=== PATIENT | male | born 1950 | race African-American/Black ===

== ENCOUNTER → 2020-01-27 | Outpatient (CLI) | payer MEDICARE, OTHER ==
[2014-09-13 09:23] VITALS: BP 110/67
[~2020-01-27] MED LIST: ACYC400T PO; AMLO1TAB91 PO; ASPI81TA59 PO; DOXY20TA5 PO; FLUV40CA3 PO; GLUC100018 PO; INSU100C4 SQ; INSU100I11 SQ; INSU100I13 SQ; INSU100I17 SQ; INSU100V8 SQ; LEVO150T5 PO; METF500T16 PO; MULT-658 PO; OMEP20CA16 PO
== END | disposition home or self-care (01) ==
LOC: LAB 16:06
PROVIDERS: ATTEND Internal Medicine Gastroenterology
DX: Z01.818 Encounter for other preprocedural examination (principal); Z11.59 Encounter for screening for other viral diseases
CPT/HCPCS: C9803; U0003; 36415

== ENCOUNTER → 2020-02-01 | Day surgery (SDC) | payer MEDICARE, OTHER ==
[~2020-02-01] MED LIST changes: +IV RINGERS,LACTATED 1000ML 1,000 ML IV ONE; +IV RINGERS,LACTATED 1000ML 1,000 ML IV SCH; +PROPOFOL 10 MG/ML (20ML) VIAL. IV ONE
[2020-02-01 09:07] VITALS: BP 132/80
--- NOTE | 2020-02-01 10:18 | HP ---
ADMIT DATE: 02/01/2020 UPDATED HISTORY AND PHYSICAL REASON FOR CONSULTATION: History of colonic polyps. REFERRING PHYSICIAN: Ochoa Quiros MD HISTORY OF PRESENT ILLNESS: This is a 69-year-old -[place]ian male with past medical history significant for diabetes, history of colonic polyps, diverticulosis, hypothyroidism, hypertension, hyperlipidemia, is seen for interval colon exam. He has had polyps in the past. Bowel habits are regular without diarrhea or constipation. There has been no melena or hematochezia. Family history is unrevealing for colon cancer. He is otherwise without additional complaints. PAST MEDICAL HISTORY: Significant for hypertension, diabetes, hypothyroidism, gastroesophageal reflux disease. ALLERGIES: None. MEDICATIONS: Include acyclovir, amlodipine, aspirin, doxycycline, fluvastatin, glucosamine, insulin, levothyroxine, metformin, multivitamin, omeprazole. FAMILY HISTORY: Significant for gastric cancer with a sibling, colorectal cancer with mother, diabetes with an uncle, hypertension with both parents and pancreatic cancer in mother. PAST SURGICAL HISTORY: Status post eye surgery and vasectomy. REVIEW OF SYSTEMS: Per records. PHYSICAL EXAMINATION: GENERAL: Reveals a well-nourished, well-developed -[place]ian male who is alert, cooperative, in no acute distress. VITAL SIGNS: Temperature 97.5, pulse 81, respirations 20. LUNGS: Clear. CARDIOVASCULAR: Reveals an S1, S2 without S3, S4 or appreciable murmur. ABDOMEN: Reveals a soft abdomen, normal bowel sounds, without appreciable hepatosplenomegaly. EXTREMITIES: Reveals no cyanosis, clubbing or edema. IMPRESSION: History of colonic polyps. Surveillance exam is recommended at this time. Risks and benefits of procedure including risk of hemorrhage and perforation during the operation discussed. The patient is willing to proceed. CAROLINA MOELLER MD DR: MEME/haider JOB#: [id number] / [id number] ecc ____, ____
--- NOTE | 2020-02-02 17:07 | PATHOLOGY ---
[facility] Accession Number: [id number] . 01 Material submitted: . PART A: colon - TRANSVERSE POLYPECTOMY. Modifiers: transverse PART B: ileo-cecal valve - ILEOCECAL VALVE BIOPSY . 01 Clinical history: . Screening colon . 02 Diagnosis: A. Colonic mucosa, transverse colon polypectomy: - Tubular adenoma. . B. Colonic mucosa, ileocecal valve biopsies: - Tubulovillous adenoma, predominantly tubular. LBQ 02/02/2020 1309 Local . 02 Comment: There is no high grade dysplasia or evidence of malignancy. (JPM/db; 02/02/2020) . 02 Electronically signed: . Cm Powers MD, Pathologist NPI- [id number] . 01 Gross description: . A. The specimen is received in formalin, labeled "Lauri White, transverse polyp". Received is a segment of pale ball soft tissue measuring 0.3 cm in maximum dimensions. The specimen is submitted entirely in cassette A1. . B. The specimen is received in formalin, labeled "Lauri White, ileocecal bowel biopsy". Received are six segments of pale ball soft tissue ranging in size from 0.3 to 0.4 cm in maximum dimensions. The specimen is submitted entirely in cassette B1. (CAA; 02/01/2020) QA/QA 02/01/2020 1507 Local . 02 Pathologist provided ICD-10: D12.3, D12.0 . 02 CPT . 576318, 352932 Specimen Comment: A courtesy copy of this report has been sent to [phone], [phone] Specimen Comment: [id number] Specimen Comment: Report sent to / DR POOLE Performed at: [address] [place] [address] [address], [place], [place] [id number] MD Geraldo Monroe MD Phone: [phone] Performed at: [address] [id number] MD Cm Powers MD Phone: [phone]
== END | disposition home or self-care (01) ==
LOC: ENDOS 06:54
PROVIDERS: ATTEND Internal Medicine Gastroenterology
DX: Z12.11 Encounter for screening for malignant neoplasm of colon (principal); D12.3 Benign neoplasm of transverse colon; D12.0 Benign neoplasm of cecum; I10 Essential (primary) hypertension; E11.9 Type 2 diabetes mellitus without complications; E03.9 Hypothyroidism, unspecified; K21.9 Gastro-esophageal reflux disease without esophagitis; Z86.010 Personal history of colon polyps; Z79.899 Other long term (current) drug therapy; Z98.890 Other specified postprocedural states; Z79.4 Long term (current) use of insulin; Z79.82 Long term (current) use of aspirin; Z80.0 Family history of malignant neoplasm of digestive organs; Z83.3 Family history of diabetes mellitus; Z82.49 Family history of ischemic heart disease and other diseases of the circulatory system
CPT/HCPCS: 45380; 45385; 82962; 88305; J2704; 45384

== ENCOUNTER → 2020-04-05 | Outpatient (CLI) | payer MEDICARE ==
[2020-02-01 09:07] VITALS: BP 132/80
[~2020-04-05] MED LIST changes: -IV RINGERS,LACTATED 1000ML 1,000 ML IV ONE; -IV RINGERS,LACTATED 1000ML 1,000 ML IV SCH; -PROPOFOL 10 MG/ML (20ML) VIAL. IV ONE
[2020-04-05 15:11] LABS: HEMATOCRIT 43.1 % (39.0-53.0); HEMOGLOBIN 14.5 g/dL (13.0-17.5); WHITE BLOOD COUNT 5.1 x10^3/uL (4.0-11.0)
[2020-04-05 15:25] LABS: CREATININE 1.2 mg/dL (0.7-1.3); GFR 72.9; POTASSIUM 3.8 mmol/L (3.5-5.1)
== END | disposition home or self-care (01) ==
LOC: LAB 14:01
PROVIDERS: ATTEND Surgery
DX: Z01.818 Encounter for other preprocedural examination (principal); Z11.59 Encounter for screening for other viral diseases; K63.5 Polyp of colon
CPT/HCPCS: 80048; 85027; U0003

== ENCOUNTER 2020-04-10 11:14 | Inpatient (IN) | payer MEDICARE ==
[2020-04-10] VITALS (8 sets, daily range): BP systolic 115–140; BP diastolic 61–84
[~2020-04-10] VITALS: Ht 167.6 cm; Wt 90.7 kg
[~2020-04-10 11:14] MED LIST changes: +ACETAMINOPHEN 500 MG TABLET PO PRN; +DEXAMETHASONE SOD PHOS 20 MG/5 ML VIAL. ONE; +FAMOTIDINE 20 MG/2 ML VIAL ONE; +GLYCOPYRROLATE 1 MG/5 ML VIAL. ONE; +INDOCYANINE GREEN 25 MG VIAL. IVP ONE; +IV RINGERS,LACTATED 1000ML 1,000 ML IV SCH; +LIDOCAINE 2% PF 5 ML VIAL. ONE; +ONDANSETRON PF 4 MG/2 ML VIAL. IV PRN; +ONDANSETRON PF 4 MG/2 ML VIAL. ONE; +PROCHLORPERAZINE 10 MG/2 ML VIAL. IV PRN; +PROPOFOL 10 MG/ML (20ML) VIAL. IV ONE; +ROCURONIUM 50 MG/5 ML VIAL. ONE; +ePHEDrine PF IN SALINE 50 MG/10 ML SYRINGE. IV ONE; +fentaNYL PF VIAL 100 MCG/2 ML VIAL IV PRN; +fentaNYL PF VIAL 100 MCG/2 ML VIAL ONE
[2020-04-10] MEDS ORDERED: INSULIN LISPRO 100 UNIT/ML 3ML VIAL for OP,RR ONLY. SQ PRN (12:00)
[2020-04-10] MEDS ORDERED: BUPIVACAINE-EPI 0.25%-1:200000 MPF 30 ML VIAL. ONE (12:35)
[2020-04-10] MEDS ORDERED: MIDAZOLAM HCL/PF 2 MG/2 ML VIAL. ONE (12:37)
[2020-04-10] MEDS ORDERED: fentaNYL PF VIAL 100 MCG/2 ML VIAL ONE ×2 (13:21→16:28)
[2020-04-10] MEDS ORDERED: SEVOFLURANE > 120 MINUTES. IH ONE (13:42)
[2020-04-10] MEDS ORDERED: NEOSTIGMINE METHYLSULFATE 5 MG/5 ML SYRINGE. ONE (13:42)
[2020-04-10] MEDS: IV DEXTROSE 5%-LACT RINGERS 1,000 ML IV SCH (15:59)
--- NOTE | 2020-04-10 15:59 | PDOC4 ---
Operative Note Operative Note Date: 04/10/2020 at 1552 Preoperative diagnosis: Cecal polyp Postoperative diagnosis: Same Procedure: Robotic assisted laparoscopic right colon resection with primary anastomosis Surgeon: Salo Specimen: Terminal ileum and cecum Dictation: Patient is a 69-year-old gentleman who underwent colonoscopy was found to have a large polyp at the cecum was too big to be removed totally with the colonoscope. Biopsies were benign. Procedure of robotic assisted laparoscopic right colon resection was explained to the patient detail was benefits were also discussed including bleeding infection injury to intra- abdominal contents nonhealing of the anastomosis necessitating further or open operations alternatives to this procedure also discussed with the patient who seemed to understand and gave both verbal and written consent to have the procedure performed. Patient was taken to the operating room placed in the supine position general anesthesia was initiated once patient was sleeping in bed his abdomen was prepped and draped usual sterile fashion using ChloraPrep and area in the left upper quadrant was injected quarter percent Marcaine with epinephrine incision was made 11 blade scalpel and a 5 mm Visiport was placed under direct visualization in the abdomen and a pneumoperitoneum was created. 5 mm scope was placed within the abdomen and inspected. At this point a 8 mm da Duarte camera port was placed in the left midabdomen and 8 mm da Duarte port was placed in the left lower abdomen a 5 mm assist port was placed in the midline of the pelvis the 5 mm Visiport placed in left upper quadrant was changed out for a 12 mm ventral port. Surgeon went to the robotic console using a grasper and Endo Octavio scissors the terminal ileum was freed up from its lateral attachments with sharp dissection the white line of Toldt was taken down with sharp dissection. A window was propagated in the mesentery of the small bowel at the terminal ileum with Endo Octavio scissors and electrocautery and a ROSTIA stapler was used to staple and transect the terminal ileum. Using vessel sealer the mesentery was taken down along the terminal ileum and cecum to the midportion of the ascending colon and again a ROSITA stapler through the da Duarte port was used to staple and transect the colon 2 loads were used. The specimen was then placed in the right lower quadrant. The distal small bowel was brought up to the proximal colon a [id number] anastomosis was performed with a stapler and a isoperistaltic fashion. Using 3-0 Vicryl the proximal end of the colon was sewn to the proximal end of the small bowel a enterotomy was made in the small bowel as well as the colon and using the da Duarte stapler was brought in place through the enterotomies and a stapled anastomosis was performed. The enterotomy at the staple line was closed with a running 2 OV lock absorbable suture. Sutures removed from the abdomen the pneumoperitoneum was reduced the surgeon went back to the operative field and incision was made low in the midline incorporating the 5 mm port site the specimen was brought out through this incision. The peritoneum was closed with a running 2-0 Vicryl suture fascia was closed with a oh looped PDS. Skin was reapproximated all port sites for subcuticular Monocryl Mastisol Steri-Strips and island dressings were applied. Specimen was opened on the back table which did show a large polyp within the cecum this was sent for permanent pathology. Patient was awakened and extubated in the operating room taken to recovery in stable condition all sponge instrument needle counts listed as correct estimated blood loss 10 mL VIVIAN VAZQUEZ MD Apr 10, 2020 15:59
[2020-04-10] MEDS ORDERED: 0.9 % SODIUM CHLORIDE 10 ML DISP.SYRIN. IV PRN (16:00)
[2020-04-10] MEDS ORDERED: ONDANSETRON PF 4 MG/2 ML VIAL. IV PRN (16:00)
[2020-04-10] MEDS: fentaNYL PF VIAL 100 MCG/2 ML VIAL IV PRN ×2 (16:33→16:43)
[2020-04-10] MEDS ORDERED: KETOROLAC 30 MG/ML VIAL. ONE (16:57)
[2020-04-10] MEDS: MORPHINE SULFATE 2 MG/ML VIAL. IV PRN ×3 (17:00→21:40)
[2020-04-10] MEDS ORDERED: KETOROLAC 30 MG/ML VIAL. IVP ONE (17:00)
[2020-04-10] MEDS ORDERED: HYDROmorphone 2 MG/ML VIAL ONE (17:14)
[2020-04-10] MEDS: HYDROmorphone 2 MG/ML VIAL IV PRN ×4 (17:18→17:49)
[2020-04-10] MEDS ORDERED: PROCHLORPERAZINE 10 MG/2 ML VIAL. ONE (17:57)
[2020-04-10] MEDS: KETOROLAC 15 MG/ML VIAL. IV SCH ×2 (18:00→23:00)
--- NOTE | 2020-04-10 19:07 | NUR ---
RN received report from day shift RN. Patient is sleeping at this time. Bed in lowest position with call light in reach. Will continue to monitor.
[2020-04-10] MEDS: oxyCODONE/APAP 5/325 1 TAB TABLET PO PRN (19:40)
[2020-04-10] MEDS: cefOXitin SODIUM IV Push 1 GM VIAL. IVP SCH (21:41)
[2020-04-10] MEDS ORDERED: INSULIN LISPRO 300 UNITS/3 ML VIAL. SQ ONE (22:00)
[2020-04-10] MEDS ORDERED: DEXTROSE 50% 25 GM / 50ML DISP.SYRIN. IV PRN (22:00)
[2020-04-10] MEDS: INSULIN GLARGINE SYRINGE. SQ SCH (23:04)
[2020-04-11 03:00] VITALS: BP 114/58
[2020-04-11] MEDS: cefOXitin SODIUM IV Push 1 GM VIAL. IVP SCH ×2 (05:27→14:11)
[2020-04-11] MEDS: KETOROLAC 15 MG/ML VIAL. IV SCH ×4 (05:28→23:46)
[2020-04-11] MEDS: IV DEXTROSE 5%-LACT RINGERS 1,000 ML IV SCH ×2 (05:32→18:16)
[2020-04-11 05:51] LABS: BASO % 0 % (0-3); EOS % 0 % (0-3); HEMATOCRIT 44.4 % (39.0-53.0); HEMOGLOBIN 14.6 g/dL (13.0-17.5); LYMPH # 0.6 x10^3/uL (1.0-4.8); LYMPH % 7 % (24-48); MEAN CORPUSCULAR HEMOGLOBIN 29 pg (25-35); MEAN CORPUSCULAR HGB CONC 33 g/dL (31-37); MEAN CORPUSCULAR VOLUME 90 fL (79-100); MONO # 0.5 x10^3/uL (0.0-1.1); MONO % 5 % (0-9); NEUT # 7.6 x10^3/uL (1.8-7.7); NEUT % 88 % (31-73); PLATELET COUNT 217 x10^3/uL (140-400); RED BLOOD COUNT 4.96 x10^6/uL (4.30-5.70); RED CELL DISTRIBUTION WIDTH 15.8 % (11.5-14.5); WHITE BLOOD COUNT 8.7 x10^3/uL (4.0-11.0)
[2020-04-11 07:00] VITALS: BP 108/69
--- NOTE | 2020-04-11 07:52 | PDOC ---
SURGICAL PROGRESS NOTE DATE: 04/11/20 TIME: 07:50 Subjective Patient sitting up on the edge of the bed states he is feeling good other than being sore in the abdomen no nausea tolerating liquids Vital Signs Vital Signs Date Time Temp Pulse Resp B/P (MAP) Pulse Ox O2 Delivery O2 Flow Rate FiO2 04/11/20 03:00 99.3 121 18 114/58 (76) 91 Nasal Cannula 2.0 99.3 I&O Intake and Output 04/11/20 07:00 Intake Total 2450 ml Output Total 2010 ml Balance 440 ml Intake Oral 400 ml IV Total 2050 ml Output Urine Total 2000 ml Estimated Blood Loss 10 ml PATIENT HAS A JOSEPH: No General: Alert, Oriented X3, Cooperative, mild distress Abdomen: Normal bowel sounds, Soft, Other (Mild incisional tenderness wounds clean dry and intact) Labs Laboratory Tests Test 04/10/20 11:48 04/10/20 16:15 04/10/20 20:27 04/11/20 04:16 Glucose (Fingerstick) 153 mg/dL (70-99) 141 mg/dL (70-99) 255 mg/dL (70-99) White Blood Count 8.7 x10^3/uL (4.0-11.0) Red Blood Count 4.96 x10^6/uL (4.30-5.70) Hemoglobin 14.6 g/dL (13.0-17.5) Hematocrit 44.4 % (39.0-53.0) Mean Corpuscular Volume 90 fL (79-100) Mean Corpuscular Hemoglobin 29 pg (25-35) Mean Corpuscular Hemoglobin Concent 33 g/dL (31-37) Red Cell Distribution Width 15.8 % (11.5-14.5) Platelet Count 217 x10^3/uL (140-400) Neutrophils (%) (Auto) 88 % (31-73) Lymphocytes (%) (Auto) 7 % (24-48) Monocytes (%) (Auto) 5 % (0-9) Eosinophils (%) (Auto) 0 % (0-3) Basophils (%) (Auto) 0 % (0-3) Neutrophils # (Auto) 7.6 x10^3/uL (1.8-7.7) Lymphocytes # (Auto) 0.6 x10^3/uL (1.0-4.8) Monocytes # (Auto) 0.5 x10^3/uL (0.0-1.1) Eosinophils # (Auto) 0.0 x10^3/uL (0.0-0.7) Basophils # (Auto) 0.0 x10^3/uL (0.0-0.2) Laboratory Tests Test 04/10/20 11:48 04/10/20 16:15 04/10/20 20:27 04/11/20 04:16 Glucose (Fingerstick) 153 mg/dL (70-99) 141 mg/dL (70-99) 255 mg/dL (70-99) White Blood Count 8.7 x10^3/uL (4.0-11.0) Red Blood Count 4.96 x10^6/uL (4.30-5.70) Hemoglobin 14.6 g/dL (13.0-17.5) Hematocrit 44.4 % (39.0-53.0) Mean Corpuscular Volume 90 fL (79-100) Mean Corpuscular Hemoglobin 29 pg (25-35) Mean Corpuscular Hemoglobin Concent 33 g/dL (31-37) Red Cell Distribution Width 15.8 % (11.5-14.5) Platelet Count 217 x10^3/uL (140-400) Neutrophils (%) (Auto) 88 % (31-73) Lymphocytes (%) (Auto) 7 % (24-48) Monocytes (%) (Auto) 5 % (0-9) Eosinophils (%) (Auto) 0 % (0-3) Basophils (%) (Auto) 0 % (0-3) Neutrophils # (Auto) 7.6 x10^3/uL (1.8-7.7) Lymphocytes # (Auto) 0.6 x10^3/uL (1.0-4.8) Monocytes # (Auto) 0.5 x10^3/uL (0.0-1.1) Eosinophils # (Auto) 0.0 x10^3/uL (0.0-0.7) Basophils # (Auto) 0.0 x10^3/uL (0.0-0.2) Assessment/Plan Status post laparoscopic robotic assisted right colon resection Awaiting return of bowel function Justicifation of Admission Dx: Justifications for Admission: Justification of Admission Dx: Yes VIVIAN VAZQUEZ MD Apr 11, 2020 07:52
[2020-04-11] MEDS: INSULIN LISPRO 300 UNITS/3 ML VIAL. SQ SCH ×3 (08:00→17:27)
[2020-04-11 08:05] LABS: % BANDS 11 % (0-9); % LYMPHS 7 % (24-48); % MONOS 3 % (0-10); % SEGS 79 % (35-66); PLT ESTIMATE ADEQUATE (ADEQUATE)
[2020-04-11] MEDS: oxyCODONE/APAP 5/325 1 TAB TABLET PO PRN ×3 (08:35→19:24)
--- NOTE | 2020-04-11 09:31 | NUR ---
SW following. Discussed with RN, pt from home, clear liquid diet, surgery 04/10. Pt to work with therapy today. At times is needing O2 - RN attempting to wean. SW will continue to follow for any discharge planning needs.
--- NOTE | 2020-04-11 10:36 | HP ---
ADMIT DATE: 04/10/2020 CHIEF COMPLAINT: Postop day 1 cecal polyp resection and right colon resection with primary anastomosis. HISTORY OF PRESENT ILLNESS: The patient is a pleasant middle-aged male who underwent a right colon resection yesterday. He apparently has a cecal polyp. The patient is now postop day 1 and we have been requested to see the patient for medical evaluation and treatment of comorbidities. PAST MEDICAL HISTORY: The above-mentioned cecal polyp, hypertension, GERD, diabetes, hypothyroidism, viral syndrome and he is on acyclovir for that. ALLERGIES: None. FAMILY HISTORY: Diabetes. SOCIAL HISTORY: He does not drink, smoke or take drugs. MEDICATIONS: Reviewed, please refer to the MRAD. He is on acyclovir, fluvastatin, amlodipine, olmesartan, aspirin, omeprazole, metformin, insulin, vitamins and Synthroid. REVIEW OF SYSTEMS: GENERAL: No history of weight change, weakness or fevers. SKIN: No bruising, hair changes or rashes. EYES: No blurred, double or loss of vision. NOSE AND THROAT: No history of nosebleeds, hoarseness or sore throat. HEART: No history of palpitations, chest pain or shortness of breath on exertion. LUNGS: Denies cough, hemoptysis, wheezing or shortness of breath. GASTROINTESTINAL: Denies changes in appetite, nausea, vomiting, diarrhea or constipation. He complains of abdominal pain. GENITOURINARY: No history of frequency, urgency, hesitancy or nocturia. NEUROLOGIC: Denies history of numbness, tingling, tremor or weakness. PSYCHIATRIC: No history of panic, anxiety or depression. ENDOCRINE: No history of heat or cold intolerance, polyuria or polydipsia. EXTREMITIES: Denies muscle weakness, joint pain, pain on walking or stiffness. PHYSICAL EXAMINATION: VITALS: Within normal limits and are stable. GENERAL: No apparent distress. Alert and oriented. HEENT: Normal cephalic atraumatic, external auditory canals are patent. EYES: Extraocular muscles are intact, pupils are equally round and reactive to light and accommodation. MUSCULOSKELETAL: Well developed, well nourished, good range of motion ENDOCRINE: No thyromegaly was palpated. LYMPHATICS: No cervical chain or axillary nodes were noted. HEMATOPOIETIC: No bruising. NECK: Supple, no JVD, no thyromegaly was noted. LUNGS: Clear to auscultation in all lung villalba without rhonchi or wheezing. HEART: RRR, S1, S2 present. Peripheral pulses intact, no obvious murmurs were noted. ABDOMEN: Soft, nontender. No organomegaly. Normal bowel sounds. He has clean, dry and intact dressing in the mid lower quadrant. EXTREMITIES: Without any cyanosis, clubbing, or edema. Pedal pulses intact. Homans sign is negative. NEUROLOGIC: Normal speech, normal tone. A & O x3, moves all extremities, no obvious focal deficits. PSYCHIATRIC: Normal affect, normal mood. Stable. SKIN: No ulcerations or rashes, good skin turgor, no jaundice. VASCULAR: Good capillary refill, neurovascular bundle appears to be intact. ASSESSMENT AND PLAN: Postoperative day 1, right colon resection with a cecal polyp. For now, he is doing well clinically. We will hope to advance his diet once bowel function returns, IV fluids, p.r.n. pain meds, wound care, resume home meds. We are awaiting the pathology report. RAIMUNDO FOUNTAIN DO DR: GERMÁN/haider JOB#: [id number] / [id number]
[2020-04-11 11:00] VITALS: BP 125/83
[2020-04-11 15:00] VITALS: BP 123/75
[2020-04-11 19:00] VITALS: BP 135/79
[2020-04-11] MEDS ORDERED: NON FORMULARY ITEM (Insulin Glargine,Hum.rec.anlog (Lantus Solostar) 18 UNIT) SQ SCH (21:00)
[2020-04-11] MEDS: INSULIN GLARGINE SYRINGE. SQ SCH (21:42)
[2020-04-11 23:00] VITALS: BP 149/89
[2020-04-12 03:00] VITALS: BP 121/63
[2020-04-12] MEDS: KETOROLAC 15 MG/ML VIAL. IV SCH ×2 (06:00→12:13)
[2020-04-12 06:05] LABS: BASO % 0 % (0-3); EOS # 0.1 x10^3/uL (0.0-0.7); EOS % 1 % (0-3); HEMATOCRIT 44.8 % (39.0-53.0); HEMOGLOBIN 14.8 g/dL (13.0-17.5); LYMPH % 12 % (24-48); MEAN CORPUSCULAR HEMOGLOBIN 29 pg (25-35); MEAN CORPUSCULAR HGB CONC 33 g/dL (31-37); MEAN CORPUSCULAR VOLUME 88 fL (79-100); MONO # 0.5 x10^3/uL (0.0-1.1); MONO % 6 % (0-9); NEUT # 6.9 x10^3/uL (1.8-7.7); NEUT % 81 % (31-73); PLATELET COUNT 217 x10^3/uL (140-400); RED BLOOD COUNT 5.08 x10^6/uL (4.30-5.70); RED CELL DISTRIBUTION WIDTH 15.8 % (11.5-14.5); WHITE BLOOD COUNT 8.5 x10^3/uL (4.0-11.0)
[2020-04-12 06:58] LABS: ALBUMIN 2.8 g/dL (3.4-5.0); ALBUMIN/GLOBULIN RATIO 0.7 (1.0-1.7); CREATININE 1.4 mg/dL (0.7-1.3); POTASSIUM 3.7 mmol/L (3.5-5.1); TOTAL BILIRUBIN 1.3 mg/dL (0.2-1.0); TOTAL PROTEIN 6.8 g/dL (6.4-8.2)
[2020-04-12 07:00] VITALS: BP 161/78
[2020-04-12] MEDS: IV DEXTROSE 5%-LACT RINGERS 1,000 ML IV SCH (07:59)
--- NOTE | 2020-04-12 08:47 | PDOC ---
PROGRESS NOTES Date of Service: DATE: 04/12/20 TIME: 08:46 Chief Complaint Chief Complaint ASSESSMENT AND PLAN: Postoperative day 2, right colon resection with a cecal polyp. diabetes plan advance his diet once bowel function returns, IV fluids, p.r.n. pain meds, wound care, resume home meds. await pathology report. DPOA DISCUSSION AND REVIEW 10 MIN A1C Operative Note Date: 04/10/2020 at 1552 Preoperative diagnosis: Cecal polyp Postoperative diagnosis: Same Procedure: Robotic assisted laparoscopic right colon resection with primary anastomosis Surgeon: Salo Specimen: Terminal ileum and cecum Dictation: Patient is a 69-year-old gentleman who underwent colonoscopy was found to have a large polyp at the cecum was too big to be removed totally with the colonoscope. Biopsies were benign. History of Present Illness History of Present Illness CHIEF COMPLAINT: Postop day 2 cecal polyp resection and right colon resection with primary anastomosis. HISTORY OF PRESENT ILLNESS: pleasant middle-aged male who underwent a right colon resection 04/10 He apparently has a cecal polyp. The patient is now postop day 2 and we have been requested to see the patient for medical evaluation and treatment of comorbidities. PAST MEDICAL HISTORY: cecal polyp, hypertension, GERD, diabetes, hypothyroidism, viral syndrome and he is on acyclovir Vitals Vitals Vital Signs Date Time Temp Pulse Resp B/P (MAP) Pulse Ox O2 Delivery O2 Flow Rate FiO2 04/12/20 07:00 98.3 106 16 161/78 (105) 92 Room Air 98.3 04/12/20 03:00 2.0 Physical Exam General: Alert, Oriented X3, Cooperative, No acute distress Heart: Regular rate, Normal S1 Lungs: Clear Abdomen: Normal bowel sounds, Soft, Other (Mild incisional tenderness wounds clean dry and intact) Extremities: No cyanosis, No edema Skin: No rashes Labs LABS Laboratory Tests Test 04/11/20 11:47 04/11/20 16:49 04/11/20 20:55 04/12/20 04:24 Glucose (Fingerstick) 284 mg/dL (70-99) 250 mg/dL (70-99) 186 mg/dL (70-99) White Blood Count 8.5 x10^3/uL (4.0-11.0) Red Blood Count 5.08 x10^6/uL (4.30-5.70) Hemoglobin 14.8 g/dL (13.0-17.5) Hematocrit 44.8 % (39.0-53.0) Mean Corpuscular Volume 88 fL (79-100) Mean Corpuscular Hemoglobin 29 pg (25-35) Mean Corpuscular Hemoglobin Concent 33 g/dL (31-37) Red Cell Distribution Width 15.8 % (11.5-14.5) Platelet Count 217 x10^3/uL (140-400) Neutrophils (%) (Auto) 81 % (31-73) Lymphocytes (%) (Auto) 12 % (24-48) Monocytes (%) (Auto) 6 % (0-9) Eosinophils (%) (Auto) 1 % (0-3) Basophils (%) (Auto) 0 % (0-3) Neutrophils # (Auto) 6.9 x10^3/uL (1.8-7.7) Lymphocytes # (Auto) 1.0 x10^3/uL (1.0-4.8) Monocytes # (Auto) 0.5 x10^3/uL (0.0-1.1) Eosinophils # (Auto) 0.1 x10^3/uL (0.0-0.7) Basophils # (Auto) 0.0 x10^3/uL (0.0-0.2) Sodium Level 134 mmol/L (136-145) Potassium Level 3.7 mmol/L (3.5-5.1) Chloride Level 98 mmol/L (98-107) Carbon Dioxide Level 26 mmol/L (21-32) Anion Gap 10 (6-14) Blood Urea Nitrogen 12 mg/dL (8-26) Creatinine 1.4 mg/dL (0.7-1.3) Estimated GFR (Cockcroft-Gault) 61.0 BUN/Creatinine Ratio 9 (6-20) Glucose Level 181 mg/dL (70-99) Calcium Level 8.0 mg/dL (8.5-10.1) Total Bilirubin 1.3 mg/dL (0.2-1.0) Aspartate Amino Transf (AST/SGOT) 16 U/L (15-37) Alanine Aminotransferase (ALT/SGPT) 12 U/L (16-63) Alkaline Phosphatase 75 U/L (46-116) Total Protein 6.8 g/dL (6.4-8.2) Albumin 2.8 g/dL (3.4-5.0) Albumin/Globulin Ratio 0.7 (1.0-1.7) Test 04/12/20 07:38 Glucose (Fingerstick) 182 mg/dL (70-99) Comment Review of Relevant I have reviewed the following items irwin (where applicable) has been applied. Labs Laboratory Tests Test 04/10/20 11:48 04/10/20 16:15 04/10/20 20:27 04/11/20 04:16 Glucose (Fingerstick) 153 mg/dL (70-99) 141 mg/dL (70-99) 255 mg/dL (70-99) White Blood Count 8.7 x10^3/uL (4.0-11.0) Red Blood Count 4.96 x10^6/uL (4.30-5.70) Hemoglobin 14.6 g/dL (13.0-17.5) Hematocrit 44.4 % (39.0-53.0) Mean Corpuscular Volume 90 fL (79-100) Mean Corpuscular Hemoglobin 29 pg (25-35) Mean Corpuscular Hemoglobin Concent 33 g/dL (31-37) Red Cell Distribution Width 15.8 % (11.5-14.5) Platelet Count 217 x10^3/uL (140-400) Neutrophils (%) (Auto) 88 % (31-73) Lymphocytes (%) (Auto) 7 % (24-48) Monocytes (%) (Auto) 5 % (0-9) Eosinophils (%) (Auto) 0 % (0-3) Basophils (%) (Auto) 0 % (0-3) Neutrophils # (Auto) 7.6 x10^3/uL (1.8-7.7) Lymphocytes # (Auto) 0.6 x10^3/uL (1.0-4.8) Monocytes # (Auto) 0.5 x10^3/uL (0.0-1.1) Eosinophils # (Auto) 0.0 x10^3/uL (0.0-0.7) Basophils # (Auto) 0.0 x10^3/uL (0.0-0.2) Segmented Neutrophils % 79 % (35-66) Band Neutrophils % 11 % (0-9) Lymphocytes % 7 % (24-48) Monocytes % 3 % (0-10) Platelet Estimate Adequate (ADEQUATE) Test 04/11/20 08:35 04/11/20 11:47 04/11/20 16:49 04/11/20 20:55 Glucose (Fingerstick) 237 mg/dL (70-99) 284 mg/dL (70-99) 250 mg/dL (70-99) 186 mg/dL (70-99) Test 04/12/20 04:24 04/12/20 07:38 White Blood Count 8.5 x10^3/uL (4.0-11.0) Red Blood Count 5.08 x10^6/uL (4.30-5.70) Hemoglobin 14.8 g/dL (13.0-17.5) Hematocrit 44.8 % (39.0-53.0) Mean Corpuscular Volume 88 fL (79-100) Mean Corpuscular Hemoglobin 29 pg (25-35) Mean Corpuscular Hemoglobin Concent 33 g/dL (31-37) Red Cell Distribution Width 15.8 % (11.5-14.5) Platelet Count 217 x10^3/uL (140-400) Neutrophils (%) (Auto) 81 % (31-73) Lymphocytes (%) (Auto) 12 % (24-48) Monocytes (%) (Auto) 6 % (0-9) Eosinophils (%) (Auto) 1 % (0-3) Basophils (%) (Auto) 0 % (0-3) Neutrophils # (Auto) 6.9 x10^3/uL (1.8-7.7) Lymphocytes # (Auto) 1.0 x10^3/uL (1.0-4.8) Monocytes # (Auto) 0.5 x10^3/uL (0.0-1.1) Eosinophils # (Auto) 0.1 x10^3/uL (0.0-0.7) Basophils # (Auto) 0.0 x10^3/uL (0.0-0.2) Sodium Level 134 mmol/L (136-145) Potassium Level 3.7 mmol/L (3.5-5.1) Chloride Level 98 mmol/L (98-107) Carbon Dioxide Level 26 mmol/L (21-32) Anion Gap 10 (6-14) Blood Urea Nitrogen 12 mg/dL (8-26) Creatinine 1.4 mg/dL (0.7-1.3) Estimated GFR (Cockcroft-Gault) 61.0 BUN/Creatinine Ratio 9 (6-20) Glucose Level 181 mg/dL (70-99) Calcium Level 8.0 mg/dL (8.5-10.1) Total Bilirubin 1.3 mg/dL (0.2-1.0) Aspartate Amino Transf (AST/SGOT) 16 U/L (15-37) Alanine Aminotransferase (ALT/SGPT) 12 U/L (16-63) Alkaline Phosphatase 75 U/L (46-116) Total Protein 6.8 g/dL (6.4-8.2) Albumin 2.8 g/dL (3.4-5.0) Albumin/Globulin Ratio 0.7 (1.0-1.7) Glucose (Fingerstick) 182 mg/dL (70-99) Laboratory Tests Test 04/11/20 11:47 04/11/20 16:49 04/11/20 20:55 04/12/20 04:24 Glucose (Fingerstick) 284 mg/dL (70-99) 250 mg/dL (70-99) 186 mg/dL (70-99) White Blood Count 8.5 x10^3/uL (4.0-11.0) Red Blood Count 5.08 x10^6/uL (4.30-5.70) Hemoglobin 14.8 g/dL (13.0-17.5) Hematocrit 44.8 % (39.0-53.0) Mean Corpuscular Volume 88 fL (79-100) Mean Corpuscular Hemoglobin 29 pg (25-35) Mean Corpuscular Hemoglobin Concent 33 g/dL (31-37) Red Cell Distribution Width 15.8 % (11.5-14.5) Platelet Count 217 x10^3/uL (140-400) Neutrophils (%) (Auto) 81 % (31-73) Lymphocytes (%) (Auto) 12 % (24-48) Monocytes (%) (Auto) 6 % (0-9) Eosinophils (%) (Auto) 1 % (0-3) Basophils (%) (Auto) 0 % (0-3) Neutrophils # (Auto) 6.9 x10^3/uL (1.8-7.7) Lymphocytes # (Auto) 1.0 x10^3/uL (1.0-4.8) Monocytes # (Auto) 0.5 x10^3/uL (0.0-1.1) Eosinophils # (Auto) 0.1 x10^3/uL (0.0-0.7) Basophils # (Auto) 0.0 x10^3/uL (0.0-0.2) Sodium Level 134 mmol/L (136-145) Potassium Level 3.7 mmol/L (3.5-5.1) Chloride Level 98 mmol/L (98-107) Carbon Dioxide Level 26 mmol/L (21-32) Anion Gap 10 (6-14) Blood Urea Nitrogen 12 mg/dL (8-26) Creatinine 1.4 mg/dL (0.7-1.3) Estimated GFR (Cockcroft-Gault) 61.0 BUN/Creatinine Ratio 9 (6-20) Glucose Level 181 mg/dL (70-99) Calcium Level 8.0 mg/dL (8.5-10.1) Total Bilirubin 1.3 mg/dL (0.2-1.0) Aspartate Amino Transf (AST/SGOT) 16 U/L (15-37) Alanine Aminotransferase (ALT/SGPT) 12 U/L (16-63) Alkaline Phosphatase 75 U/L (46-116) Total Protein 6.8 g/dL (6.4-8.2) Albumin 2.8 g/dL (3.4-5.0) Albumin/Globulin Ratio 0.7 (1.0-1.7) Test 04/12/20 07:38 Glucose (Fingerstick) 182 mg/dL (70-99) Medications Current Medications Indocyanine Green (Ic Green) 7.5 mg ONCE ONCE IVP ; Start 04/10/20 at 06:00; Stop 04/10/20 at 06:01; Status DC Ondansetron HCl (Zofran) 4 mg PRN Q6HRS PRN IV NAUSEA/VOMITING; Start 04/10/20 at 07:00; Stop 04/11/20 at 06:59; Status DC Fentanyl Citrate (Fentanyl 2ml Vial) 25 mcg PRN Q5MIN PRN IV MILD PAIN 1-3; Start 04/10/20 at 07:00; Stop 04/11/20 at 06:59; Status DC Fentanyl Citrate (Fentanyl 2ml Vial) 50 mcg PRN Q5MIN PRN IV MODERATE TO SEVERE PAIN Last administered on 04/10/20at 16:43; Start 04/10/20 at 07:00; Stop 04/11/20 at 06:59; Status DC Morphine Sulfate (Morphine Sulfate) 1 mg PRN Q10MIN PRN IV SEVERE PAIN 7-10 Last administered on 04/10/20at 17:12; Start 04/10/20 at 07:00; Stop 04/11/20 at 06:59; Status DC Ringer's Solution 1,000 ml @ 30 mls/hr Q24H IV Last administered on 04/10/20at 11:54; Start 04/10/20 at 07:00; Stop 04/10/20 at 18:59; Status DC Hydromorphone HCl (Dilaudid) 0.5 mg PRN Q10MIN PRN IV SEV PAIN, Second choice Last administered on 04/10/20at 17:49; Start 04/10/20 at 07:00; Stop 04/11/20 at 06:59; Status DC Prochlorperazine Edisylate (Compazine) 5 mg PACU PRN PRN IV NAUSEA, MRX1 Last administered on 04/10/20at 17:58; Start 04/10/20 at 07:00; Stop 04/11/20 at 06:59; Status DC Acetaminophen (Tylenol) 1,000 mg OC PROC PRN PO PRE-OP Last administered on 04/10/20at 11:55; Start 04/10/20 at 06:00; Stop 04/10/20 at 18:00; Status DC Cefazolin Sodium/ Dextrose 50 ml @ 100 mls/hr 1X PREOP PRN IV PRIOR TO PROCEDURE Last administered on 04/10/20at 12:53; Start 04/10/20 at 06:00; Stop 04/10/20 at 18:00; Status DC Propofol (Diprivan) 200 mg STK-MED ONCE IV ; Start 04/10/20 at 10:58; Stop 04/10/20 at 10:58; Status DC Lidocaine HCl (Lidocaine Pf 2% Vial) 5 ml STK-MED ONCE .ROUTE ; Start 04/10/20 at 10:58; Stop 04/10/20 at 10:58; Status DC Dexamethasone Sodium Phosphate (Decadron) 20 mg STK-MED ONCE .ROUTE ; Start 04/10/20 at 10:58; Stop 04/10/20 at 10:59; Status DC Ondansetron HCl (Zofran) 4 mg STK-MED ONCE .ROUTE ; Start 04/10/20 at 10:58; Stop 04/10/20 at 10:59; Status DC Famotidine (Pepcid Vial) 20 mg STK-MED ONCE .ROUTE ; Start 04/10/20 at 10:58; Stop 04/10/20 at 10:59; Status DC Ephedrine Sulfate (ePHEDrine PF IN SALINE SYRINGE) 50 mg STK-MED ONCE IV ; Start 04/10/20 at 10:58; Stop 04/10/20 at 10:59; Status DC Glycopyrrolate (Robinul) 1 mg STK-MED ONCE .ROUTE ; Start 04/10/20 at 10:59; Stop 04/10/20 at 10:59; Status DC Rocuronium [place] (Zemuron) 50 mg STK-MED ONCE .ROUTE ; Start 04/10/20 at 10:59; Stop 04/10/20 at 10:59; Status DC Fentanyl Citrate (Fentanyl 2ml Vial) 100 mcg STK-MED ONCE .ROUTE ; Start 04/10/20 at 11:00; Stop 04/10/20 at 11:00; Status DC Insulin Human Lispro (HumaLOG VIAL for OP,RR ONLY) 0-10 units PRN Q1HR PRN SQ PER PROTOCOL Last administered on 04/10/20at 12:02; Start 04/10/20 at 12:00; Stop 04/10/20 at 21:53; Status DC Bupivacaine HCl/ Epinephrine Bitart (Sensorcaine-Epi 0.25%-1:020430 Mpf) 30 ml STK-MED ONCE .ROUTE Last administered on 04/10/20at 13:22; Start 04/10/20 at 12:35; Stop 04/10/20 at 12:35; Status DC Midazolam HCl (Versed) 2 mg STK-MED ONCE .ROUTE ; Start 04/10/20 at 12:37; Stop 04/10/20 at 12:37; Status DC Fentanyl Citrate (Fentanyl 2ml Vial) 100 mcg STK-MED ONCE .ROUTE ; Start 04/10/20 at 13:21; Stop 04/10/20 at 13:21; Status DC Sevoflurane (Ultane) 90 ml STK-MED ONCE IH ; Start 04/10/20 at 13:42; Stop 04/10/20 at 13:42; Status DC Neostigmine [place] (Neostigmine Methylsulfate) 5 mg STK-MED ONCE .ROUTE ; Start 04/10/20 at 13:42; Stop 04/10/20 at 13:42; Status DC Cefoxitin Sodium (Mefoxin) 1 gm Q8H IVP Last administered on 04/11/20at 14:11; Start 04/10/20 at 21:00; Stop 04/11/20 at 13:01; Status DC Sodium Chloride (Normal Saline Flush) 3 ml QSHIFT PRN IV AFTER MEDS AND BLOOD DRAWS; Start 04/10/20 at 16:00 Morphine Sulfate (Morphine Sulfate) 2 mg PRN Q3HRS PRN IV PAIN Last administered on 04/10/20at 21:40; Start 04/10/20 at 16:00 Oxycodone/ Acetaminophen (Percocet 5/325) 1 tab PRN Q4HRS PRN PO MILD PAIN, 1ST CHOICE Last administered on 04/10/20at 19:40; Start 04/10/20 at 16:00 Oxycodone/ Acetaminophen (Percocet 5/325) 2 tab PRN Q4HRS PRN PO MODERATE PAIN, SEVERE PAIN Last administered on 04/11/20at 19:24; Start 04/10/20 at 16:00 Ketorolac Tromethamine (Toradol 15mg Vial) 15 mg Q6HRS IV Last administered on 04/11/20at 23:46; Start 04/10/20 at 18:00; Stop 04/12/20 at 17:59 Ondansetron HCl (Zofran) 4 mg PRN Q6HRS PRN IV NAUSEA, 1ST CHOICE; Start 04/10/20 at 16:00 Dextrose/Lactated Ringer's 1,000 ml @ 75 mls/hr [id number] IV Last administered on 04/11/20at 05:32; Start 04/10/20 at 15:59 Fentanyl Citrate (Fentanyl 2ml Vial) 100 mcg STK-MED ONCE .ROUTE ; Start 04/10/20 at 16:28; Stop 04/10/20 at 16:28; Status DC Ketorolac Tromethamine (Toradol 30mg Vial) 30 mg STK-MED ONCE .ROUTE ; Start 04/10/20 at 16:57; Stop 04/10/20 at 16:57; Status DC Ketorolac Tromethamine (Toradol 30mg Vial) 30 mg 1X ONCE IVP Last administered on 04/10/20at 17:04; Start 04/10/20 at 17:00; Stop 04/10/20 at 17:15; Status DC Hydromorphone HCl (Dilaudid) 2 mg STK-MED ONCE .ROUTE ; Start 04/10/20 at 17:14; Stop 04/10/20 at 17:15; Status DC Prochlorperazine Edisylate (Compazine) 10 mg STK-MED ONCE .ROUTE ; Start 04/10/20 at 17:57; Stop 04/10/20 at 17:57; Status DC Insulin Human Lispro (HumaLOG) 0-7 UNITS TIDWMEALS SQ Last administered on 04/11/20at 17:27; Start 04/11/20 at 08:00 Dextrose (Dextrose 50%-Water Syringe) 12.5 gm PRN Q15MIN PRN IV SEE COMMENTS; Start 04/10/20 at 22:00 Non-Formulary Medication (Insulin Glargine,Hum.rec.anlog (Lantus Solostar)) 18 unit HS SQ ; Start 04/11/20 at 21:00; Status UNV Insulin Human Lispro (HumaLOG) 6 units 1X ONCE SQ Last administered on 04/10/20at 23:05; Start 04/10/20 at 22:00; Stop 04/10/20 at 22:01; Status DC Insulin Glargine (Lantus Syringe) 18 unit QHS SQ Last administered on 04/11/20at 21:42; Start 04/10/20 at 22:30 Tamsulosin HCl (Flomax) 0.4 mg DAILY PO ; Start 04/12/20 at 09:00 Active Scripts Active Reported Children's Aspirin (Aspirin) 81 Mg Tab.chew 1 Tab PO DAILY 30 Days Humalog (Insulin Lispro) 100 Unit/1 Ml Insuln.pen SQ 8UNITS AC TID Centrum Silver Tablet (Multivits-Min/Fa/Lycopene/Lut) 1 Each Tablet 1 Each PO DAILY Metformin Hcl 500 Mg Tablet 500 Mg PO BID Levothyroxine Sodium 150 Mcg Tablet 150 Mcg PO DAILY Gulshan 5-20 Mg Tablet (Amlodipine Bes/Olmesartan Med) 1 Each Tablet 1 Each PO DAILY Fluvastatin Sodium 40 Mg Capsule 40 Mg PO HS Acyclovir 400 Mg Tablet 400 Mg PO DAILY Omeprazole 20 Mg Capsule.dr 20 Mg PO DAILY Lantus Solostar (Insulin Glargine,Hum.rec.anlog) 100 Unit/1 Ml Insuln.pen 18 Unit SQ HS Vitals/I & O Vital Sign - Last 24 Hours 04/11/20 04/11/20 04/11/20 04/11/20 09:35 11:00 14:13 15:00 Temp 98.6 98.8 98.6 98.8 Pulse 100 97 Resp 20 18 B/P (MAP) 125/83 (97) 123/75 (91) Pulse Ox 92 92 O2 Delivery Room Air Room Air Room Air Room Air 04/11/20 04/11/20 04/11/20 04/11/20 15:13 19:00 19:24 20:00 Temp 97.9 97.9 Pulse 101 Resp 18 B/P (MAP) 135/79 (97) Pulse Ox 93 O2 Delivery Room Air Room Air Room Air Nasal Cannula O2 Flow Rate 2.0 04/11/20 04/11/20 04/12/20 04/12/20 20:24 23:00 03:00 07:00 Temp 99.4 99.5 98.3 99.4 99.5 98.3 Pulse 111 99 106 Resp 18 18 16 B/P (MAP) 149/89 (109) 121/63 (82) 161/78 (105) Pulse Ox 94 98 92 O2 Delivery Room Air Nasal Cannula Nasal Cannula Room Air O2 Flow Rate 2.0 2.0 Intake and Output 04/11/20 04/11/20 04/12/20 15:00 23:00 07:00 Intake Total 1280 ml Output Total 1500 ml Balance 1280 ml -1500 ml Justicifation of Admission Dx: Justifications for Admission: Justification of Admission Dx: Yes FULBRIGHT,VIVIAN W MD Apr 12, 2020 08:47
[2020-04-12] MEDS: TAMSULOSIN 0.4 MG CAP.ER.24H. PO SCH (09:20)
[2020-04-12] MEDS: INSULIN LISPRO 300 UNITS/3 ML VIAL. SQ SCH ×3 (09:26→17:15)
--- NOTE | 2020-04-12 09:50 | NUR ---
SW following. Discussed with RN, pt from home, room air, clear liquid diet. PT/OT recommending home. SW will continue to follow for any discharge planning needs.
[2020-04-12 11:00] VITALS: BP 152/79
--- NOTE | 2020-04-12 14:15 | NUR ---
PATIENTS' BLADDER SCANNED PER THIS MARKING MACHINE OPERATOR [id number] REVEALED, THIS MARKING MACHINE OPERATOR AND NURSE MATHEMATICAL TECHNICIAN ON THE UNIT ATTEMPTED TO STRAIGHT CATH THE PATIENT AND WAS UNSUCCESSFUL, DR. VAZQUEZ INFORMED AND INFORMED THIS MARKING MACHINE OPERATOR THAT HE WOULD HAVE A STAFF MEMBER FROM THE ED TO COME UP AND PLACE INDWELLING CATHETER.
[2020-04-12 15:00] VITALS: BP 150/83
--- NOTE | 2020-04-12 15:43 | PDOC ---
SURGICAL PROGRESS NOTE DATE: 04/12/20 TIME: 15:42 Subjective Patient unable to urinate denies any nausea vomiting not passing any flatus Vital Signs Vital Signs Date Time Temp Pulse Resp B/P (MAP) Pulse Ox O2 Delivery O2 Flow Rate FiO2 04/12/20 11:00 98.8 113 18 152/79 (103) 91 Room Air 98.8 04/12/20 03:00 2.0 I&O Intake and Output 04/12/20 07:00 Intake Total 1280 ml Output Total 1500 ml Balance -220 ml Intake Oral 1280 ml Output Urine Total 1500 ml PATIENT HAS A JOSEPH: Yes General: Alert, Oriented X3, Cooperative, mild distress Abdomen: Normal bowel sounds, Soft, Other (Mild incisional tenderness wounds clean dry and intact) Labs Laboratory Tests Test 04/10/20 16:15 04/10/20 20:27 04/11/20 04:16 04/11/20 08:35 Glucose (Fingerstick) 141 mg/dL (70-99) 255 mg/dL (70-99) 237 mg/dL (70-99) White Blood Count 8.7 x10^3/uL (4.0-11.0) Red Blood Count 4.96 x10^6/uL (4.30-5.70) Hemoglobin 14.6 g/dL (13.0-17.5) Hematocrit 44.4 % (39.0-53.0) Mean Corpuscular Volume 90 fL (79-100) Mean Corpuscular Hemoglobin 29 pg (25-35) Mean Corpuscular Hemoglobin Concent 33 g/dL (31-37) Red Cell Distribution Width 15.8 % (11.5-14.5) Platelet Count 217 x10^3/uL (140-400) Neutrophils (%) (Auto) 88 % (31-73) Lymphocytes (%) (Auto) 7 % (24-48) Monocytes (%) (Auto) 5 % (0-9) Eosinophils (%) (Auto) 0 % (0-3) Basophils (%) (Auto) 0 % (0-3) Neutrophils # (Auto) 7.6 x10^3/uL (1.8-7.7) Lymphocytes # (Auto) 0.6 x10^3/uL (1.0-4.8) Monocytes # (Auto) 0.5 x10^3/uL (0.0-1.1) Eosinophils # (Auto) 0.0 x10^3/uL (0.0-0.7) Basophils # (Auto) 0.0 x10^3/uL (0.0-0.2) Segmented Neutrophils % 79 % (35-66) Band Neutrophils % 11 % (0-9) Lymphocytes % 7 % (24-48) Monocytes % 3 % (0-10) Platelet Estimate Adequate (ADEQUATE) Test 04/11/20 11:47 04/11/20 16:49 04/11/20 20:55 04/12/20 04:24 Glucose (Fingerstick) 284 mg/dL (70-99) 250 mg/dL (70-99) 186 mg/dL (70-99) White Blood Count 8.5 x10^3/uL (4.0-11.0) Red Blood Count 5.08 x10^6/uL (4.30-5.70) Hemoglobin 14.8 g/dL (13.0-17.5) Hematocrit 44.8 % (39.0-53.0) Mean Corpuscular Volume 88 fL (79-100) Mean Corpuscular Hemoglobin 29 pg (25-35) Mean Corpuscular Hemoglobin Concent 33 g/dL (31-37) Red Cell Distribution Width 15.8 % (11.5-14.5) Platelet Count 217 x10^3/uL (140-400) Neutrophils (%) (Auto) 81 % (31-73) Lymphocytes (%) (Auto) 12 % (24-48) Monocytes (%) (Auto) 6 % (0-9) Eosinophils (%) (Auto) 1 % (0-3) Basophils (%) (Auto) 0 % (0-3) Neutrophils # (Auto) 6.9 x10^3/uL (1.8-7.7) Lymphocytes # (Auto) 1.0 x10^3/uL (1.0-4.8) Monocytes # (Auto) 0.5 x10^3/uL (0.0-1.1) Eosinophils # (Auto) 0.1 x10^3/uL (0.0-0.7) Basophils # (Auto) 0.0 x10^3/uL (0.0-0.2) Sodium Level 134 mmol/L (136-145) Potassium Level 3.7 mmol/L (3.5-5.1) Chloride Level 98 mmol/L (98-107) Carbon Dioxide Level 26 mmol/L (21-32) Anion Gap 10 (6-14) Blood Urea Nitrogen 12 mg/dL (8-26) Creatinine 1.4 mg/dL (0.7-1.3) Estimated GFR (Cockcroft-Gault) 61.0 BUN/Creatinine Ratio 9 (6-20) Glucose Level 181 mg/dL (70-99) Calcium Level 8.0 mg/dL (8.5-10.1) Total Bilirubin 1.3 mg/dL (0.2-1.0) Aspartate Amino Transf (AST/SGOT) 16 U/L (15-37) Alanine Aminotransferase (ALT/SGPT) 12 U/L (16-63) Alkaline Phosphatase 75 U/L (46-116) Total Protein 6.8 g/dL (6.4-8.2) Albumin 2.8 g/dL (3.4-5.0) Albumin/Globulin Ratio 0.7 (1.0-1.7) Test 04/12/20 07:38 04/12/20 10:55 Glucose (Fingerstick) 182 mg/dL (70-99) 238 mg/dL (70-99) Laboratory Tests Test 04/11/20 16:49 04/11/20 20:55 04/12/20 04:24 04/12/20 07:38 Glucose (Fingerstick) 250 mg/dL (70-99) 186 mg/dL (70-99) 182 mg/dL (70-99) White Blood Count 8.5 x10^3/uL (4.0-11.0) Red Blood Count 5.08 x10^6/uL (4.30-5.70) Hemoglobin 14.8 g/dL (13.0-17.5) Hematocrit 44.8 % (39.0-53.0) Mean Corpuscular Volume 88 fL (79-100) Mean Corpuscular Hemoglobin 29 pg (25-35) Mean Corpuscular Hemoglobin Concent 33 g/dL (31-37) Red Cell Distribution Width 15.8 % (11.5-14.5) Platelet Count 217 x10^3/uL (140-400) Neutrophils (%) (Auto) 81 % (31-73) Lymphocytes (%) (Auto) 12 % (24-48) Monocytes (%) (Auto) 6 % (0-9) Eosinophils (%) (Auto) 1 % (0-3) Basophils (%) (Auto) 0 % (0-3) Neutrophils # (Auto) 6.9 x10^3/uL (1.8-7.7) Lymphocytes # (Auto) 1.0 x10^3/uL (1.0-4.8) Monocytes # (Auto) 0.5 x10^3/uL (0.0-1.1) Eosinophils # (Auto) 0.1 x10^3/uL (0.0-0.7) Basophils # (Auto) 0.0 x10^3/uL (0.0-0.2) Sodium Level 134 mmol/L (136-145) Potassium Level 3.7 mmol/L (3.5-5.1) Chloride Level 98 mmol/L (98-107) Carbon Dioxide Level 26 mmol/L (21-32) Anion Gap 10 (6-14) Blood Urea Nitrogen 12 mg/dL (8-26) Creatinine 1.4 mg/dL (0.7-1.3) Estimated GFR (Cockcroft-Gault) 61.0 BUN/Creatinine Ratio 9 (6-20) Glucose Level 181 mg/dL (70-99) Calcium Level 8.0 mg/dL (8.5-10.1) Total Bilirubin 1.3 mg/dL (0.2-1.0) Aspartate Amino Transf (AST/SGOT) 16 U/L (15-37) Alanine Aminotransferase (ALT/SGPT) 12 U/L (16-63) Alkaline Phosphatase 75 U/L (46-116) Total Protein 6.8 g/dL (6.4-8.2) Albumin 2.8 g/dL (3.4-5.0) Albumin/Globulin Ratio 0.7 (1.0-1.7) Test 04/12/20 10:55 Glucose (Fingerstick) 238 mg/dL (70-99) Assessment/Plan Status post laparoscopic right colon resection. Patient was unable to urinate so Joseph catheter was placed he did have some difficulties with catheter placement during surgery probably has a component of prostate hypertrophy Continue supportive care awaiting return of bowel function Justicifation of Admission Dx: Justifications for Admission: Justification of Admission Dx: Yes VIVIAN VAZQUEZ MD Apr 12, 2020 15:43
[2020-04-12 19:00] VITALS: BP 128/75
[2020-04-12] MEDS: INSULIN GLARGINE SYRINGE. SQ SCH (21:00)
[2020-04-12 23:00] VITALS: BP 130/71
[2020-04-13] MEDS: oxyCODONE/APAP 5/325 1 TAB TABLET PO PRN ×3 (00:20→18:10)
[2020-04-13 02:08] LABS: HEMOGLOBIN A1C 6.9 % (4.8-5.6)
[2020-04-13 03:00] VITALS: BP 130/76
[2020-04-13 05:59] LABS: BASO % 0 % (0-3); EOS # 0.2 x10^3/uL (0.0-0.7); EOS % 3 % (0-3); HEMATOCRIT 39.1 % (39.0-53.0); HEMOGLOBIN 12.9 g/dL (13.0-17.5); LYMPH # 0.9 x10^3/uL (1.0-4.8); LYMPH % 12 % (24-48); MEAN CORPUSCULAR HEMOGLOBIN 29 pg (25-35); MEAN CORPUSCULAR HGB CONC 33 g/dL (31-37); MEAN CORPUSCULAR VOLUME 88 fL (79-100); MONO # 0.5 x10^3/uL (0.0-1.1); MONO % 6 % (0-9); NEUT # 5.7 x10^3/uL (1.8-7.7); NEUT % 78 % (31-73); PLATELET COUNT 193 x10^3/uL (140-400); RED BLOOD COUNT 4.43 x10^6/uL (4.30-5.70); RED CELL DISTRIBUTION WIDTH 15.7 % (11.5-14.5); WHITE BLOOD COUNT 7.3 x10^3/uL (4.0-11.0)
[2020-04-13 06:56] LABS: ALBUMIN 2.1 g/dL (3.4-5.0); ALBUMIN/GLOBULIN RATIO 0.6 (1.0-1.7); CREATININE 1.1 mg/dL (0.7-1.3); GFR 80.5; TOTAL BILIRUBIN 1.2 mg/dL (0.2-1.0); TOTAL PROTEIN 5.7 g/dL (6.4-8.2)
[2020-04-13 07:00] VITALS: BP 155/83
[2020-04-13 07:05] LABS: POTASSIUM 3.5 mmol/L (3.5-5.1)
[2020-04-13] MEDS: INSULIN LISPRO 300 UNITS/3 ML VIAL. SQ SCH ×3 (08:00→17:00)
[2020-04-13] MEDS: TAMSULOSIN 0.4 MG CAP.ER.24H. PO SCH (08:11)
--- NOTE | 2020-04-13 08:16 | PDOC ---
SURGICAL PROGRESS NOTE DATE: 04/13/20 TIME: 08:15 Subjective Patient doing well complains of some abdominal soreness still stating he has not passed any flatus or bowel movement denies any nausea does not feel bloated taking clear liquids Vital Signs Vital Signs Date Time Temp Pulse Resp B/P (MAP) Pulse Ox O2 Delivery O2 Flow Rate FiO2 04/13/20 08:12 95 Room Air 04/13/20 03:00 98.6 107 18 130/76 (94) 98.6 04/13/20 00:20 2.0 I&O Intake and Output 04/13/20 07:00 Intake Total 350 ml Output Total 1600 ml Balance -1250 ml Intake Oral 350 ml Output Urine Total 1600 ml # Voids 2 PATIENT HAS A JOSEPH: Yes General: Alert, Oriented X3, Cooperative, mild distress Abdomen: Normal bowel sounds, Soft, Other (Mild incisional tenderness wounds clean dry and intact) Labs Laboratory Tests Test 04/11/20 08:35 04/11/20 11:47 04/11/20 16:49 04/11/20 20:55 Glucose (Fingerstick) 237 mg/dL (70-99) 284 mg/dL (70-99) 250 mg/dL (70-99) 186 mg/dL (70-99) Test 04/12/20 04:24 04/12/20 07:38 04/12/20 10:55 04/12/20 16:53 White Blood Count 8.5 x10^3/uL (4.0-11.0) Red Blood Count 5.08 x10^6/uL (4.30-5.70) Hemoglobin 14.8 g/dL (13.0-17.5) Hematocrit 44.8 % (39.0-53.0) Mean Corpuscular Volume 88 fL (79-100) Mean Corpuscular Hemoglobin 29 pg (25-35) Mean Corpuscular Hemoglobin Concent 33 g/dL (31-37) Red Cell Distribution Width 15.8 % (11.5-14.5) Platelet Count 217 x10^3/uL (140-400) Neutrophils (%) (Auto) 81 % (31-73) Lymphocytes (%) (Auto) 12 % (24-48) Monocytes (%) (Auto) 6 % (0-9) Eosinophils (%) (Auto) 1 % (0-3) Basophils (%) (Auto) 0 % (0-3) Neutrophils # (Auto) 6.9 x10^3/uL (1.8-7.7) Lymphocytes # (Auto) 1.0 x10^3/uL (1.0-4.8) Monocytes # (Auto) 0.5 x10^3/uL (0.0-1.1) Eosinophils # (Auto) 0.1 x10^3/uL (0.0-0.7) Basophils # (Auto) 0.0 x10^3/uL (0.0-0.2) Sodium Level 134 mmol/L (136-145) Potassium Level 3.7 mmol/L (3.5-5.1) Chloride Level 98 mmol/L (98-107) Carbon Dioxide Level 26 mmol/L (21-32) Anion Gap 10 (6-14) Blood Urea Nitrogen 12 mg/dL (8-26) Creatinine 1.4 mg/dL (0.7-1.3) Estimated GFR (Cockcroft-Gault) 61.0 BUN/Creatinine Ratio 9 (6-20) Glucose Level 181 mg/dL (70-99) Hemoglobin A1c 6.9 % (4.8-5.6) Calcium Level 8.0 mg/dL (8.5-10.1) Total Bilirubin 1.3 mg/dL (0.2-1.0) Aspartate Amino Transf (AST/SGOT) 16 U/L (15-37) Alanine Aminotransferase (ALT/SGPT) 12 U/L (16-63) Alkaline Phosphatase 75 U/L (46-116) Total Protein 6.8 g/dL (6.4-8.2) Albumin 2.8 g/dL (3.4-5.0) Albumin/Globulin Ratio 0.7 (1.0-1.7) Glucose (Fingerstick) 182 mg/dL (70-99) 238 mg/dL (70-99) 169 mg/dL (70-99) Test 04/12/20 20:39 04/13/20 04:45 Glucose (Fingerstick) 156 mg/dL (70-99) White Blood Count 7.3 x10^3/uL (4.0-11.0) Red Blood Count 4.43 x10^6/uL (4.30-5.70) Hemoglobin 12.9 g/dL (13.0-17.5) Hematocrit 39.1 % (39.0-53.0) Mean Corpuscular Volume 88 fL (79-100) Mean Corpuscular Hemoglobin 29 pg (25-35) Mean Corpuscular Hemoglobin Concent 33 g/dL (31-37) Red Cell Distribution Width 15.7 % (11.5-14.5) Platelet Count 193 x10^3/uL (140-400) Neutrophils (%) (Auto) 78 % (31-73) Lymphocytes (%) (Auto) 12 % (24-48) Monocytes (%) (Auto) 6 % (0-9) Eosinophils (%) (Auto) 3 % (0-3) Basophils (%) (Auto) 0 % (0-3) Neutrophils # (Auto) 5.7 x10^3/uL (1.8-7.7) Lymphocytes # (Auto) 0.9 x10^3/uL (1.0-4.8) Monocytes # (Auto) 0.5 x10^3/uL (0.0-1.1) Eosinophils # (Auto) 0.2 x10^3/uL (0.0-0.7) Basophils # (Auto) 0.0 x10^3/uL (0.0-0.2) Sodium Level 136 mmol/L (136-145) Potassium Level 3.5 mmol/L (3.5-5.1) Chloride Level 102 mmol/L (98-107) Carbon Dioxide Level 25 mmol/L (21-32) Anion Gap 9 (6-14) Blood Urea Nitrogen 7 mg/dL (8-26) Creatinine 1.1 mg/dL (0.7-1.3) Estimated GFR (Cockcroft-Gault) 80.5 BUN/Creatinine Ratio 6 (6-20) Glucose Level 120 mg/dL (70-99) Calcium Level 8.0 mg/dL (8.5-10.1) Total Bilirubin 1.2 mg/dL (0.2-1.0) Aspartate Amino Transf (AST/SGOT) 12 U/L (15-37) Alanine Aminotransferase (ALT/SGPT) 13 U/L (16-63) Alkaline Phosphatase 61 U/L (46-116) Total Protein 5.7 g/dL (6.4-8.2) Albumin 2.1 g/dL (3.4-5.0) Albumin/Globulin Ratio 0.6 (1.0-1.7) Laboratory Tests Test 04/12/20 10:55 04/12/20 16:53 04/12/20 20:39 04/13/20 04:45 Glucose (Fingerstick) 238 mg/dL (70-99) 169 mg/dL (70-99) 156 mg/dL (70-99) White Blood Count 7.3 x10^3/uL (4.0-11.0) Red Blood Count 4.43 x10^6/uL (4.30-5.70) Hemoglobin 12.9 g/dL (13.0-17.5) Hematocrit 39.1 % (39.0-53.0) Mean Corpuscular Volume 88 fL (79-100) Mean Corpuscular Hemoglobin 29 pg (25-35) Mean Corpuscular Hemoglobin Concent 33 g/dL (31-37) Red Cell Distribution Width 15.7 % (11.5-14.5) Platelet Count 193 x10^3/uL (140-400) Neutrophils (%) (Auto) 78 % (31-73) Lymphocytes (%) (Auto) 12 % (24-48) Monocytes (%) (Auto) 6 % (0-9) Eosinophils (%) (Auto) 3 % (0-3) Basophils (%) (Auto) 0 % (0-3) Neutrophils # (Auto) 5.7 x10^3/uL (1.8-7.7) Lymphocytes # (Auto) 0.9 x10^3/uL (1.0-4.8) Monocytes # (Auto) 0.5 x10^3/uL (0.0-1.1) Eosinophils # (Auto) 0.2 x10^3/uL (0.0-0.7) Basophils # (Auto) 0.0 x10^3/uL (0.0-0.2) Sodium Level 136 mmol/L (136-145) Potassium Level 3.5 mmol/L (3.5-5.1) Chloride Level 102 mmol/L (98-107) Carbon Dioxide Level 25 mmol/L (21-32) Anion Gap 9 (6-14) Blood Urea Nitrogen 7 mg/dL (8-26) Creatinine 1.1 mg/dL (0.7-1.3) Estimated GFR (Cockcroft-Gault) 80.5 BUN/Creatinine Ratio 6 (6-20) Glucose Level 120 mg/dL (70-99) Calcium Level 8.0 mg/dL (8.5-10.1) Total Bilirubin 1.2 mg/dL (0.2-1.0) Aspartate Amino Transf (AST/SGOT) 12 U/L (15-37) Alanine Aminotransferase (ALT/SGPT) 13 U/L (16-63) Alkaline Phosphatase 61 U/L (46-116) Total Protein 5.7 g/dL (6.4-8.2) Albumin 2.1 g/dL (3.4-5.0) Albumin/Globulin Ratio 0.6 (1.0-1.7) Assessment/Plan Status post laparoscopic right colon resection awaiting return of bowel function Urinary retention likely related to BPH Joseph catheter in place Justicifation of Admission Dx: Justifications for Admission: Justification of Admission Dx: Yes VIVIAN VAZQUEZ MD Apr 13, 2020 08:16
--- NOTE | 2020-04-13 09:03 | PDOC ---
PROGRESS NOTES Date of Service: DATE: 04/13/20 TIME: 09:02 Chief Complaint Chief Complaint ASSESSMENT AND PLAN: Postoperative day 2, right colon resection with a cecal polyp. diabetes plan advance his diet once bowel function returns, IV fluids, p.r.n. pain meds, wound care, resume home meds. await pathology report. DPOA DISCUSSION AND REVIEW 12 MIN A1C d/w rn Operative Note Date: 04/10/2020 at 1552 Preoperative diagnosis: Cecal polyp Postoperative diagnosis: Same Procedure: Robotic assisted laparoscopic right colon resection with primary anastomosis Surgeon: Salo Specimen: Terminal ileum and cecum Dictation: Patient is a 69-year-old gentleman who underwent colonoscopy was found to have a large polyp at the cecum was too big to be removed totally with the colonoscope. Biopsies were benign. History of Present Illness History of Present Illness CHIEF COMPLAINT: Postop day 2 cecal polyp resection and right colon resection with primary anastomosis. HISTORY OF PRESENT ILLNESS: pleasant middle-aged male who underwent a right colon resection 04/10 He apparently has a cecal polyp. The patient is now postop day 2 and we have been requested to see the patient for medical evaluation and treatment of comorbidities. PAST MEDICAL HISTORY: cecal polyp, hypertension, GERD, diabetes, hypothyroidism, viral syndrome and he is on acyclovir Vitals Vitals Vital Signs Date Time Temp Pulse Resp B/P (MAP) Pulse Ox O2 Delivery O2 Flow Rate FiO2 04/13/20 08:12 95 Room Air 04/13/20 07:00 98.6 100 18 155/83 (107) 98.6 04/13/20 00:20 2.0 Physical Exam General: Alert, Oriented X3, Cooperative, mild distress Heart: Regular rate, Normal S1 Lungs: Clear Abdomen: Normal bowel sounds, Soft, Other (Mild incisional tenderness wounds clean dry and intact) Extremities: No clubbing, No cyanosis, No edema Skin: No rashes Labs LABS Laboratory Tests Test 04/12/20 10:55 04/12/20 16:53 04/12/20 20:39 04/13/20 04:45 Glucose (Fingerstick) 238 mg/dL (70-99) 169 mg/dL (70-99) 156 mg/dL (70-99) White Blood Count 7.3 x10^3/uL (4.0-11.0) Red Blood Count 4.43 x10^6/uL (4.30-5.70) Hemoglobin 12.9 g/dL (13.0-17.5) Hematocrit 39.1 % (39.0-53.0) Mean Corpuscular Volume 88 fL (79-100) Mean Corpuscular Hemoglobin 29 pg (25-35) Mean Corpuscular Hemoglobin Concent 33 g/dL (31-37) Red Cell Distribution Width 15.7 % (11.5-14.5) Platelet Count 193 x10^3/uL (140-400) Neutrophils (%) (Auto) 78 % (31-73) Lymphocytes (%) (Auto) 12 % (24-48) Monocytes (%) (Auto) 6 % (0-9) Eosinophils (%) (Auto) 3 % (0-3) Basophils (%) (Auto) 0 % (0-3) Neutrophils # (Auto) 5.7 x10^3/uL (1.8-7.7) Lymphocytes # (Auto) 0.9 x10^3/uL (1.0-4.8) Monocytes # (Auto) 0.5 x10^3/uL (0.0-1.1) Eosinophils # (Auto) 0.2 x10^3/uL (0.0-0.7) Basophils # (Auto) 0.0 x10^3/uL (0.0-0.2) Sodium Level 136 mmol/L (136-145) Potassium Level 3.5 mmol/L (3.5-5.1) Chloride Level 102 mmol/L (98-107) Carbon Dioxide Level 25 mmol/L (21-32) Anion Gap 9 (6-14) Blood Urea Nitrogen 7 mg/dL (8-26) Creatinine 1.1 mg/dL (0.7-1.3) Estimated GFR (Cockcroft-Gault) 80.5 BUN/Creatinine Ratio 6 (6-20) Glucose Level 120 mg/dL (70-99) Calcium Level 8.0 mg/dL (8.5-10.1) Total Bilirubin 1.2 mg/dL (0.2-1.0) Aspartate Amino Transf (AST/SGOT) 12 U/L (15-37) Alanine Aminotransferase (ALT/SGPT) 13 U/L (16-63) Alkaline Phosphatase 61 U/L (46-116) Total Protein 5.7 g/dL (6.4-8.2) Albumin 2.1 g/dL (3.4-5.0) Albumin/Globulin Ratio 0.6 (1.0-1.7) Review of Systems Review of Systems CPR (cardiopulmonary resuscitation) Ventilator use Artificial nutrition (tube feeding) and artificial hydration (IV, or intravenous, fluids) Comfort care What is CPR? Cardiopulmonary resuscitation might restore your heartbeat if your heart stops or is in a life-threatening abnormal rhythm. It involves repeatedly pushing on the chest with force, while putting air into the lungs. This force has to be quite strong, and sometimes ribs are broken or a lung collapses. Electric shocks, known as defibrillation, and medicines might also be used as part of the process. The heart of a young, otherwise healthy person might resume beating normally after CPR. Often, CPR does not succeed in older adults who have multiple chronic illnesses or who are already frail. Using a ventilator as emergency treatment. Ventilators are machines that help you breathe. A tube connected to the ventilator is put through the throat into the trachea (windpipe) so the machine can force air into the lungs. Putting the tube down the throat is called intubation. Because the tube is uncomfortable, medicines are often used to keep you sedated while on a ventilator. If you are expected to remain on a ventilator for a long time, a doctor may perform a tracheotomy or "trach" (rhymes with "make"). During this bedside surgery, the tube is inserted directly into the trachea through a hole in the neck. For long- term help with breathing, a trach is more comfortable, and sedation is not needed. People using such a breathing tube are not able to speak without special help because exhaled air does not go past their vocal cords. Using artificial nutrition and hydration near the end of life. If you are not able to eat, you may be fed through a feeding tube that is threaded through the nose down to your stomach. If tube feeding is still needed for an extended p eriod, a feeding tube may be surgically inserted directly into your stomach. Hand feeding (sometimes called assisted oral feeding) is an alternative to tube feeding. This approach may have fewer risks, especially for people with dementia. If you are not able to drink, you may be provided with IV fluids. These are delivered through a thin plastic tube inserted into a vein. Comment Review of Relevant I have reviewed the following items irwin (where applicable) has been applied. Labs Laboratory Tests Test 04/11/20 11:47 04/11/20 16:49 04/11/20 20:55 04/12/20 04:24 Glucose (Fingerstick) 284 mg/dL (70-99) 250 mg/dL (70-99) 186 mg/dL (70-99) White Blood Count 8.5 x10^3/uL (4.0-11.0) Red Blood Count 5.08 x10^6/uL (4.30-5.70) Hemoglobin 14.8 g/dL (13.0-17.5) Hematocrit 44.8 % (39.0-53.0) Mean Corpuscular Volume 88 fL (79-100) Mean Corpuscular Hemoglobin 29 pg (25-35) Mean Corpuscular Hemoglobin Concent 33 g/dL (31-37) Red Cell Distribution Width 15.8 % (11.5-14.5) Platelet Count 217 x10^3/uL (140-400) Neutrophils (%) (Auto) 81 % (31-73) Lymphocytes (%) (Auto) 12 % (24-48) Monocytes (%) (Auto) 6 % (0-9) Eosinophils (%) (Auto) 1 % (0-3) Basophils (%) (Auto) 0 % (0-3) Neutrophils # (Auto) 6.9 x10^3/uL (1.8-7.7) Lymphocytes # (Auto) 1.0 x10^3/uL (1.0-4.8) Monocytes # (Auto) 0.5 x10^3/uL (0.0-1.1) Eosinophils # (Auto) 0.1 x10^3/uL (0.0-0.7) Basophils # (Auto) 0.0 x10^3/uL (0.0-0.2) Sodium Level 134 mmol/L (136-145) Potassium Level 3.7 mmol/L (3.5-5.1) Chloride Level 98 mmol/L (98-107) Carbon Dioxide Level 26 mmol/L (21-32) Anion Gap 10 (6-14) Blood Urea Nitrogen 12 mg/dL (8-26) Creatinine 1.4 mg/dL (0.7-1.3) Estimated GFR (Cockcroft-Gault) 61.0 BUN/Creatinine Ratio 9 (6-20) Glucose Level 181 mg/dL (70-99) Hemoglobin A1c 6.9 % (4.8-5.6) Calcium Level 8.0 mg/dL (8.5-10.1) Total Bilirubin 1.3 mg/dL (0.2-1.0) Aspartate Amino Transf (AST/SGOT) 16 U/L (15-37) Alanine Aminotransferase (ALT/SGPT) 12 U/L (16-63) Alkaline Phosphatase 75 U/L (46-116) Total Protein 6.8 g/dL (6.4-8.2) Albumin 2.8 g/dL (3.4-5.0) Albumin/Globulin Ratio 0.7 (1.0-1.7) Test 04/12/20 07:38 04/12/20 10:55 04/12/20 16:53 04/12/20 20:39 Glucose (Fingerstick) 182 mg/dL (70-99) 238 mg/dL (70-99) 169 mg/dL (70-99) 156 mg/dL (70-99) Test 04/13/20 04:45 White Blood Count 7.3 x10^3/uL (4.0-11.0) Red Blood Count 4.43 x10^6/uL (4.30-5.70) Hemoglobin 12.9 g/dL (13.0-17.5) Hematocrit 39.1 % (39.0-53.0) Mean Corpuscular Volume 88 fL (79-100) Mean Corpuscular Hemoglobin 29 pg (25-35) Mean Corpuscular Hemoglobin Concent 33 g/dL (31-37) Red Cell Distribution Width 15.7 % (11.5-14.5) Platelet Count 193 x10^3/uL (140-400) Neutrophils (%) (Auto) 78 % (31-73) Lymphocytes (%) (Auto) 12 % (24-48) Monocytes (%) (Auto) 6 % (0-9) Eosinophils (%) (Auto) 3 % (0-3) Basophils (%) (Auto) 0 % (0-3) Neutrophils # (Auto) 5.7 x10^3/uL (1.8-7.7) Lymphocytes # (Auto) 0.9 x10^3/uL (1.0-4.8) Monocytes # (Auto) 0.5 x10^3/uL (0.0-1.1) Eosinophils # (Auto) 0.2 x10^3/uL (0.0-0.7) Basophils # (Auto) 0.0 x10^3/uL (0.0-0.2) Sodium Level 136 mmol/L (136-145) Potassium Level 3.5 mmol/L (3.5-5.1) Chloride Level 102 mmol/L (98-107) Carbon Dioxide Level 25 mmol/L (21-32) Anion Gap 9 (6-14) Blood Urea Nitrogen 7 mg/dL (8-26) Creatinine 1.1 mg/dL (0.7-1.3) Estimated GFR (Cockcroft-Gault) 80.5 BUN/Creatinine Ratio 6 (6-20) Glucose Level 120 mg/dL (70-99) Calcium Level 8.0 mg/dL (8.5-10.1) Total Bilirubin 1.2 mg/dL (0.2-1.0) Aspartate Amino Transf (AST/SGOT) 12 U/L (15-37) Alanine Aminotransferase (ALT/SGPT) 13 U/L (16-63) Alkaline Phosphatase 61 U/L (46-116) Total Protein 5.7 g/dL (6.4-8.2) Albumin 2.1 g/dL (3.4-5.0) Albumin/Globulin Ratio 0.6 (1.0-1.7) Laboratory Tests Test 04/12/20 10:55 04/12/20 16:53 04/12/20 20:39 04/13/20 04:45 Glucose (Fingerstick) 238 mg/dL (70-99) 169 mg/dL (70-99) 156 mg/dL (70-99) White Blood Count 7.3 x10^3/uL (4.0-11.0) Red Blood Count 4.43 x10^6/uL (4.30-5.70) Hemoglobin 12.9 g/dL (13.0-17.5) Hematocrit 39.1 % (39.0-53.0) Mean Corpuscular Volume 88 fL (79-100) Mean Corpuscular Hemoglobin 29 pg (25-35) Mean Corpuscular Hemoglobin Concent 33 g/dL (31-37) Red Cell Distribution Width 15.7 % (11.5-14.5) Platelet Count 193 x10^3/uL (140-400) Neutrophils (%) (Auto) 78 % (31-73) Lymphocytes (%) (Auto) 12 % (24-48) Monocytes (%) (Auto) 6 % (0-9) Eosinophils (%) (Auto) 3 % (0-3) Basophils (%) (Auto) 0 % (0-3) Neutrophils # (Auto) 5.7 x10^3/uL (1.8-7.7) Lymphocytes # (Auto) 0.9 x10^3/uL (1.0-4.8) Monocytes # (Auto) 0.5 x10^3/uL (0.0-1.1) Eosinophils # (Auto) 0.2 x10^3/uL (0.0-0.7) Basophils # (Auto) 0.0 x10^3/uL (0.0-0.2) Sodium Level 136 mmol/L (136-145) Potassium Level 3.5 mmol/L (3.5-5.1) Chloride Level 102 mmol/L (98-107) Carbon Dioxide Level 25 mmol/L (21-32) Anion Gap 9 (6-14) Blood Urea Nitrogen 7 mg/dL (8-26) Creatinine 1.1 mg/dL (0.7-1.3) Estimated GFR (Cockcroft-Gault) 80.5 BUN/Creatinine Ratio 6 (6-20) Glucose Level 120 mg/dL (70-99) Calcium Level 8.0 mg/dL (8.5-10.1) Total Bilirubin 1.2 mg/dL (0.2-1.0) Aspartate Amino Transf (AST/SGOT) 12 U/L (15-37) Alanine Aminotransferase (ALT/SGPT) 13 U/L (16-63) Alkaline Phosphatase 61 U/L (46-116) Total Protein 5.7 g/dL (6.4-8.2) Albumin 2.1 g/dL (3.4-5.0) Albumin/Globulin Ratio 0.6 (1.0-1.7) Medications Current Medications Indocyanine Green (Ic Green) 7.5 mg ONCE ONCE IVP ; Start 04/10/20 at 06:00; Stop 04/10/20 at 06:01; Status DC Ondansetron HCl (Zofran) 4 mg PRN Q6HRS PRN IV NAUSEA/VOMITING; Start 04/10/20 at 07:00; Stop 04/11/20 at 06:59; Status DC Fentanyl Citrate (Fentanyl 2ml Vial) 25 mcg PRN Q5MIN PRN IV MILD PAIN 1-3; Start 04/10/20 at 07:00; Stop 04/11/20 at 06:59; Status DC Fentanyl Citrate (Fentanyl 2ml Vial) 50 mcg PRN Q5MIN PRN IV MODERATE TO SEVERE PAIN Last administered on 04/10/20at 16:43; Start 04/10/20 at 07:00; Stop 04/11/20 at 06:59; Status DC Morphine Sulfate (Morphine Sulfate) 1 mg PRN Q10MIN PRN IV SEVERE PAIN 7-10 Last administered on 04/10/20at 17:12; Start 04/10/20 at 07:00; Stop 04/11/20 at 06:59; Status DC Ringer's Solution 1,000 ml @ 30 mls/hr Q24H IV Last administered on 04/10/20at 11:54; Start 04/10/20 at 07:00; Stop 04/10/20 at 18:59; Status DC Hydromorphone HCl (Dilaudid) 0.5 mg PRN Q10MIN PRN IV SEV PAIN, Second choice Last administered on 04/10/20at 17:49; Start 04/10/20 at 07:00; Stop 04/11/20 at 06:59; Status DC Prochlorperazine Edisylate (Compazine) 5 mg PACU PRN PRN IV NAUSEA, MRX1 Last administered on 04/10/20at 17:58; Start 04/10/20 at 07:00; Stop 04/11/20 at 06:59; Status DC Acetaminophen (Tylenol) 1,000 mg OC PROC PRN PO PRE-OP Last administered on 04/10/20at 11:55; Start 04/10/20 at 06:00; Stop 04/10/20 at 18:00; Status DC Cefazolin Sodium/ Dextrose 50 ml @ 100 mls/hr 1X PREOP PRN IV PRIOR TO PROCEDURE Last administered on 04/10/20at 12:53; Start 04/10/20 at 06:00; Stop 04/10/20 at 18:00; Status DC Propofol (Diprivan) 200 mg STK-MED ONCE IV ; Start 04/10/20 at 10:58; Stop 04/10/20 at 10:58; Status DC Lidocaine HCl (Lidocaine Pf 2% Vial) 5 ml STK-MED ONCE .ROUTE ; Start 04/10/20 at 10:58; Stop 04/10/20 at 10:58; Status DC Dexamethasone Sodium Phosphate (Decadron) 20 mg STK-MED ONCE .ROUTE ; Start 04/10/20 at 10:58; Stop 04/10/20 at 10:59; Status DC Ondansetron HCl (Zofran) 4 mg STK-MED ONCE .ROUTE ; Start 04/10/20 at 10:58; Stop 04/10/20 at 10:59; Status DC Famotidine (Pepcid Vial) 20 mg STK-MED ONCE .ROUTE ; Start 04/10/20 at 10:58; Stop 04/10/20 at 10:59; Status DC Ephedrine Sulfate (ePHEDrine PF IN SALINE SYRINGE) 50 mg STK-MED ONCE IV ; Start 04/10/20 at 10:58; Stop 04/10/20 at 10:59; Status DC Glycopyrrolate (Robinul) 1 mg STK-MED ONCE .ROUTE ; Start 04/10/20 at 10:59; Stop 04/10/20 at 10:59; Status DC Rocuronium [place] (Zemuron) 50 mg STK-MED ONCE .ROUTE ; Start 04/10/20 at 10:5 9; Stop 04/10/20 at 10:59; Status DC Fentanyl Citrate (Fentanyl 2ml Vial) 100 mcg STK-MED ONCE .ROUTE ; Start 04/10/20 at 11:00; Stop 04/10/20 at 11:00; Status DC Insulin Human Lispro (HumaLOG VIAL for OP,RR ONLY) 0-10 units PRN Q1HR PRN SQ PER PROTOCOL Last administered on 04/10/20at 12:02; Start 04/10/20 at 12:00; Stop 04/10/20 at 21:53; Status DC Bupivacaine HCl/ Epinephrine Bitart (Sensorcaine-Epi 0.25%-1:[id number] Mpf) 30 ml STK-MED ONCE .ROUTE Last administered on 04/10/20at 13:22; Start 04/10/20 at 1 2:35; Stop 04/10/20 at 12:35; Status DC Midazolam HCl (Versed) 2 mg STK-MED ONCE .ROUTE ; Start 04/10/20 at 12:37; Stop 04/10/20 at 12:37; Status DC Fentanyl Citrate (Fentanyl 2ml Vial) 100 mcg STK-MED ONCE .ROUTE ; Start 04/10/20 at 13:21; Stop 04/10/20 at 13:21; Status DC Sevoflurane (Ultane) 90 ml STK-MED ONCE IH ; Start 04/10/20 at 13:42; Stop 04/10/20 at 13:42; Status DC Neostigmine [place] (Neostigmine Methylsulfate) 5 mg STK-MED ONCE .ROUTE ; Start 04/10/20 at 13:42; Stop 04/10/20 at 13:42; Status DC Cefoxitin Sodium (Mefoxin) 1 gm Q8H IVP Last administered on 04/11/20at 14:11; Start 04/10/20 at 21:00; Stop 04/11/20 at 13:01; Status DC Sodium Chloride (Normal Saline Flush) 3 ml QSHIFT PRN IV AFTER MEDS AND BLOOD DRAWS; Start 04/10/20 at 16:00 Morphine Sulfate (Morphine Sulfate) 2 mg PRN Q3HRS PRN IV PAIN Last administered on 04/10/20at 21:40; Start 04/10/20 at 16:00 Oxycodone/ Acetaminophen (Percocet 5/325) 1 tab PRN Q4HRS PRN PO MILD PAIN, 1ST CHOICE Last administered on 04/10/20at 19:40; Start 04/10/20 at 16:00 Oxycodone/ Acetaminophen (Percocet 5/325) 2 tab PRN Q4HRS PRN PO MODERATE PAIN, SEVERE PAIN Last administered on 04/13/20at 08:12; Start 04/10/20 at 16:00 Ketorolac Tromethamine (Toradol 15mg Vial) 15 mg Q6HRS IV Last administered on 04/12/20at 12:13; Start 04/10/20 at 18:00; Stop 04/12/20 at 17:59; Status DC Ondansetron HCl (Zofran) 4 mg PRN Q6HRS PRN IV NAUSEA, 1ST CHOICE; Start 04/10/20 at 16:00 Dextrose/Lactated Ringer's 1,000 ml @ 75 mls/hr [id number] IV Last administered on 04/11/20at 05:32; Start 04/10/20 at 15:59 Fentanyl Citrate (Fentanyl 2ml Vial) 100 mcg STK-MED ONCE .ROUTE ; Start 04/10/20 at 16:28; Stop 04/10/20 at 16:28; Status DC Ketorolac Tromethamine (Toradol 30mg Vial) 30 mg STK-MED ONCE .ROUTE ; Start 04/10/20 at 16:57; Stop 04/10/20 at 16:57; Status DC Ketorolac Tromethamine (Toradol 30mg Vial) 30 mg 1X ONCE IVP Last administered on 04/10/20at 17:04; Start 04/10/20 at 17:00; Stop 04/10/20 at 17:15; Status DC Hydromorphone HCl (Dilaudid) 2 mg STK-MED ONCE .ROUTE ; Start 04/10/20 at 17:14; Stop 04/10/20 at 17:15; Status DC Prochlorperazine Edisylate (Compazine) 10 mg STK-MED ONCE .ROUTE ; Start 04/10/20 at 17:57; Stop 04/10/20 at 17:57; Status DC Insulin Human Lispro (HumaLOG) 0-7 UNITS TIDWMEALS SQ Last administered on 04/12/20at 17:15; Start 04/11/20 at 08:00 Dextrose (Dextrose 50%-Water Syringe) 12.5 gm PRN Q15MIN PRN IV SEE COMMENTS; Start 04/10/20 at 22:00 Non-Formulary Medication (Insulin Glargine,Hum.rec.anlog (Lantus Solostar)) 18 unit HS SQ ; Start 04/11/20 at 21:00; Status UNV Insulin Human Lispro (HumaLOG) 6 units 1X ONCE SQ Last administered on 04/10/20at 23:05; Start 04/10/20 at 22:00; Stop 04/10/20 at 22:01; Status DC Insulin Glargine (Lantus Syringe) 18 unit QHS SQ Last administered on 04/12/20at 21:00; Start 04/10/20 at 22:30 Tamsulosin HCl (Flomax) 0.4 mg DAILY PO Last administered on 04/13/20at 08:11; Start 04/12/20 at 09:00 Active Scripts Active Reported Children's Aspirin (Aspirin) 81 Mg Tab.chew 1 Tab PO DAILY 30 Days Humalog (Insulin Lispro) 100 Unit/1 Ml Insuln.pen SQ 8UNITS AC TID Centrum Silver Tablet (Multivits-Min/Fa/Lycopene/Lut) 1 Each Tablet 1 Each PO DAILY Metformin Hcl 500 Mg Tablet 500 Mg PO BID Levothyroxine Sodium 150 Mcg Tablet 150 Mcg PO DAILY Gulshan 5-20 Mg Tablet (Amlodipine Bes/Olmesartan Med) 1 Each Tablet 1 Each PO DAILY Fluvastatin Sodium 40 Mg Capsule 40 Mg PO HS Acyclovir 400 Mg Tablet 400 Mg PO DAILY Omeprazole 20 Mg Capsule.dr 20 Mg PO DAILY Lantus Solostar (Insulin Glargine,Hum.rec.anlog) 100 Unit/1 Ml Insuln.pen 18 Unit SQ HS Vitals/I & O Vital Sign - Last 24 Hours 04/12/20 04/12/20 04/12/20 04/12/20 11:00 15:00 19:00 20:00 Temp 98.8 97.8 99.3 98.8 97.8 99.3 Pulse 113 106 105 Resp 18 16 18 B/P (MAP) 152/79 (103) 150/83 (105) 128/75 (92) Pulse Ox 91 98 97 O2 Delivery Room Air Room Air Room Air Nasal Cannula O2 Flow Rate 2.0 04/12/20 04/13/20 04/13/20 04/13/20 23:00 00:20 03:00 07:00 Temp 99.6 98.6 98.6 99.6 98.6 98.6 Pulse 102 107 100 Resp 18 20 18 18 B/P (MAP) 130/71 (90) 130/76 (94) 155/83 (107) Pulse Ox 97 95 94 O2 Delivery Room Air Nasal Cannula Room Air Room Air O2 Flow Rate 2.0 04/13/20 08:12 Pulse Ox 95 O2 Delivery Room Air Intake and Output 04/12/20 04/12/20 04/13/20 15:00 23:00 07:00 Intake Total 350 ml Output Total 950 ml 650 ml Balance -950 ml -300 ml Justicifation of Admission Dx: Justifications for Admission: Justification of Admission Dx: Yes VIVIAN KHALIL MD Apr 13, 2020 09:03
--- NOTE | 2020-04-13 09:36 | NUR ---
[facility] following. Discussed with RN, pt from home, room air, clear liquid diet, PPN. Awaiting return of bowel function - pt passing gas. [facility] will continue to follow. Addendum: 04/13/20 at 0945 by ELIAN SCHNEIDER CORRECTION pt is NOT on PPN.
[2020-04-13 11:00] VITALS: BP 145/80
[2020-04-13 15:00] VITALS: BP 132/80
[2020-04-13] MEDS: MORPHINE SULFATE 2 MG/ML VIAL. IV PRN (18:56)
[2020-04-13 19:00] VITALS: BP 149/83
[2020-04-13] MEDS: INSULIN GLARGINE SYRINGE. SQ SCH (21:49)
[2020-04-13 23:00] VITALS: BP 147/74
[2020-04-13] MEDS: IV DEXTROSE 5%-LACT RINGERS 1,000 ML IV SCH (23:59)
[2020-04-14] MEDS: oxyCODONE/APAP 5/325 1 TAB TABLET PO PRN ×4 (02:55→22:52)
[2020-04-14 03:00] VITALS: BP 150/74
[2020-04-14 07:00] VITALS: BP 147/87
[2020-04-14] MEDS: INSULIN LISPRO 300 UNITS/3 ML VIAL. SQ SCH ×3 (08:00→17:32)
[2020-04-14 08:13] LABS: BASO # 0.1 x10^3/uL (0.0-0.2); BASO % 1 % (0-3); EOS # 0.4 x10^3/uL (0.0-0.7); EOS % 6 % (0-3); HEMATOCRIT 38.9 % (39.0-53.0); LYMPH # 0.9 x10^3/uL (1.0-4.8); LYMPH % 15 % (24-48); MEAN CORPUSCULAR HEMOGLOBIN 29 pg (25-35); MEAN CORPUSCULAR HGB CONC 33 g/dL (31-37); MEAN CORPUSCULAR VOLUME 88 fL (79-100); MONO # 0.6 x10^3/uL (0.0-1.1); MONO % 9 % (0-9); NEUT # 4.5 x10^3/uL (1.8-7.7); NEUT % 70 % (31-73); PLATELET COUNT 216 x10^3/uL (140-400); RED BLOOD COUNT 4.43 x10^6/uL (4.30-5.70); RED CELL DISTRIBUTION WIDTH 15.7 % (11.5-14.5); WHITE BLOOD COUNT 6.5 x10^3/uL (4.0-11.0)
[2020-04-14 08:39] LABS: ALBUMIN 2.1 g/dL (3.4-5.0); ALBUMIN/GLOBULIN RATIO 0.5 (1.0-1.7); CALCIUM 7.4 mg/dL (8.5-10.1); CREATININE 1.1 mg/dL (0.7-1.3); GFR 80.5; POTASSIUM 3.3 mmol/L (3.5-5.1); TOTAL BILIRUBIN 1.1 mg/dL (0.2-1.0); TOTAL PROTEIN 6.1 g/dL (6.4-8.2)
[2020-04-14] MEDS: TAMSULOSIN 0.4 MG CAP.ER.24H. PO SCH (08:45)
--- NOTE | 2020-04-14 10:19 | PDOC ---
PROGRESS NOTES Date of Service DATE: 04/14/20 TIME: 10:18 Subjective Subjective Feels well, walking in the hallway, no flatus or stool Objective Objective Vital Signs Date Time Temp Pulse Resp B/P (MAP) Pulse Ox O2 Delivery O2 Flow Rate FiO2 04/14/20 09:43 94 Room Air 04/14/20 07:00 98.5 107 19 147/87 (107) 98.5 04/13/20 00:20 2.0 Intake and Output 04/14/20 07:00 Intake Total 1680 ml Output Total 1450 ml Balance 230 ml Intake Oral 1680 ml Output Urine Total 1450 ml Physical Exam Abdomen: Soft Assessment Assessment S/P robotic R colectomy Plan Plan of Care Await return of bowel function Comment Review of Relevant I have reviewed the following items irwin (where applicable) has been applied. Labs Laboratory Tests Test 04/12/20 10:55 04/12/20 16:53 04/12/20 20:39 04/13/20 04:45 Glucose (Fingerstick) 238 mg/dL (70-99) 169 mg/dL (70-99) 156 mg/dL (70-99) White Blood Count 7.3 x10^3/uL (4.0-11.0) Red Blood Count 4.43 x10^6/uL (4.30-5.70) Hemoglobin 12.9 g/dL (13.0-17.5) Hematocrit 39.1 % (39.0-53.0) Mean Corpuscular Volume 88 fL (79-100) Mean Corpuscular Hemoglobin 29 pg (25-35) Mean Corpuscular Hemoglobin Concent 33 g/dL (31-37) Red Cell Distribution Width 15.7 % (11.5-14.5) Platelet Count 193 x10^3/uL (140-400) Neutrophils (%) (Auto) 78 % (31-73) Lymphocytes (%) (Auto) 12 % (24-48) Monocytes (%) (Auto) 6 % (0-9) Eosinophils (%) (Auto) 3 % (0-3) Basophils (%) (Auto) 0 % (0-3) Neutrophils # (Auto) 5.7 x10^3/uL (1.8-7.7) Lymphocytes # (Auto) 0.9 x10^3/uL (1.0-4.8) Monocytes # (Auto) 0.5 x10^3/uL (0.0-1.1) Eosinophils # (Auto) 0.2 x10^3/uL (0.0-0.7) Basophils # (Auto) 0.0 x10^3/uL (0.0-0.2) Sodium Level 136 mmol/L (136-145) Potassium Level 3.5 mmol/L (3.5-5.1) Chloride Level 102 mmol/L (98-107) Carbon Dioxide Level 25 mmol/L (21-32) Anion Gap 9 (6-14) Blood Urea Nitrogen 7 mg/dL (8-26) Creatinine 1.1 mg/dL (0.7-1.3) Estimated GFR (Cockcroft-Gault) 80.5 BUN/Creatinine Ratio 6 (6-20) Glucose Level 120 mg/dL (70-99) Calcium Level 8.0 mg/dL (8.5-10.1) Total Bilirubin 1.2 mg/dL (0.2-1.0) Aspartate Amino Transf (AST/SGOT) 12 U/L (15-37) Alanine Aminotransferase (ALT/SGPT) 13 U/L (16-63) Alkaline Phosphatase 61 U/L (46-116) Total Protein 5.7 g/dL (6.4-8.2) Albumin 2.1 g/dL (3.4-5.0) Albumin/Globulin Ratio 0.6 (1.0-1.7) Test 04/13/20 16:40 04/13/20 20:49 04/14/20 07:10 04/14/20 08:00 Glucose (Fingerstick) 190 mg/dL (70-99) 196 mg/dL (70-99) 170 mg/dL (70-99) White Blood Count 6.5 x10^3/uL (4.0-11.0) Red Blood Count 4.43 x10^6/uL (4.30-5.70) Hemoglobin 13.0 g/dL (13.0-17.5) Hematocrit 38.9 % (39.0-53.0) Mean Corpuscular Volume 88 fL (79-100) Mean Corpuscular Hemoglobin 29 pg (25-35) Mean Corpuscular Hemoglobin Concent 33 g/dL (31-37) Red Cell Distribution Width 15.7 % (11.5-14.5) Platelet Count 216 x10^3/uL (140-400) Neutrophils (%) (Auto) 70 % (31-73) Lymphocytes (%) (Auto) 15 % (24-48) Monocytes (%) (Auto) 9 % (0-9) Eosinophils (%) (Auto) 6 % (0-3) Basophils (%) (Auto) 1 % (0-3) Neutrophils # (Auto) 4.5 x10^3/uL (1.8-7.7) Lymphocytes # (Auto) 0.9 x10^3/uL (1.0-4.8) Monocytes # (Auto) 0.6 x10^3/uL (0.0-1.1) Eosinophils # (Auto) 0.4 x10^3/uL (0.0-0.7) Basophils # (Auto) 0.1 x10^3/uL (0.0-0.2) Sodium Level 135 mmol/L (136-145) Potassium Level 3.3 mmol/L (3.5-5.1) Chloride Level 100 mmol/L (98-107) Carbon Dioxide Level 26 mmol/L (21-32) Anion Gap 9 (6-14) Blood Urea Nitrogen 8 mg/dL (8-26) Creatinine 1.1 mg/dL (0.7-1.3) Estimated GFR (Cockcroft-Gault) 80.5 BUN/Creatinine Ratio 7 (6-20) Glucose Level 136 mg/dL (70-99) Calcium Level 7.4 mg/dL (8.5-10.1) Total Bilirubin 1.1 mg/dL (0.2-1.0) Aspartate Amino Transf (AST/SGOT) 14 U/L (15-37) Alanine Aminotransferase (ALT/SGPT) 9 U/L (16-63) Alkaline Phosphatase 57 U/L (46-116) Total Protein 6.1 g/dL (6.4-8.2) Albumin 2.1 g/dL (3.4-5.0) Albumin/Globulin Ratio 0.5 (1.0-1.7) Laboratory Tests Test 04/13/20 16:40 04/13/20 20:49 04/14/20 07:10 04/14/20 08:00 Glucose (Fingerstick) 190 mg/dL (70-99) 196 mg/dL (70-99) 170 mg/dL (70-99) White Blood Count 6.5 x10^3/uL (4.0-11.0) Red Blood Count 4.43 x10^6/uL (4.30-5.70) Hemoglobin 13.0 g/dL (13.0-17.5) Hematocrit 38.9 % (39.0-53.0) Mean Corpuscular Volume 88 fL (79-100) Mean Corpuscular Hemoglobin 29 pg (25-35) Mean Corpuscular Hemoglobin Concent 33 g/dL (31-37) Red Cell Distribution Width 15.7 % (11.5-14.5) Platelet Count 216 x10^3/uL (140-400) Neutrophils (%) (Auto) 70 % (31-73) Lymphocytes (%) (Auto) 15 % (24-48) Monocytes (%) (Auto) 9 % (0-9) Eosinophils (%) (Auto) 6 % (0-3) Basophils (%) (Auto) 1 % (0-3) Neutrophils # (Auto) 4.5 x10^3/uL (1.8-7.7) Lymphocytes # (Auto) 0.9 x10^3/uL (1.0-4.8) Monocytes # (Auto) 0.6 x10^3/uL (0.0-1.1) Eosinophils # (Auto) 0.4 x10^3/uL (0.0-0.7) Basophils # (Auto) 0.1 x10^3/uL (0.0-0.2) Sodium Level 135 mmol/L (136-145) Potassium Level 3.3 mmol/L (3.5-5.1) Chloride Level 100 mmol/L (98-107) Carbon Dioxide Level 26 mmol/L (21-32) Anion Gap 9 (6-14) Blood Urea Nitrogen 8 mg/dL (8-26) Creatinine 1.1 mg/dL (0.7-1.3) Estimated GFR (Cockcroft-Gault) 80.5 BUN/Creatinine Ratio 7 (6-20) Glucose Level 136 mg/dL (70-99) Calcium Level 7.4 mg/dL (8.5-10.1) Total Bilirubin 1.1 mg/dL (0.2-1.0) Aspartate Amino Transf (AST/SGOT) 14 U/L (15-37) Alanine Aminotransferase (ALT/SGPT) 9 U/L (16-63) Alkaline Phosphatase 57 U/L (46-116) Total Protein 6.1 g/dL (6.4-8.2) Albumin 2.1 g/dL (3.4-5.0) Albumin/Globulin Ratio 0.5 (1.0-1.7) Medications Current Medications Indocyanine Green (Ic Green) 7.5 mg ONCE ONCE IVP ; Start 04/10/20 at 06:00; Stop 04/10/20 at 06:01; Status DC Ondansetron HCl (Zofran) 4 mg PRN Q6HRS PRN IV NAUSEA/VOMITING; Start 04/10/20 at 07:00; Stop 04/11/20 at 06:59; Status DC Fentanyl Citrate (Fentanyl 2ml Vial) 25 mcg PRN Q5MIN PRN IV MILD PAIN 1-3; Start 04/10/20 at 07:00; Stop 04/11/20 at 06:59; Status DC Fentanyl Citrate (Fentanyl 2ml Vial) 50 mcg PRN Q5MIN PRN IV MODERATE TO SEVERE PAIN Last administered on 04/10/20at 16:43; Start 04/10/20 at 07:00; Stop 04/11/20 at 06:59; Status DC Morphine Sulfate (Morphine Sulfate) 1 mg PRN Q10MIN PRN IV SEVERE PAIN 7-10 Last administered on 04/10/20at 17:12; Start 04/10/20 at 07:00; Stop 04/11/20 at 06:59; Status DC Ringer's Solution 1,000 ml @ 30 mls/hr Q24H IV Last administered on 04/10/20at 11:54; Start 04/10/20 at 07:00; Stop 04/10/20 at 18:59; Status DC Hydromorphone HCl (Dilaudid) 0.5 mg PRN Q10MIN PRN IV SEV PAIN, Second choice Last administered on 04/10/20at 17:49; Start 04/10/20 at 07:00; Stop 04/11/20 at 06:59; Status DC Prochlorperazine Edisylate (Compazine) 5 mg PACU PRN PRN IV NAUSEA, MRX1 Last administered on 04/10/20at 17:58; Start 04/10/20 at 07:00; Stop 04/11/20 at 06:59; Status DC Acetaminophen (Tylenol) 1,000 mg OC PROC PRN PO PRE-OP Last administered on 04/10/20at 11:55; Start 04/10/20 at 06:00; Stop 04/10/20 at 18:00; Status DC Cefazolin Sodium/ Dextrose 50 ml @ 100 mls/hr 1X PREOP PRN IV PRIOR TO PROCEDURE Last administered on 04/10/20at 12:53; Start 04/10/20 at 06:00; Stop 04/10/20 at 18:00; Status DC Propofol (Diprivan) 200 mg STK-MED ONCE IV ; Start 04/10/20 at 10:58; Stop 04/10/20 at 10:58; Status DC Lidocaine HCl (Lidocaine Pf 2% Vial) 5 ml STK-MED ONCE .ROUTE ; Start 04/10/20 at 10:58; Stop 04/10/20 at 10:58; Status DC Dexamethasone Sodium Phosphate (Decadron) 20 mg STK-MED ONCE .ROUTE ; Start 04/10/20 at 10:58; Stop 04/10/20 at 10:59; Status DC Ondansetron HCl (Zofran) 4 mg STK-MED ONCE .ROUTE ; Start 04/10/20 at 10:58; Stop 04/10/20 at 10:59; Status DC Famotidine (Pepcid Vial) 20 mg STK-MED ONCE .ROUTE ; Start 04/10/20 at 10:58; Stop 04/10/20 at 10:59; Status DC Ephedrine Sulfate (ePHEDrine PF IN SALINE SYRINGE) 50 mg STK-MED ONCE IV ; Start 04/10/20 at 10:58; Stop 04/10/20 at 10:59; Status DC Glycopyrrolate (Robinul) 1 mg STK-MED ONCE .ROUTE ; Start 04/10/20 at 10:59; Stop 04/10/20 at 10:59; Status DC Rocuronium Kamrar (Zemuron) 50 mg STK-MED ONCE .ROUTE ; Start 04/10/20 at 10:59; Stop 04/10/20 at 10:59; Status DC Fentanyl Citrate (Fentanyl 2ml Vial) 100 mcg STK-MED ONCE .ROUTE ; Start 04/10/20 at 11:00; Stop 04/10/20 at 11:00; Status DC Insulin Human Lispro (HumaLOG VIAL for OP,RR ONLY) 0-10 units PRN Q1HR PRN SQ PER PROTOCOL Last administered on 04/10/20at 12:02; Start 04/10/20 at 12:00; Stop 04/10/20 at 21:53; Status DC Bupivacaine HCl/ Epinephrine Bitart (Sensorcaine-Epi 0.25%-1:955223 Mpf) 30 ml STK-MED ONCE .ROUTE Last administered on 04/10/20at 13:22; Start 04/10/20 at 12:35; Stop 04/10/20 at 12:35; Status DC Midazolam HCl (Versed) 2 mg STK-MED ONCE .ROUTE ; Start 04/10/20 at 12:37; Stop 04/10/20 at 12:37; Status DC Fentanyl Citrate (Fentanyl 2ml Vial) 100 mcg STK-MED ONCE .ROUTE ; Start 04/10/20 at 13:21; Stop 04/10/20 at 13:21; Status DC Sevoflurane (Ultane) 90 ml STK-MED ONCE IH ; Start 04/10/20 at 13:42; Stop 04/10/20 at 13:42; Status DC Neostigmine Kamrar (Neostigmine Methylsulfate) 5 mg STK-MED ONCE .ROUTE ; Sta rt 04/10/20 at 13:42; Stop 04/10/20 at 13:42; Status DC Cefoxitin Sodium (Mefoxin) 1 gm Q8H IVP Last administered on 04/11/20at 14:11; Start 04/10/20 at 21:00; Stop 04/11/20 at 13:01; Status DC Sodium Chloride (Normal Saline Flush) 3 ml QSHIFT PRN IV AFTER MEDS AND BLOOD DRAWS; Start 04/10/20 at 16:00 Morphine Sulfate (Morphine Sulfate) 2 mg PRN Q3HRS PRN IV PAIN Last administer ed on 04/13/20at 18:56; Start 04/10/20 at 16:00 Oxycodone/ Acetaminophen (Percocet 5/325) 1 tab PRN Q4HRS PRN PO MILD PAIN, 1ST CHOICE Last administered on 04/13/20at 18:10; Start 04/10/20 at 16:00 Oxycodone/ Acetaminophen (Percocet 5/325) 2 tab PRN Q4HRS PRN PO MODERATE PAIN, SEVERE PAIN Last administered on 04/14/20at 09:43; Start 04/10/20 at 16:00 Ketorolac Tromethamine (Toradol 15mg Vial) 15 mg Q6HRS IV Last administered on 04/12/20at 12:13; Start 04/10/20 at 18:00; Stop 04/12/20 at 17:59; Status DC Ondansetron HCl (Zofran) 4 mg PRN Q6HRS PRN IV NAUSEA, 1ST CHOICE; Start 04/10/20 at 16:00 Dextrose/Lactated Ringer's 1,000 ml @ 75 mls/hr [id number] IV Last administered on 04/11/20at 05:32; Start 04/10/20 at 15:59 Fentanyl Citrate (Fentanyl 2ml Vial) 100 mcg STK-MED ONCE .ROUTE ; Start 04/10/20 at 16:28; Stop 04/10/20 at 16:28; Status DC Ketorolac Tromethamine (Toradol 30mg Vial) 30 mg STK-MED ONCE .ROUTE ; Start 04/10/20 at 16:57; Stop 04/10/20 at 16:57; Status DC Ketorolac Tromethamine (Toradol 30mg Vial) 30 mg 1X ONCE IVP Last administered on 04/10/20at 17:04; Start 04/10/20 at 17:00; Stop 04/10/20 at 17:15; Status DC Hydromorphone HCl (Dilaudid) 2 mg STK-MED ONCE .ROUTE ; Start 04/10/20 at 17:14; Stop 04/10/20 at 17:15; Status DC Prochlorperazine Edisylate (Compazine) 10 mg STK-MED ONCE .ROUTE ; Start 04/10/20 at 17:57; Stop 04/10/20 at 17:57; Status DC Insulin Human Lispro (HumaLOG) 0-7 UNITS TIDWMEALS SQ Last administered on 04/12/20at 17:15; Start 04/11/20 at 08:00 Dextrose (Dextrose 50%-Water Syringe) 12.5 gm PRN Q15MIN PRN IV SEE COMMENTS; Start 04/10/20 at 22:00 Non-Formulary Medication (Insulin Glargine,Hum.rec.anlog (Lantus Solostar)) 18 unit HS SQ ; Start 04/11/20 at 21:00; Status UNV Insulin Human Lispro (HumaLOG) 6 units 1X ONCE SQ Last administered on 04/10/20at 23:05; Start 04/10/20 at 22:00; Stop 04/10/20 at 22:01; Status DC Insulin Glargine (Lantus Syringe) 18 unit QHS SQ Last administered on 04/13/20at 21:49; Start 04/10/20 at 22:30 Tamsulosin HCl (Flomax) 0.4 mg DAILY PO Last administered on 04/14/20at 08:45; Start 04/12/20 at 09:00 Active Scripts Active Reported Children's Aspirin (Aspirin) 81 Mg Tab.chew 1 Tab PO DAILY 30 Days Humalog (Insulin Lispro) 100 Unit/1 Ml Insuln.pen SQ 8UNITS AC TID Centrum Silver Tablet (Multivits-Min/Fa/Lycopene/Lut) 1 Each Tablet 1 Each PO DAILY Metformin Hcl 500 Mg Tablet 500 Mg PO BID Levothyroxine Sodium 150 Mcg Tablet 150 Mcg PO DAILY Gulshan 5-20 Mg Tablet (Amlodipine Bes/Olmesartan Med) 1 Each Tablet 1 Each PO DAILY Fluvastatin Sodium 40 Mg Capsule 40 Mg PO HS Acyclovir 400 Mg Tablet 400 Mg PO DAILY Omeprazole 20 Mg Capsule.dr 20 Mg PO DAILY Lantus Solostar (Insulin Glargine,Hum.rec.anlog) 100 Unit/1 Ml Insuln.pen 18 Unit SQ HS Vitals/I & O Vital Sign - Last 24 Hours 04/13/20 04/13/20 04/13/20 04/13/20 11:00 15:00 18:10 18:56 Temp 98.2 98.4 98.2 98.4 Pulse 112 98 Resp 18 18 B/P (MAP) 145/80 (101) 132/80 (97) Pulse Ox 93 94 94 94 O2 Delivery Room Air Room Air Room Air Room Air 04/13/20 04/13/20 04/13/20 04/13/20 19:00 19:10 19:26 20:30 Temp 99.1 99.1 Pulse 107 Resp 18 B/P (MAP) 149/83 (105) Pulse Ox 91 O2 Delivery Room Air Room Air Room Air Room Air 04/13/20 04/14/20 04/14/20 04/14/20 23:00 02:55 03:00 03:55 Temp 98.9 98.8 98.9 98.8 Pulse 90 98 Resp 18 18 18 B/P (MAP) 147/74 (98) 150/74 (99) Pulse Ox 93 93 91 O2 Delivery Room Air Room Air Room Air Room Air 04/14/20 04/14/20 07:00 09:43 Temp 98.5 98.5 Pulse 107 Resp 19 B/P (MAP) 147/87 (107) Pulse Ox 94 94 O2 Delivery Room Air Room Air Intake and Output 04/13/20 04/13/20 04/14/20 15:00 23:00 07:00 Intake Total 1200 ml 480 ml Output Total 800 ml 650 ml Balance 1200 ml -320 ml -650 ml Justifications for Admission Other Justification CAROLINA GILLILAND MD Apr 14, 2020 10:19
--- NOTE | 2020-04-14 10:45 | PDOC ---
PROGRESS NOTES Date of Service: DATE: 04/14/20 TIME: 10:45 Chief Complaint Chief Complaint ASSESSMENT AND PLAN: Postoperative day 3, right colon resection with a cecal polyp. diabetes POST OP ILEUS slow to resolve 04/14 plan advance his diet once bowel function returns, IV fluids, p.r.n. pain meds, wound care, resume home meds. await pathology report. DPOA DISCUSSION AND REVIEW 12 MIN A1C d/w rn Operative Note Date: 04/10/2020 at 1552 Preoperative diagnosis: Cecal polyp Postoperative diagnosis: Same Procedure: Robotic assisted laparoscopic right colon resection with primary anastomosis Surgeon: Salo Specimen: Terminal ileum and cecum Dictation: Patient is a 69-year-old gentleman who underwent colonoscopy was found to have a large polyp at the cecum was too big to be removed totally with the colonoscope. Biopsies were benign. History of Present Illness History of Present Illness CHIEF COMPLAINT: Postop day 3 cecal polyp resection and right colon resection with primary anastomosis. HISTORY OF PRESENT ILLNESS: pleasant middle-aged male who underwent a right colon resection 04/10 He apparently has a cecal polyp. The patient is now postop day 2 and we have been requested to see the patient for medical evaluation and treatment of comorbidities. PAST MEDICAL HISTORY: cecal polyp, hypertension, GERD, diabetes, hypothyroidism, viral syndrome and he is on acyclovir Vitals Vitals Vital Signs Date Time Temp Pulse Resp B/P (MAP) Pulse Ox O2 Delivery O2 Flow Rate FiO2 04/14/20 09:43 94 Room Air 04/14/20 07:00 98.5 107 19 147/87 (107) 98.5 Physical Exam General: Alert, Oriented X3, Cooperative, mild distress Heart: Regular rate, Normal S1 Lungs: Clear Abdomen: Soft Extremities: No clubbing, No cyanosis, No edema Skin: No rashes Labs LABS Laboratory Tests Test 04/13/20 16:40 04/13/20 20:49 04/14/20 07:10 04/14/20 08:00 Glucose (Fingerstick) 190 mg/dL (70-99) 196 mg/dL (70-99) 170 mg/dL (70-99) White Blood Count 6.5 x10^3/uL (4.0-11.0) Red Blood Count 4.43 x10^6/uL (4.30-5.70) Hemoglobin 13.0 g/dL (13.0-17.5) Hematocrit 38.9 % (39.0-53.0) Mean Corpuscular Volume 88 fL (79-100) Mean Corpuscular Hemoglobin 29 pg (25-35) Mean Corpuscular Hemoglobin Concent 33 g/dL (31-37) Red Cell Distribution Width 15.7 % (11.5-14.5) Platelet Count 216 x10^3/uL (140-400) Neutrophils (%) (Auto) 70 % (31-73) Lymphocytes (%) (Auto) 15 % (24-48) Monocytes (%) (Auto) 9 % (0-9) Eosinophils (%) (Auto) 6 % (0-3) Basophils (%) (Auto) 1 % (0-3) Neutrophils # (Auto) 4.5 x10^3/uL (1.8-7.7) Lymphocytes # (Auto) 0.9 x10^3/uL (1.0-4.8) Monocytes # (Auto) 0.6 x10^3/uL (0.0-1.1) Eosinophils # (Auto) 0.4 x10^3/uL (0.0-0.7) Basophils # (Auto) 0.1 x10^3/uL (0.0-0.2) Sodium Level 135 mmol/L (136-145) Potassium Level 3.3 mmol/L (3.5-5.1) Chloride Level 100 mmol/L (98-107) Carbon Dioxide Level 26 mmol/L (21-32) Anion Gap 9 (6-14) Blood Urea Nitrogen 8 mg/dL (8-26) Creatinine 1.1 mg/dL (0.7-1.3) Estimated GFR (Cockcroft-Gault) 80.5 BUN/Creatinine Ratio 7 (6-20) Glucose Level 136 mg/dL (70-99) Calcium Level 7.4 mg/dL (8.5-10.1) Total Bilirubin 1.1 mg/dL (0.2-1.0) Aspartate Amino Transf (AST/SGOT) 14 U/L (15-37) Alanine Aminotransferase (ALT/SGPT) 9 U/L (16-63) Alkaline Phosphatase 57 U/L (46-116) Total Protein 6.1 g/dL (6.4-8.2) Albumin 2.1 g/dL (3.4-5.0) Albumin/Globulin Ratio 0.5 (1.0-1.7) Comment Review of Relevant I have reviewed the following items irwin (where applicable) has been applied. Labs Laboratory Tests Test 04/12/20 10:55 04/12/20 16:53 04/12/20 20:39 04/13/20 04:45 Glucose (Fingerstick) 238 mg/dL (70-99) 169 mg/dL (70-99) 156 mg/dL (70-99) White Blood Count 7.3 x10^3/uL (4.0-11.0) Red Blood Count 4.43 x10^6/uL (4.30-5.70) Hemoglobin 12.9 g/dL (13.0-17.5) Hematocrit 39.1 % (39.0-53.0) Mean Corpuscular Volume 88 fL (79-100) Mean Corpuscular Hemoglobin 29 pg (25-35) Mean Corpuscular Hemoglobin Concent 33 g/dL (31-37) Red Cell Distribution Width 15.7 % (11.5-14.5) Platelet Count 193 x10^3/uL (140-400) Neutrophils (%) (Auto) 78 % (31-73) Lymphocytes (%) (Auto) 12 % (24-48) Monocytes (%) (Auto) 6 % (0-9) Eosinophils (%) (Auto) 3 % (0-3) Basophils (%) (Auto) 0 % (0-3) Neutrophils # (Auto) 5.7 x10^3/uL (1.8-7.7) Lymphocytes # (Auto) 0.9 x10^3/uL (1.0-4.8) Monocytes # (Auto) 0.5 x10^3/uL (0.0-1.1) Eosinophils # (Auto) 0.2 x10^3/uL (0.0-0.7) Basophils # (Auto) 0.0 x10^3/uL (0.0-0.2) Sodium Level 136 mmol/L (136-145) Potassium Level 3.5 mmol/L (3.5-5.1) Chloride Level 102 mmol/L (98-107) Carbon Dioxide Level 25 mmol/L (21-32) Anion Gap 9 (6-14) Blood Urea Nitrogen 7 mg/dL (8-26) Creatinine 1.1 mg/dL (0.7-1.3) Estimated GFR (Cockcroft-Gault) 80.5 BUN/Creatinine Ratio 6 (6-20) Glucose Level 120 mg/dL (70-99) Calcium Level 8.0 mg/dL (8.5-10.1) Total Bilirubin 1.2 mg/dL (0.2-1.0) Aspartate Amino Transf (AST/SGOT) 12 U/L (15-37) Alanine Aminotransferase (ALT/SGPT) 13 U/L (16-63) Alkaline Phosphatase 61 U/L (46-116) Total Protein 5.7 g/dL (6.4-8.2) Albumin 2.1 g/dL (3.4-5.0) Albumin/Globulin Ratio 0.6 (1.0-1.7) Test 04/13/20 16:40 04/13/20 20:49 04/14/20 07:10 04/14/20 08:00 Glucose (Fingerstick) 190 mg/dL (70-99) 196 mg/dL (70-99) 170 mg/dL (70-99) White Blood Count 6.5 x10^3/uL (4.0-11.0) Red Blood Count 4.43 x10^6/uL (4.30-5.70) Hemoglobin 13.0 g/dL (13.0-17.5) Hematocrit 38.9 % (39.0-53.0) Mean Corpuscular Volume 88 fL (79-100) Mean Corpuscular Hemoglobin 29 pg (25-35) Mean Corpuscular Hemoglobin Concent 33 g/dL (31-37) Red Cell Distribution Width 15.7 % (11.5-14.5) Platelet Count 216 x10^3/uL (140-400) Neutrophils (%) (Auto) 70 % (31-73) Lymphocytes (%) (Auto) 15 % (24-48) Monocytes (%) (Auto) 9 % (0-9) Eosinophils (%) (Auto) 6 % (0-3) Basophils (%) (Auto) 1 % (0-3) Neutrophils # (Auto) 4.5 x10^3/uL (1.8-7.7) Lymphocytes # (Auto) 0.9 x10^3/uL (1.0-4.8) Monocytes # (Auto) 0.6 x10^3/uL (0.0-1.1) Eosinophils # (Auto) 0.4 x10^3/uL (0.0-0.7) Basophils # (Auto) 0.1 x10^3/uL (0.0-0.2) Sodium Level 135 mmol/L (136-145) Potassium Level 3.3 mmol/L (3.5-5.1) Chloride Level 100 mmol/L (98-107) Carbon Dioxide Level 26 mmol/L (21-32) Anion Gap 9 (6-14) Blood Urea Nitrogen 8 mg/dL (8-26) Creatinine 1.1 mg/dL (0.7-1.3) Estimated GFR (Cockcroft-Gault) 80.5 BUN/Creatinine Ratio 7 (6-20) Glucose Level 136 mg/dL (70-99) Calcium Level 7.4 mg/dL (8.5-10.1) Total Bilirubin 1.1 mg/dL (0.2-1.0) Aspartate Amino Transf (AST/SGOT) 14 U/L (15-37) Alanine Aminotransferase (ALT/SGPT) 9 U/L (16-63) Alkaline Phosphatase 57 U/L (46-116) Total Protein 6.1 g/dL (6.4-8.2) Albumin 2.1 g/dL (3.4-5.0) Albumin/Globulin Ratio 0.5 (1.0-1.7) Laboratory Tests Test 04/13/20 16:40 04/13/20 20:49 04/14/20 07:10 04/14/20 08:00 Glucose (Fingerstick) 190 mg/dL (70-99) 196 mg/dL (70-99) 170 mg/dL (70-99) White Blood Count 6.5 x10^3/uL (4.0-11.0) Red Blood Count 4.43 x10^6/uL (4.30-5.70) Hemoglobin 13.0 g/dL (13.0-17.5) Hematocrit 38.9 % (39.0-53.0) Mean Corpuscular Volume 88 fL (79-100) Mean Corpuscular Hemoglobin 29 pg (25-35) Mean Corpuscular Hemoglobin Concent 33 g/dL (31-37) Red Cell Distribution Width 15.7 % (11.5-14.5) Platelet Count 216 x10^3/uL (140-400) Neutrophils (%) (Auto) 70 % (31-73) Lymphocytes (%) (Auto) 15 % (24-48) Monocytes (%) (Auto) 9 % (0-9) Eosinophils (%) (Auto) 6 % (0-3) Basophils (%) (Auto) 1 % (0-3) Neutrophils # (Auto) 4.5 x10^3/uL (1.8-7.7) Lymphocytes # (Auto) 0.9 x10^3/uL (1.0-4.8) Monocytes # (Auto) 0.6 x10^3/uL (0.0-1.1) Eosinophils # (Auto) 0.4 x10^3/uL (0.0-0.7) Basophils # (Auto) 0.1 x10^3/uL (0.0-0.2) Sodium Level 135 mmol/L (136-145) Potassium Level 3.3 mmol/L (3.5-5.1) Chloride Level 100 mmol/L (98-107) Carbon Dioxide Level 26 mmol/L (21-32) Anion Gap 9 (6-14) Blood Urea Nitrogen 8 mg/dL (8-26) Creatinine 1.1 mg/dL (0.7-1.3) Estimated GFR (Cockcroft-Gault) 80.5 BUN/Creatinine Ratio 7 (6-20) Glucose Level 136 mg/dL (70-99) Calcium Level 7.4 mg/dL (8.5-10.1) Total Bilirubin 1.1 mg/dL (0.2-1.0) Aspartate Amino Transf (AST/SGOT) 14 U/L (15-37) Alanine Aminotransferase (ALT/SGPT) 9 U/L (16-63) Alkaline Phosphatase 57 U/L (46-116) Total Protein 6.1 g/dL (6.4-8.2) Albumin 2.1 g/dL (3.4-5.0) Albumin/Globulin Ratio 0.5 (1.0-1.7) Medications Current Medications Indocyanine Green (Ic Green) 7.5 mg ONCE ONCE IVP ; Start 04/10/20 at 06:00; Stop 04/10/20 at 06:01; Status DC Ondansetron HCl (Zofran) 4 mg PRN Q6HRS PRN IV NAUSEA/VOMITING; Start 04/10/20 at 07:00; Stop 04/11/20 at 06:59; Status DC Fentanyl Citrate (Fentanyl 2ml Vial) 25 mcg PRN Q5MIN PRN IV MILD PAIN 1-3; Start 04/10/20 at 07:00; Stop 04/11/20 at 06:59; Status DC Fentanyl Citrate (Fentanyl 2ml Vial) 50 mcg PRN Q5MIN PRN IV MODERATE TO SEVERE PAIN Last administered on 04/10/20at 16:43; Start 04/10/20 at 07:00; Stop 04/11/20 at 06:59; Status DC Morphine Sulfate (Morphine Sulfate) 1 mg PRN Q10MIN PRN IV SEVERE PAIN 7-10 Last administered on 04/10/20at 17:12; Start 04/10/20 at 07:00; Stop 04/11/20 at 06:59; Status DC Ringer's Solution 1,000 ml @ 30 mls/hr Q24H IV Last administered on 04/10/20at 11:54; Start 04/10/20 at 07:00; Stop 04/10/20 at 18:59; Status DC Hydromorphone HCl (Dilaudid) 0.5 mg PRN Q10MIN PRN IV SEV PAIN, Second choice Last administered on 04/10/20at 17:49; Start 04/10/20 at 07:00; Stop 04/11/20 at 06:59; Status DC Prochlorperazine Edisylate (Compazine) 5 mg PACU PRN PRN IV NAUSEA, MRX1 Last administered on 04/10/20at 17:58; Start 04/10/20 at 07:00; Stop 04/11/20 at 06: 59; Status DC Acetaminophen (Tylenol) 1,000 mg OC PROC PRN PO PRE-OP Last administered on 04/10/20at 11:55; Start 04/10/20 at 06:00; Stop 04/10/20 at 18:00; Status DC Cefazolin Sodium/ Dextrose 50 ml @ 100 mls/hr 1X PREOP PRN IV PRIOR TO PROCEDURE Last administered on 04/10/20at 12:53; Start 04/10/20 at 06:00; Stop 04/10/20 at 18:00; Status DC Propofol (Diprivan) 200 mg STK-MED ONCE IV ; Start 04/10/20 at 10:58; Stop 04/10/20 at 10:58; Status DC Lidocaine HCl (Lidocaine Pf 2% Vial) 5 ml STK-MED ONCE .ROUTE ; Start 04/10/20 at 10:58; Stop 04/10/20 at 10:58; Status DC Dexamethasone Sodium Phosphate (Decadron) 20 mg STK-MED ONCE .ROUTE ; Start 04/10/20 at 10:58; Stop 04/10/20 at 10:59; Status DC Ondansetron HCl (Zofran) 4 mg STK-MED ONCE .ROUTE ; Start 04/10/20 at 10:58; Stop 04/10/20 at 10:59; Status DC Famotidine (Pepcid Vial) 20 mg STK-MED ONCE .ROUTE ; Start 04/10/20 at 10:58; Stop 04/10/20 at 10:59; Status DC Ephedrine Sulfate (ePHEDrine PF IN SALINE SYRINGE) 50 mg STK-MED ONCE IV ; Start 04/10/20 at 10:58; Stop 04/10/20 at 10:59; Status DC Glycopyrrolate (Robinul) 1 mg STK-MED ONCE .ROUTE ; Start 04/10/20 at 10:59; Stop 04/10/20 at 10:59; Status DC Rocuronium [place] (Zemuron) 50 mg STK-MED ONCE .ROUTE ; Start 04/10/20 at 10:59; Stop 04/10/20 at 10:59; Status DC Fentanyl Citrate (Fentanyl 2ml Vial) 100 mcg STK-MED ONCE .ROUTE ; Start 04/10/20 at 11:00; Stop 04/10/20 at 11:00; Status DC Insulin Human Lispro (HumaLOG VIAL for OP,RR ONLY) 0-10 units PRN Q1HR PRN SQ PER PROTOCOL Last administered on 04/10/20at 12:02; Start 04/10/20 at 12:00; Stop 04/10/20 at 21:53; Status DC Bupivacaine HCl/ Epinephrine Bitart (Sensorcaine-Epi 0.25%-1:[id number] Mpf) 30 ml STK-MED ONCE .ROUTE Last administered on 04/10/20at 13:22; Start 04/10/20 at 12:35; Stop 04/10/20 at 12:35; Status DC Midazolam HCl (Versed) 2 mg STK-MED ONCE .ROUTE ; Start 04/10/20 at 12:37; Stop 04/10/20 at 12:37; Status DC Fentanyl Citrate (Fentanyl 2ml Vial) 100 mcg STK-MED ONCE .ROUTE ; Start 04/10/20 at 13:21; Stop 04/10/20 at 13:21; Status DC Sevoflurane (Ultane) 90 ml STK-MED ONCE IH ; Start 04/10/20 at 13:42; Stop 04/10/20 at 13:42; Status DC Neostigmine [place] (Neostigmine Methylsulfate) 5 mg STK-MED ONCE .ROUTE ; Start 04/10/20 at 13:42; Stop 04/10/20 at 13:42; Status DC Cefoxitin Sodium (Mefoxin) 1 gm Q8H IVP Last administered on 04/11/20at 14:11; Start 04/10/20 at 21:00; Stop 04/11/20 at 13:01; Status DC Sodium Chloride (Normal Saline Flush) 3 ml QSHIFT PRN IV AFTER MEDS AND BLOOD DRAWS; Start 04/10/20 at 16:00 Morphine Sulfate (Morphine Sulfate) 2 mg PRN Q3HRS PRN IV PAIN Last administered on 04/13/20at 18:56; Start 04/10/20 at 16:00 Oxycodone/ Acetaminophen (Percocet 5/325) 1 tab PRN Q4HRS PRN PO MILD PAIN, 1ST CHOICE Last administered on 04/13/20at 18:10; Start 04/10/20 at 16:00 Oxycodone/ Acetaminophen (Percocet 5/325) 2 tab PRN Q4HRS PRN PO MODERATE PAIN, SEVERE PAIN Last administered on 04/14/20at 09:43; Start 04/10/20 at 16:00 Ketorolac Tromethamine (Toradol 15mg Vial) 15 mg Q6HRS IV Last administered on 04/12/20at 12:13; Start 04/10/20 at 18:00; Stop 04/12/20 at 17:59; Status DC Ondansetron HCl (Zofran) 4 mg PRN Q6HRS PRN IV NAUSEA, 1ST CHOICE; Start 04/10/20 at 16:00 Dextrose/Lactated Ringer's 1,000 ml @ 75 mls/hr [id number] IV Last administered on 04/11/20at 05:32; Start 04/10/20 at 15:59 Fentanyl Citrate (Fentanyl 2ml Vial) 100 mcg STK-MED ONCE .ROUTE ; Start 04/10/20 at 16:28; Stop 04/10/20 at 16:28; Status DC Ketorolac Tromethamine (Toradol 30mg Vial) 30 mg STK-MED ONCE .ROUTE ; Start 04/10/20 at 16:57; Stop 04/10/20 at 16:57; Status DC Ketorolac Tromethamine (Toradol 30mg Vial) 30 mg 1X ONCE IVP Last administered on 04/10/20at 17:04; Start 04/10/20 at 17:00; Stop 04/10/20 at 17:15; Status DC Hydromorphone HCl (Dilaudid) 2 mg STK-MED ONCE .ROUTE ; Start 04/10/20 at 17:14; Stop 04/10/20 at 17:15; Status DC Prochlorperazine Edisylate (Compazine) 10 mg STK-MED ONCE .ROUTE ; Start 04/10/20 at 17:57; Stop 04/10/20 at 17:57; Status DC Insulin Human Lispro (HumaLOG) 0-7 UNITS TIDWMEALS SQ Last administered on 04/12/20at 17:15; Start 04/11/20 at 08:00 Dextrose (Dextrose 50%-Water Syringe) 12.5 gm PRN Q15MIN PRN IV SEE COMMENTS; Start 04/10/20 at 22:00 Non-Formulary Medication (Insulin Glargine,Hum.rec.anlog (Lantus Solostar)) 18 unit HS SQ ; Start 04/11/20 at 21:00; Status UNV Insulin Human Lispro (HumaLOG) 6 units 1X ONCE SQ Last administered on 04/10/20at 23:05; Start 04/10/20 at 22:00; Stop 04/10/20 at 22:01; Status DC Insulin Glargine (Lantus Syringe) 18 unit QHS SQ Last administered on 04/13/20at 21:49; Start 04/10/20 at 22:30 Tamsulosin HCl (Flomax) 0.4 mg DAILY PO Last administered on 04/14/20at 08:45; Start 04/12/20 at 09:00 Active Scripts Active Reported Children's Aspirin (Aspirin) 81 Mg Tab.chew 1 Tab PO DAILY 30 Days Humalog (Insulin Lispro) 100 Unit/1 Ml Insuln.pen SQ 8UNITS AC TID Centrum Silver Tablet (Multivits-Min/Fa/Lycopene/Lut) 1 Each Tablet 1 Each PO DAILY Metformin Hcl 500 Mg Tablet 500 Mg PO BID Levothyroxine Sodium 150 Mcg Tablet 150 Mcg PO DAILY Gulshan 5-20 Mg Tablet (Amlodipine Bes/Olmesartan Med) 1 Each Tablet 1 Each PO DAILY Fluvastatin Sodium 40 Mg Capsule 40 Mg PO HS Acyclovir 400 Mg Tablet 400 Mg PO DAILY Omeprazole 20 Mg Capsule.dr 20 Mg PO DAILY Lantus Solostar (Insulin Glargine,Hum.rec.anlog) 100 Unit/1 Ml Insuln.pen 18 Unit SQ HS Vitals/I & O Vital Sign - Last 24 Hours 04/13/20 04/13/20 04/13/20 04/13/20 11:00 15:00 18:10 18:56 Temp 98.2 98.4 98.2 98.4 Pulse 112 98 Resp 18 18 B/P (MAP) 145/80 (101) 132/80 (97) Pulse Ox 93 94 94 94 O2 Delivery Room Air Room Air Room Air Room Air 04/13/20 04/13/20 04/13/20 04/13/20 19:00 19:10 19:26 20:30 Temp 99.1 99.1 Pulse 107 Resp 18 B/P (MAP) 149/83 (105) Pulse Ox 91 O2 Delivery Room Air Room Air Room Air Room Air 04/13/20 04/14/20 04/14/20 04/14/20 23:00 02:55 03:00 03:55 Temp 98.9 98.8 98.9 98.8 Pulse 90 98 Resp 18 18 18 B/P (MAP) 147/74 (98) 150/74 (99) Pulse Ox 93 93 91 O2 Delivery Room Air Room Air Room Air Room Air 04/14/20 04/14/20 07:00 09:43 Temp 98.5 98.5 Pulse 107 Resp 19 B/P (MAP) 147/87 (107) Pulse Ox 94 94 O2 Delivery Room Air Room Air Intake and Output 04/13/20 04/13/20 04/14/20 15:00 23:00 07:00 Intake Total 1200 ml 480 ml Output Total 800 ml 650 ml Balance 1200 ml -320 ml -650 ml Justicifation of Admission Dx: Justifications for Admission: Justification of Admission Dx: Yes VIVIAN KHALIL MD Apr 14, 2020 10:45
[2020-04-14 11:00] VITALS: BP 153/82
[2020-04-14] MEDS: IV DEXTROSE 5%-LACT RINGERS 1,000 ML IV SCH (13:19)
[2020-04-14 15:00] VITALS: BP 149/83
[2020-04-14 19:00] VITALS: BP 148/75
[2020-04-14] MEDS: POTASSIUM CHLORIDE 10MEQ 100 ML IV SCH ×3 (20:00→23:00)
[2020-04-14] MEDS: INSULIN GLARGINE SYRINGE. SQ SCH (22:58)
[2020-04-14 23:00] VITALS: BP 159/72
[2020-04-15] MEDS: MORPHINE SULFATE 2 MG/ML VIAL. IV PRN (00:31)
[2020-04-15] MEDS ORDERED: POTASSIUM CHLORIDE 10 MEQ TABLET.ER. PO ONE (01:00)
[2020-04-15] MEDS: IV DEXTROSE 5%-LACT RINGERS 1,000 ML IV SCH ×2 (02:39→15:59)
[2020-04-15 03:00] VITALS: BP 152/89
[2020-04-15] MEDS: oxyCODONE/APAP 5/325 1 TAB TABLET PO PRN (06:11)
[2020-04-15 07:00] VITALS: BP 152/81
[2020-04-15 07:48] LABS: BASO % 1 % (0-3); EOS # 0.3 x10^3/uL (0.0-0.7); EOS % 6 % (0-3); HEMATOCRIT 39.1 % (39.0-53.0); LYMPH # 0.8 x10^3/uL (1.0-4.8); LYMPH % 15 % (24-48); MEAN CORPUSCULAR HEMOGLOBIN 29 pg (25-35); MEAN CORPUSCULAR HGB CONC 33 g/dL (31-37); MEAN CORPUSCULAR VOLUME 87 fL (79-100); MONO # 0.6 x10^3/uL (0.0-1.1); MONO % 12 % (0-9); NEUT # 3.5 x10^3/uL (1.8-7.7); NEUT % 66 % (31-73); PLATELET COUNT 227 x10^3/uL (140-400); RED CELL DISTRIBUTION WIDTH 15.4 % (11.5-14.5); WHITE BLOOD COUNT 5.3 x10^3/uL (4.0-11.0)
[2020-04-15] MEDS: INSULIN LISPRO 300 UNITS/3 ML VIAL. SQ SCH ×3 (08:00→17:24)
[2020-04-15 08:29] LABS: ALBUMIN 2.1 g/dL (3.4-5.0); ALBUMIN/GLOBULIN RATIO 0.5 (1.0-1.7); CALCIUM 7.6 mg/dL (8.5-10.1); GFR 89.9; POTASSIUM 3.4 mmol/L (3.5-5.1); TOTAL BILIRUBIN 0.8 mg/dL (0.2-1.0)
[2020-04-15] MEDS: TAMSULOSIN 0.4 MG CAP.ER.24H. PO SCH (08:39)
[2020-04-15 11:00] VITALS: BP 157/80
--- NOTE | 2020-04-15 11:42 | PDOC ---
PROGRESS NOTES Date of Service: DATE: 04/15/20 TIME: 11:42 Chief Complaint Chief Complaint ASSESSMENT AND PLAN: Postoperative day 4, right colon resection with a cecal polyp. diabetes POST OP ILEUS slow to resolve 04/15 plan advance his diet once bowel function returns, IV fluids, p.r.n. pain meds, wound care, resume home meds. await pathology report. DPOA DISCUSSION AND REVIEW 12 MIN A1C d/w rn Operative Note Date: 04/10/2020 at 1552 Preoperative diagnosis: Cecal polyp Postoperative diagnosis: Same Procedure: Robotic assisted laparoscopic right colon resection with primary anastomosis Surgeon: Salo Specimen: Terminal ileum and cecum Dictation: Patient is a 69-year-old gentleman who underwent colonoscopy was found to have a large polyp at the cecum was too big to be removed totally with the colonoscope. Biopsies were benign. History of Present Illness History of Present Illness CHIEF COMPLAINT: Postop day 3 cecal polyp resection and right colon resection with primary anastomosis. HISTORY OF PRESENT ILLNESS: pleasant middle-aged male who underwent a right colon resection 04/10 He apparently has a cecal polyp. The patient is now postop day 2 and we have been requested to see the patient for medical evaluation and treatment of comorbidities. PAST MEDICAL HISTORY: cecal polyp, hypertension, GERD, diabetes, hypothyroidism, viral syndrome and he is on acyclovir Vitals Vitals Vital Signs Date Time Temp Pulse Resp B/P (MAP) Pulse Ox O2 Delivery O2 Flow Rate FiO2 04/15/20 08:00 Nasal Cannula 2.0 04/15/20 07:00 98.5 91 18 152/81 (104) 95 98.5 Physical Exam General: Alert, Oriented X3, Cooperative, No acute distress Heart: Regular rate, Normal S1 Lungs: Clear Abdomen: Soft, No tenderness Extremities: No clubbing, No cyanosis, No edema Skin: No rashes Labs LABS Laboratory Tests Test 04/14/20 16:54 04/14/20 20:36 04/15/20 06:00 04/15/20 06:50 Glucose (Fingerstick) 224 mg/dL (70-99) 174 mg/dL (70-99) Sodium Level 135 mmol/L (136-145) Potassium Level 3.4 mmol/L (3.5-5.1) Chloride Level 100 mmol/L (98-107) Carbon Dioxide Level 27 mmol/L (21-32) Anion Gap 8 (6-14) Blood Urea Nitrogen 6 mg/dL (8-26) Creatinine 1.0 mg/dL (0.7-1.3) Estimated GFR (Cockcroft-Gault) 89.9 BUN/Creatinine Ratio 6 (6-20) Glucose Level 101 mg/dL (70-99) Calcium Level 7.6 mg/dL (8.5-10.1) Total Bilirubin 0.8 mg/dL (0.2-1.0) Aspartate Amino Transf (AST/SGOT) 16 U/L (15-37) Alanine Aminotransferase (ALT/SGPT) 12 U/L (16-63) Alkaline Phosphatase 51 U/L (46-116) Total Protein 6.0 g/dL (6.4-8.2) Albumin 2.1 g/dL (3.4-5.0) Albumin/Globulin Ratio 0.5 (1.0-1.7) White Blood Count 5.3 x10^3/uL (4.0-11.0) Red Blood Count 4.50 x10^6/uL (4.30-5.70) Hemoglobin 13.0 g/dL (13.0-17.5) Hematocrit 39.1 % (39.0-53.0) Mean Corpuscular Volume 87 fL (79-100) Mean Corpuscular Hemoglobin 29 pg (25-35) Mean Corpuscular Hemoglobin Concent 33 g/dL (31-37) Red Cell Distribution Width 15.4 % (11.5-14.5) Platelet Count 227 x10^3/uL (140-400) Neutrophils (%) (Auto) 66 % (31-73) Lymphocytes (%) (Auto) 15 % (24-48) Monocytes (%) (Auto) 12 % (0-9) Eosinophils (%) (Auto) 6 % (0-3) Basophils (%) (Auto) 1 % (0-3) Neutrophils # (Auto) 3.5 x10^3/uL (1.8-7.7) Lymphocytes # (Auto) 0.8 x10^3/uL (1.0-4.8) Monocytes # (Auto) 0.6 x10^3/uL (0.0-1.1) Eosinophils # (Auto) 0.3 x10^3/uL (0.0-0.7) Basophils # (Auto) 0.0 x10^3/uL (0.0-0.2) Test 04/15/20 07:03 04/15/20 11:38 Glucose (Fingerstick) 125 mg/dL (70-99) 181 mg/dL (70-99) Comment Review of Relevant I have reviewed the following items irwin (where applicable) has been applied. Labs Laboratory Tests Test 04/13/20 16:40 04/13/20 20:49 04/14/20 07:10 04/14/20 08:00 Glucose (Fingerstick) 190 mg/dL (70-99) 196 mg/dL (70-99) 170 mg/dL (70-99) White Blood Count 6.5 x10^3/uL (4.0-11.0) Red Blood Count 4.43 x10^6/uL (4.30-5.70) Hemoglobin 13.0 g/dL (13.0-17.5) Hematocrit 38.9 % (39.0-53.0) Mean Corpuscular Volume 88 fL (79-100) Mean Corpuscular Hemoglobin 29 pg (25-35) Mean Corpuscular Hemoglobin Concent 33 g/dL (31-37) Red Cell Distribution Width 15.7 % (11.5-14.5) Platelet Count 216 x10^3/uL (140-400) Neutrophils (%) (Auto) 70 % (31-73) Lymphocytes (%) (Auto) 15 % (24-48) Monocytes (%) (Auto) 9 % (0-9) Eosinophils (%) (Auto) 6 % (0-3) Basophils (%) (Auto) 1 % (0-3) Neutrophils # (Auto) 4.5 x10^3/uL (1.8-7.7) Lymphocytes # (Auto) 0.9 x10^3/uL (1.0-4.8) Monocytes # (Auto) 0.6 x10^3/uL (0.0-1.1) Eosinophils # (Auto) 0.4 x10^3/uL (0.0-0.7) Basophils # (Auto) 0.1 x10^3/uL (0.0-0.2) Sodium Level 135 mmol/L (136-145) Potassium Level 3.3 mmol/L (3.5-5.1) Chloride Level 100 mmol/L (98-107) Carbon Dioxide Level 26 mmol/L (21-32) Anion Gap 9 (6-14) Blood Urea Nitrogen 8 mg/dL (8-26) Creatinine 1.1 mg/dL (0.7-1.3) Estimated GFR (Cockcroft-Gault) 80.5 BUN/Creatinine Ratio 7 (6-20) Glucose Level 136 mg/dL (70-99) Calcium Level 7.4 mg/dL (8.5-10.1) Total Bilirubin 1.1 mg/dL (0.2-1.0) Aspartate Amino Transf (AST/SGOT) 14 U/L (15-37) Alanine Aminotransferase (ALT/SGPT) 9 U/L (16-63) Alkaline Phosphatase 57 U/L (46-116) Total Protein 6.1 g/dL (6.4-8.2) Albumin 2.1 g/dL (3.4-5.0) Albumin/Globulin Ratio 0.5 (1.0-1.7) Test 04/14/20 11:40 04/14/20 16:54 04/14/20 20:36 04/15/20 06:00 Glucose (Fingerstick) 202 mg/dL (70-99) 224 mg/dL (70-99) 174 mg/dL (70-99) Sodium Level 135 mmol/L (136-145) Potassium Level 3.4 mmol/L (3.5-5.1) Chloride Level 100 mmol/L (98-107) Carbon Dioxide Level 27 mmol/L (21-32) Anion Gap 8 (6-14) Blood Urea Nitrogen 6 mg/dL (8-26) Creatinine 1.0 mg/dL (0.7-1.3) Estimated GFR (Cockcroft-Gault) 89.9 BUN/Creatinine Ratio 6 (6-20) Glucose Level 101 mg/dL (70-99) Calcium Level 7.6 mg/dL (8.5-10.1) Total Bilirubin 0.8 mg/dL (0.2-1.0) Aspartate Amino Transf (AST/SGOT) 16 U/L (15-37) Alanine Aminotransferase (ALT/SGPT) 12 U/L (16-63) Alkaline Phosphatase 51 U/L (46-116) Total Protein 6.0 g/dL (6.4-8.2) Albumin 2.1 g/dL (3.4-5.0) Albumin/Globulin Ratio 0.5 (1.0-1.7) Test 04/15/20 06:50 04/15/20 07:03 04/15/20 11:38 White Blood Count 5.3 x10^3/uL (4.0-11.0) Red Blood Count 4.50 x10^6/uL (4.30-5.70) Hemoglobin 13.0 g/dL (13.0-17.5) Hematocrit 39.1 % (39.0-53.0) Mean Corpuscular Volume 87 fL (79-100) Mean Corpuscular Hemoglobin 29 pg (25-35) Mean Corpuscular Hemoglobin Concent 33 g/dL (31-37) Red Cell Distribution Width 15.4 % (11.5-14.5) Platelet Count 227 x10^3/uL (140-400) Neutrophils (%) (Auto) 66 % (31-73) Lymphocytes (%) (Auto) 15 % (24-48) Monocytes (%) (Auto) 12 % (0-9) Eosinophils (%) (Auto) 6 % (0-3) Basophils (%) (Auto) 1 % (0-3) Neutrophils # (Auto) 3.5 x10^3/uL (1.8-7.7) Lymphocytes # (Auto) 0.8 x10^3/uL (1.0-4.8) Monocytes # (Auto) 0.6 x10^3/uL (0.0-1.1) Eosinophils # (Auto) 0.3 x10^3/uL (0.0-0.7) Basophils # (Auto) 0.0 x10^3/uL (0.0-0.2) Glucose (Fingerstick) 125 mg/dL (70-99) 181 mg/dL (70-99) Laboratory Tests Test 04/14/20 16:54 04/14/20 20:36 04/15/20 06:00 04/15/20 06:50 Glucose (Fingerstick) 224 mg/dL (70-99) 174 mg/dL (70-99) Sodium Level 135 mmol/L (136-145) Potassium Level 3.4 mmol/L (3.5-5.1) Chloride Level 100 mmol/L (98-107) Carbon Dioxide Level 27 mmol/L (21-32) Anion Gap 8 (6-14) Blood Urea Nitrogen 6 mg/dL (8-26) Creatinine 1.0 mg/dL (0.7-1.3) Estimated GFR (Cockcroft-Gault) 89.9 BUN/Creatinine Ratio 6 (6-20) Glucose Level 101 mg/dL (70-99) Calcium Level 7.6 mg/dL (8.5-10.1) Total Bilirubin 0.8 mg/dL (0.2-1.0) Aspartate Amino Transf (AST/SGOT) 16 U/L (15-37) Alanine Aminotransferase (ALT/SGPT) 12 U/L (16-63) Alkaline Phosphatase 51 U/L (46-116) Total Protein 6.0 g/dL (6.4-8.2) Albumin 2.1 g/dL (3.4-5.0) Albumin/Globulin Ratio 0.5 (1.0-1.7) White Blood Count 5.3 x10^3/uL (4.0-11.0) Red Blood Count 4.50 x10^6/uL (4.30-5.70) Hemoglobin 13.0 g/dL (13.0-17.5) Hematocrit 39.1 % (39.0-53.0) Mean Corpuscular Volume 87 fL (79-100) Mean Corpuscular Hemoglobin 29 pg (25-35) Mean Corpuscular Hemoglobin Concent 33 g/dL (31-37) Red Cell Distribution Width 15.4 % (11.5-14.5) Platelet Count 227 x10^3/uL (140-400) Neutrophils (%) (Auto) 66 % (31-73) Lymphocytes (%) (Auto) 15 % (24-48) Monocytes (%) (Auto) 12 % (0-9) Eosinophils (%) (Auto) 6 % (0-3) Basophils (%) (Auto) 1 % (0-3) Neutrophils # (Auto) 3.5 x10^3/uL (1.8-7.7) Lymphocytes # (Auto) 0.8 x10^3/uL (1.0-4.8) Monocytes # (Auto) 0.6 x10^3/uL (0.0-1.1) Eosinophils # (Auto) 0.3 x10^3/uL (0.0-0.7) Basophils # (Auto) 0.0 x10^3/uL (0.0-0.2) Test 04/15/20 07:03 04/15/20 11:38 Glucose (Fingerstick) 125 mg/dL (70-99) 181 mg/dL (70-99) Medications Current Medications Indocyanine Green (Ic Green) 7.5 mg ONCE ONCE IVP ; Start 04/10/20 at 06:00; Stop 04/10/20 at 06:01; Status DC Ondansetron HCl (Zofran) 4 mg PRN Q6HRS PRN IV NAUSEA/VOMITING; Start 04/10/20 at 07:00; Stop 04/11/20 at 06:59; Status DC Fentanyl Citrate (Fentanyl 2ml Vial) 25 mcg PRN Q5MIN PRN IV MILD PAIN 1-3; Start 04/10/20 at 07:00; Stop 04/11/20 at 06:59; Status DC Fentanyl Citrate (Fentanyl 2ml Vial) 50 mcg PRN Q5MIN PRN IV MODERATE TO SEVERE PAIN Last administered on 04/10/20at 16:43; Start 04/10/20 at 07:00; Stop 04/11/20 at 06:59; Status DC Morphine Sulfate (Morphine Sulfate) 1 mg PRN Q10MIN PRN IV SEVERE PAIN 7-10 Last administered on 04/10/20at 17:12; Start 04/10/20 at 07:00; Stop 04/11/20 at 06:59; Status DC Ringer's Solution 1,000 ml @ 30 mls/hr Q24H IV Last administered on 04/10/20at 11:54; Start 04/10/20 at 07:00; Stop 04/10/20 at 18:59; Status DC Hydromorphone HCl (Dilaudid) 0.5 mg PRN Q10MIN PRN IV SEV PAIN, Second choice Last administered on 04/10/20at 17:49; Start 04/10/20 at 07:00; Stop 04/11/20 at 06:59; Status DC Prochlorperazine Edisylate (Compazine) 5 mg PACU PRN PRN IV NAUSEA, MRX1 Last administered on 04/10/20at 17:58; Start 04/10/20 at 07:00; Stop 04/11/20 at 06:59; Status DC Acetaminophen (Tylenol) 1,000 mg OC PROC PRN PO PRE-OP Last administered on 04/10/20at 11:55; Start 04/10/20 at 06:00; Stop 04/10/20 at 18:00; Status DC Cefazolin Sodium/ Dextrose 50 ml @ 100 mls/hr 1X PREOP PRN IV PRIOR TO PROCEDURE Last administered on 04/10/20at 12:53; Start 04/10/20 at 06:00; Stop 04/10/20 at 18:00; Status DC Propofol (Diprivan) 200 mg STK-MED ONCE IV ; Start 04/10/20 at 10:58; Stop 04/10/20 at 10:58; Status DC Lidocaine HCl (Lidocaine Pf 2% Vial) 5 ml STK-MED ONCE .ROUTE ; Start 04/10/20 at 10:58; Stop 04/10/20 at 10:58; Status DC Dexamethasone Sodium Phosphate (Decadron) 20 mg STK-MED ONCE .ROUTE ; Start 04/10/20 at 10:58; Stop 04/10/20 at 10:59; Status DC Ondansetron HCl (Zofran) 4 mg STK-MED ONCE .ROUTE ; Start 04/10/20 at 10:58; Stop 04/10/20 at 10:59; Status DC Famotidine (Pepcid Vial) 20 mg STK-MED ONCE .ROUTE ; Start 04/10/20 at 10:58; Stop 04/10/20 at 10:59; Status DC Ephedrine Sulfate (ePHEDrine PF IN SALINE SYRINGE) 50 mg STK-MED ONCE IV ; Start 04/10/20 at 10:58; Stop 04/10/20 at 10:59; Status DC Glycopyrrolate (Robinul) 1 mg STK-MED ONCE .ROUTE ; Start 04/10/20 at 10:59; Stop 04/10/20 at 10:59; Status DC Rocuronium Albers (Zemuron) 50 mg STK-MED ONCE .ROUTE ; Start 04/10/20 at 10:59; Stop 04/10/20 at 10:59; Status DC Fentanyl Citrate (Fentanyl 2ml Vial) 100 mcg STK-MED ONCE .ROUTE ; Start 04/10/20 at 11:00; Stop 04/10/20 at 11:00; Status DC Insulin Human Lispro (HumaLOG VIAL for OP,RR ONLY) 0-10 units PRN Q1HR PRN SQ PER PROTOCOL Last administered on 04/10/20at 12:02; Start 04/10/20 at 12:00; Stop 04/10/20 at 21:53; Status DC Bupivacaine HCl/ Epinephrine Bitart (Sensorcaine-Epi 0.25%-1:[id number] Mpf) 30 ml STK-MED ONCE .ROUTE Last administered on 04/10/20at 13:22; Start 04/10/20 at 12:35; Stop 04/10/20 at 12:35; Status DC Midazolam HCl (Versed) 2 mg STK-MED ONCE .ROUTE ; Start 04/10/20 at 12:37; Stop 04/10/20 at 12:37; Status DC Fentanyl Citrate (Fentanyl 2ml Vial) 100 mcg STK-MED ONCE .ROUTE ; Start 04/10/20 at 13:21; Stop 04/10/20 at 13:21; Status DC Sevoflurane (Ultane) 90 ml STK-MED ONCE IH ; Start 04/10/20 at 13:42; Stop 04/10/20 at 13:42; Status DC Neostigmine Albers (Neostigmine Methylsulfate) 5 mg STK-MED ONCE .ROUTE ; St art 04/10/20 at 13:42; Stop 04/10/20 at 13:42; Status DC Cefoxitin Sodium (Mefoxin) 1 gm Q8H IVP Last administered on 04/11/20at 14:11; Start 04/10/20 at 21:00; Stop 04/11/20 at 13:01; Status DC Sodium Chloride (Normal Saline Flush) 3 ml QSHIFT PRN IV AFTER MEDS AND BLOOD DRAWS; Start 04/10/20 at 16:00 Morphine Sulfate (Morphine Sulfate) 2 mg PRN Q3HRS PRN IV PAIN Last administe red on 04/15/20at 00:31; Start 04/10/20 at 16:00 Oxycodone/ Acetaminophen (Percocet 5/325) 1 tab PRN Q4HRS PRN PO MILD PAIN, 1ST CHOICE Last administered on 04/15/20at 06:11; Start 04/10/20 at 16:00 Oxycodone/ Acetaminophen (Percocet 5/325) 2 tab PRN Q4HRS PRN PO MODERATE PAIN, SEVERE PAIN Last administered on 04/14/20at 09:43; Start 04/10/20 at 16:00 Ketorolac Tromethamine (Toradol 15mg Vial) 15 mg Q6HRS IV Last administered on 04/12/20at 12:13; Start 04/10/20 at 18:00; Stop 04/12/20 at 17:59; Status DC Ondansetron HCl (Zofran) 4 mg PRN Q6HRS PRN IV NAUSEA, 1ST CHOICE; Start 04/10/20 at 16:00 Dextrose/Lactated Ringer's 1,000 ml @ 75 mls/hr [id number] IV Last administered on 04/11/20at 05:32; Start 04/10/20 at 15:59 Fentanyl Citrate (Fentanyl 2ml Vial) 100 mcg STK-MED ONCE .ROUTE ; Start 04/10/20 at 16:28; Stop 04/10/20 at 16:28; Status DC Ketorolac Tromethamine (Toradol 30mg Vial) 30 mg STK-MED ONCE .ROUTE ; Start 04/10/20 at 16:57; Stop 04/10/20 at 16:57; Status DC Ketorolac Tromethamine (Toradol 30mg Vial) 30 mg 1X ONCE IVP Last administered on 04/10/20at 17:04; Start 04/10/20 at 17:00; Stop 04/10/20 at 17:15; Status DC Hydromorphone HCl (Dilaudid) 2 mg STK-MED ONCE .ROUTE ; Start 04/10/20 at 17:14; Stop 04/10/20 at 17:15; Status DC Prochlorperazine Edisylate (Compazine) 10 mg STK-MED ONCE .ROUTE ; Start 04/10/20 at 17:57; Stop 04/10/20 at 17:57; Status DC Insulin Human Lispro (HumaLOG) 0-7 UNITS TIDWMEALS SQ Last administered on 04/14/20at 17:32; Start 04/11/20 at 08:00 Dextrose (Dextrose 50%-Water Syringe) 12.5 gm PRN Q15MIN PRN IV SEE COMMENTS; Start 04/10/20 at 22:00 Non-Formulary Medication (Insulin Glargine,Hum.rec.anlog (Lantus Solostar)) 18 unit HS SQ ; Start 04/11/20 at 21:00; Status UNV Insulin Human Lispro (HumaLOG) 6 units 1X ONCE SQ Last administered on 04/10/20at 23:05; Start 04/10/20 at 22:00; Stop 04/10/20 at 22:01; Status DC Insulin Glargine (Lantus Syringe) 18 unit QHS SQ Last administered on 04/14/20at 22:58; Start 04/10/20 at 22:30 Tamsulosin HCl (Flomax) 0.4 mg DAILY PO Last administered on 04/15/20at 08:39; Start 04/12/20 at 09:00 Potassium Chloride/Water 100 ml @ 100 mls/hr Q1H IV Last administered on 04/14/20at 20:39; Start 04/14/20 at 19:00; Stop 04/14/20 at 20:59; Status DC Potassium Chloride (Klor-Con) 30 meq 1X ONCE PO Last administered on 04/15/20at 00:29; Start 04/15/20 at 01:00; Stop 04/15/20 at 01:01; Status DC Active Scripts Active Reported Children's Aspirin (Aspirin) 81 Mg Tab.chew 1 Tab PO DAILY 30 Days Humalog (Insulin Lispro) 100 Unit/1 Ml Insuln.pen SQ 8UNITS AC TID Centrum Silver Tablet (Multivits-Min/Fa/Lycopene/Lut) 1 Each Tablet 1 Each PO DAILY Metformin Hcl 500 Mg Tablet 500 Mg PO BID Levothyroxine Sodium 150 Mcg Tablet 150 Mcg PO DAILY Gulshan 5-20 Mg Tablet (Amlodipine Bes/Olmesartan Med) 1 Each Tablet 1 Each PO DAILY Fluvastatin Sodium 40 Mg Capsule 40 Mg PO HS Acyclovir 400 Mg Tablet 400 Mg PO DAILY Omeprazole 20 Mg Capsule.dr 20 Mg PO DAILY Lantus Solostar (Insulin Glargine,Hum.rec.anlog) 100 Unit/1 Ml Insuln.pen 18 Unit SQ HS Vitals/I & O Vital Sign - Last 24 Hours 04/14/20 04/14/20 04/14/20 04/14/20 12:01 15:00 17:17 19:00 Temp 97.7 97.7 Pulse 99 Resp 19 B/P (MAP) 149/83 (105) Pulse Ox 93 93 O2 Delivery Room Air Room Air Room Air Room Air O2 Flow Rate 2.0 04/14/20 04/14/20 04/14/20 04/14/20 19:00 19:35 22:52 23:00 Temp 98.7 98.4 98.7 98.4 Pulse 99 90 Resp 19 17 B/P (MAP) 148/75 (99) 159/72 (101) Pulse Ox 92 92 O2 Delivery Room Air Nasal Cannula Room Air Nasal Cannula O2 Flow Rate 2.0 2.0 04/14/20 04/15/20 04/15/20 04/15/20 23:52 00:31 02:17 03:00 Temp 98.6 98.6 Pulse 94 Resp 18 B/P (MAP) 152/89 (110) Pulse Ox 95 O2 Delivery Nasal Cannula Room Air Nasal Cannula Nasal Cannula O2 Flow Rate 2.0 2.0 2.0 04/15/20 04/15/20 04/15/20 04/15/20 06:11 07:00 07:11 08:00 Temp 98.5 98.5 Pulse 91 Resp 18 B/P (MAP) 152/81 (104) Pulse Ox 95 O2 Delivery Nasal Cannula Room Air Room Air Nasal Cannula O2 Flow Rate 2.0 2.0 Intake and Output 04/14/20 04/14/20 04/15/20 15:00 23:00 07:00 Intake Total 0 ml 300 ml Output Total 500 ml 1025 ml Balance -500 ml 0 ml -725 ml Justicifation of Admission Dx: Justifications for Admission: Justification of Admission Dx: Yes VIVIAN KHALIL MD Apr 15, 2020 11:42
--- NOTE | 2020-04-15 13:33 | PDOC ---
PROGRESS NOTES Date of Service DATE: 04/15/20 TIME: 13:32 Subjective Subjective doing ok, some frustration with lack of bowel function; no flatus or stool Objective Objective Vital Signs Date Time Temp Pulse Resp B/P (MAP) Pulse Ox O2 Delivery O2 Flow Rate FiO2 04/15/20 11:00 98.4 92 18 157/80 (105) 95 Room Air 98.4 04/15/20 08:00 2.0 Intake and Output 04/15/20 07:00 Intake Total 300 ml Output Total 1525 ml Balance -1225 ml Intake Oral 300 ml Output Urine Total 1525 ml Physical Exam Abdomen: Soft Assessment Assessment S/P Robotic R colectomy Plan Plan of Care Await return of bowel function Comment Review of Relevant I have reviewed the following items irwin (where applicable) has been applied. Labs Laboratory Tests Test 04/13/20 16:40 04/13/20 20:49 04/14/20 07:10 04/14/20 08:00 Glucose (Fingerstick) 190 mg/dL (70-99) 196 mg/dL (70-99) 170 mg/dL (70-99) White Blood Count 6.5 x10^3/uL (4.0-11.0) Red Blood Count 4.43 x10^6/uL (4.30-5.70) Hemoglobin 13.0 g/dL (13.0-17.5) Hematocrit 38.9 % (39.0-53.0) Mean Corpuscular Volume 88 fL (79-100) Mean Corpuscular Hemoglobin 29 pg (25-35) Mean Corpuscular Hemoglobin Concent 33 g/dL (31-37) Red Cell Distribution Width 15.7 % (11.5-14.5) Platelet Count 216 x10^3/uL (140-400) Neutrophils (%) (Auto) 70 % (31-73) Lymphocytes (%) (Auto) 15 % (24-48) Monocytes (%) (Auto) 9 % (0-9) Eosinophils (%) (Auto) 6 % (0-3) Basophils (%) (Auto) 1 % (0-3) Neutrophils # (Auto) 4.5 x10^3/uL (1.8-7.7) Lymphocytes # (Auto) 0.9 x10^3/uL (1.0-4.8) Monocytes # (Auto) 0.6 x10^3/uL (0.0-1.1) Eosinophils # (Auto) 0.4 x10^3/uL (0.0-0.7) Basophils # (Auto) 0.1 x10^3/uL (0.0-0.2) Sodium Level 135 mmol/L (136-145) Potassium Level 3.3 mmol/L (3.5-5.1) Chloride Level 100 mmol/L (98-107) Carbon Dioxide Level 26 mmol/L (21-32) Anion Gap 9 (6-14) Blood Urea Nitrogen 8 mg/dL (8-26) Creatinine 1.1 mg/dL (0.7-1.3) Estimated GFR (Cockcroft-Gault) 80.5 BUN/Creatinine Ratio 7 (6-20) Glucose Level 136 mg/dL (70-99) Calcium Level 7.4 mg/dL (8.5-10.1) Total Bilirubin 1.1 mg/dL (0.2-1.0) Aspartate Amino Transf (AST/SGOT) 14 U/L (15-37) Alanine Aminotransferase (ALT/SGPT) 9 U/L (16-63) Alkaline Phosphatase 57 U/L (46-116) Total Protein 6.1 g/dL (6.4-8.2) Albumin 2.1 g/dL (3.4-5.0) Albumin/Globulin Ratio 0.5 (1.0-1.7) Test 04/14/20 11:40 04/14/20 16:54 04/14/20 20:36 04/15/20 06:00 Glucose (Fingerstick) 202 mg/dL (70-99) 224 mg/dL (70-99) 174 mg/dL (70-99) Sodium Level 135 mmol/L (136-145) Potassium Level 3.4 mmol/L (3.5-5.1) Chloride Level 100 mmol/L (98-107) Carbon Dioxide Level 27 mmol/L (21-32) Anion Gap 8 (6-14) Blood Urea Nitrogen 6 mg/dL (8-26) Creatinine 1.0 mg/dL (0.7-1.3) Estimated GFR (Cockcroft-Gault) 89.9 BUN/Creatinine Ratio 6 (6-20) Glucose Level 101 mg/dL (70-99) Calcium Level 7.6 mg/dL (8.5-10.1) Total Bilirubin 0.8 mg/dL (0.2-1.0) Aspartate Amino Transf (AST/SGOT) 16 U/L (15-37) Alanine Aminotransferase (ALT/SGPT) 12 U/L (16-63) Alkaline Phosphatase 51 U/L (46-116) Total Protein 6.0 g/dL (6.4-8.2) Albumin 2.1 g/dL (3.4-5.0) Albumin/Globulin Ratio 0.5 (1.0-1.7) Test 04/15/20 06:50 04/15/20 07:03 04/15/20 11:38 White Blood Count 5.3 x10^3/uL (4.0-11.0) Red Blood Count 4.50 x10^6/uL (4.30-5.70) Hemoglobin 13.0 g/dL (13.0-17.5) Hematocrit 39.1 % (39.0-53.0) Mean Corpuscular Volume 87 fL (79-100) Mean Corpuscular Hemoglobin 29 pg (25-35) Mean Corpuscular Hemoglobin Concent 33 g/dL (31-37) Red Cell Distribution Width 15.4 % (11.5-14.5) Platelet Count 227 x10^3/uL (140-400) Neutrophils (%) (Auto) 66 % (31-73) Lymphocytes (%) (Auto) 15 % (24-48) Monocytes (%) (Auto) 12 % (0-9) Eosinophils (%) (Auto) 6 % (0-3) Basophils (%) (Auto) 1 % (0-3) Neutrophils # (Auto) 3.5 x10^3/uL (1.8-7.7) Lymphocytes # (Auto) 0.8 x10^3/uL (1.0-4.8) Monocytes # (Auto) 0.6 x10^3/uL (0.0-1.1) Eosinophils # (Auto) 0.3 x10^3/uL (0.0-0.7) Basophils # (Auto) 0.0 x10^3/uL (0.0-0.2) Glucose (Fingerstick) 125 mg/dL (70-99) 181 mg/dL (70-99) Laboratory Tests Test 04/14/20 16:54 04/14/20 20:36 04/15/20 06:00 04/15/20 06:50 Glucose (Fingerstick) 224 mg/dL (70-99) 174 mg/dL (70-99) Sodium Level 135 mmol/L (136-145) Potassium Level 3.4 mmol/L (3.5-5.1) Chloride Level 100 mmol/L (98-107) Carbon Dioxide Level 27 mmol/L (21-32) Anion Gap 8 (6-14) Blood Urea Nitrogen 6 mg/dL (8-26) Creatinine 1.0 mg/dL (0.7-1.3) Estimated GFR (Cockcroft-Gault) 89.9 BUN/Creatinine Ratio 6 (6-20) Glucose Level 101 mg/dL (70-99) Calcium Level 7.6 mg/dL (8.5-10.1) Total Bilirubin 0.8 mg/dL (0.2-1.0) Aspartate Amino Transf (AST/SGOT) 16 U/L (15-37) Alanine Aminotransferase (ALT/SGPT) 12 U/L (16-63) Alkaline Phosphatase 51 U/L (46-116) Total Protein 6.0 g/dL (6.4-8.2) Albumin 2.1 g/dL (3.4-5.0) Albumin/Globulin Ratio 0.5 (1.0-1.7) White Blood Count 5.3 x10^3/uL (4.0-11.0) Red Blood Count 4.50 x10^6/uL (4.30-5.70) Hemoglobin 13.0 g/dL (13.0-17.5) Hematocrit 39.1 % (39.0-53.0) Mean Corpuscular Volume 87 fL (79-100) Mean Corpuscular Hemoglobin 29 pg (25-35) Mean Corpuscular Hemoglobin Concent 33 g/dL (31-37) Red Cell Distribution Width 15.4 % (11.5-14.5) Platelet Count 227 x10^3/uL (140-400) Neutrophils (%) (Auto) 66 % (31-73) Lymphocytes (%) (Auto) 15 % (24-48) Monocytes (%) (Auto) 12 % (0-9) Eosinophils (%) (Auto) 6 % (0-3) Basophils (%) (Auto) 1 % (0-3) Neutrophils # (Auto) 3.5 x10^3/uL (1.8-7.7) Lymphocytes # (Auto) 0.8 x10^3/uL (1.0-4.8) Monocytes # (Auto) 0.6 x10^3/uL (0.0-1.1) Eosinophils # (Auto) 0.3 x10^3/uL (0.0-0.7) Basophils # (Auto) 0.0 x10^3/uL (0.0-0.2) Test 04/15/20 07:03 04/15/20 11:38 Glucose (Fingerstick) 125 mg/dL (70-99) 181 mg/dL (70-99) Medications Current Medications Indocyanine Green (Ic Green) 7.5 mg ONCE ONCE IVP ; Start 04/10/20 at 06:00; Stop 04/10/20 at 06:01; Status DC Ondansetron HCl (Zofran) 4 mg PRN Q6HRS PRN IV NAUSEA/VOMITING; Start 04/10/20 at 07:00; Stop 04/11/20 at 06:59; Status DC Fentanyl Citrate (Fentanyl 2ml Vial) 25 mcg PRN Q5MIN PRN IV MILD PAIN 1-3; Start 04/10/20 at 07:00; Stop 04/11/20 at 06:59; Status DC Fentanyl Citrate (Fentanyl 2ml Vial) 50 mcg PRN Q5MIN PRN IV MODERATE TO SEVERE PAIN Last administered on 04/10/20at 16:43; Start 04/10/20 at 07:00; Stop 04/11/20 at 06:59; Status DC Morphine Sulfate (Morphine Sulfate) 1 mg PRN Q10MIN PRN IV SEVERE PAIN 7-10 Last administered on 04/10/20at 17:12; Start 04/10/20 at 07:00; Stop 04/11/20 at 06:59; Status DC Ringer's Solution 1,000 ml @ 30 mls/hr Q24H IV Last administered on 04/10/20at 11:54; Start 04/10/20 at 07:00; Stop 04/10/20 at 18:59; Status DC Hydromorphone HCl (Dilaudid) 0.5 mg PRN Q10MIN PRN IV SEV PAIN, Second choice Last administered on 04/10/20at 17:49; Start 04/10/20 at 07:00; Stop 04/11/20 at 06:59; Status DC Prochlorperazine Edisylate (Compazine) 5 mg PACU PRN PRN IV NAUSEA, MRX1 Last administered on 04/10/20at 17:58; Start 04/10/20 at 07:00; Stop 04/11/20 at 06:59; Status DC Acetaminophen (Tylenol) 1,000 mg OC PROC PRN PO PRE-OP Last administered on 04/10/20at 11:55; Start 04/10/20 at 06:00; Stop 04/10/20 at 18:00; Status DC Cefazolin Sodium/ Dextrose 50 ml @ 100 mls/hr 1X PREOP PRN IV PRIOR TO PROCEDURE Last administered on 04/10/20at 12:53; Start 04/10/20 at 06:00; Stop 04/10/20 at 18:00; Status DC Propofol (Diprivan) 200 mg STK-MED ONCE IV ; Start 04/10/20 at 10:58; Stop 04/10/20 at 10:58; Status DC Lidocaine HCl (Lidocaine Pf 2% Vial) 5 ml STK-MED ONCE .ROUTE ; Start 04/10/20 at 10:58; Stop 04/10/20 at 10:58; Status DC Dexamethasone Sodium Phosphate (Decadron) 20 mg STK-MED ONCE .ROUTE ; Start 04/10/20 at 10:58; Stop 04/10/20 at 10:59; Status DC Ondansetron HCl (Zofran) 4 mg STK-MED ONCE .ROUTE ; Start 04/10/20 at 10:58; Stop 04/10/20 at 10:59; Status DC Famotidine (Pepcid Vial) 20 mg STK-MED ONCE .ROUTE ; Start 04/10/20 at 10:58; Stop 04/10/20 at 10:59; Status DC Ephedrine Sulfate (ePHEDrine PF IN SALINE SYRINGE) 50 mg STK-MED ONCE IV ; Start 04/10/20 at 10:58; Stop 04/10/20 at 10:59; Status DC Glycopyrrolate (Robinul) 1 mg STK-MED ONCE .ROUTE ; Start 04/10/20 at 10:59; Stop 04/10/20 at 10:59; Status DC Rocuronium [place] (Zemuron) 50 mg STK-MED ONCE .ROUTE ; Start 04/10/20 at 10:5 9; Stop 04/10/20 at 10:59; Status DC Fentanyl Citrate (Fentanyl 2ml Vial) 100 mcg STK-MED ONCE .ROUTE ; Start 04/10/20 at 11:00; Stop 04/10/20 at 11:00; Status DC Insulin Human Lispro (HumaLOG VIAL for OP,RR ONLY) 0-10 units PRN Q1HR PRN SQ PER PROTOCOL Last administered on 04/10/20at 12:02; Start 04/10/20 at 12:00; Stop 04/10/20 at 21:53; Status DC Bupivacaine HCl/ Epinephrine Bitart (Sensorcaine-Epi 0.25%-1:716387 Mpf) 30 ml STK-MED ONCE .ROUTE Last administered on 04/10/20at 13:22; Start 04/10/20 at 1 2:35; Stop 04/10/20 at 12:35; Status DC Midazolam HCl (Versed) 2 mg STK-MED ONCE .ROUTE ; Start 04/10/20 at 12:37; Stop 04/10/20 at 12:37; Status DC Fentanyl Citrate (Fentanyl 2ml Vial) 100 mcg STK-MED ONCE .ROUTE ; Start 04/10/20 at 13:21; Stop 04/10/20 at 13:21; Status DC Sevoflurane (Ultane) 90 ml STK-MED ONCE IH ; Start 04/10/20 at 13:42; Stop 04/10/20 at 13:42; Status DC Neostigmine [place] (Neostigmine Methylsulfate) 5 mg STK-MED ONCE .ROUTE ; Start 04/10/20 at 13:42; Stop 04/10/20 at 13:42; Status DC Cefoxitin Sodium (Mefoxin) 1 gm Q8H IVP Last administered on 04/11/20at 14:11; Start 04/10/20 at 21:00; Stop 04/11/20 at 13:01; Status DC Sodium Chloride (Normal Saline Flush) 3 ml QSHIFT PRN IV AFTER MEDS AND BLOOD DRAWS; Start 04/10/20 at 16:00 Morphine Sulfate (Morphine Sulfate) 2 mg PRN Q3HRS PRN IV PAIN Last administered on 04/15/20at 00:31; Start 04/10/20 at 16:00 Oxycodone/ Acetaminophen (Percocet 5/325) 1 tab PRN Q4HRS PRN PO MILD PAIN, 1ST CHOICE Last administered on 04/15/20at 06:11; Start 04/10/20 at 16:00 Oxycodone/ Acetaminophen (Percocet 5/325) 2 tab PRN Q4HRS PRN PO MODERATE PAIN, SEVERE PAIN Last administered on 04/14/20at 09:43; Start 04/10/20 at 16:00 Ketorolac Tromethamine (Toradol 15mg Vial) 15 mg Q6HRS IV Last administered on 04/12/20at 12:13; Start 04/10/20 at 18:00; Stop 04/12/20 at 17:59; Status DC Ondansetron HCl (Zofran) 4 mg PRN Q6HRS PRN IV NAUSEA, 1ST CHOICE; Start 04/10/20 at 16:00 Dextrose/Lactated Ringer's 1,000 ml @ 75 mls/hr [id number] IV Last administered on 04/11/20at 05:32; Start 04/10/20 at 15:59 Fentanyl Citrate (Fentanyl 2ml Vial) 100 mcg STK-MED ONCE .ROUTE ; Start 04/10/20 at 16:28; Stop 04/10/20 at 16:28; Status DC Ketorolac Tromethamine (Toradol 30mg Vial) 30 mg STK-MED ONCE .ROUTE ; Start 04/10/20 at 16:57; Stop 04/10/20 at 16:57; Status DC Ketorolac Tromethamine (Toradol 30mg Vial) 30 mg 1X ONCE IVP Last administered on 04/10/20at 17:04; Start 04/10/20 at 17:00; Stop 04/10/20 at 17:15; Status DC Hydromorphone HCl (Dilaudid) 2 mg STK-MED ONCE .ROUTE ; Start 04/10/20 at 17:14; Stop 04/10/20 at 17:15; Status DC Prochlorperazine Edisylate (Compazine) 10 mg STK-MED ONCE .ROUTE ; Start 04/10/20 at 17:57; Stop 04/10/20 at 17:57; Status DC Insulin Human Lispro (HumaLOG) 0-7 UNITS TIDWMEALS SQ Last administered on 04/15/20at 12:27; Start 04/11/20 at 08:00 Dextrose (Dextrose 50%-Water Syringe) 12.5 gm PRN Q15MIN PRN IV SEE COMMENTS; Start 04/10/20 at 22:00 Non-Formulary Medication (Insulin Glargine,Hum.rec.anlog (Lantus Solostar)) 18 unit HS SQ ; Start 04/11/20 at 21:00; Status UNV Insulin Human Lispro (HumaLOG) 6 units 1X ONCE SQ Last administered on 04/10/20at 23:05; Start 04/10/20 at 22:00; Stop 04/10/20 at 22:01; Status DC Insulin Glargine (Lantus Syringe) 18 unit QHS SQ Last administered on 04/14/20at 22:58; Start 04/10/20 at 22:30 Tamsulosin HCl (Flomax) 0.4 mg DAILY PO Last administered on 04/15/20at 08:39; Start 04/12/20 at 09:00 Potassium Chloride/Water 100 ml @ 100 mls/hr Q1H IV Last administered on 04/14/20at 20:39; Start 04/14/20 at 19:00; Stop 04/14/20 at 20:59; Status DC Potassium Chloride (Klor-Con) 30 meq 1X ONCE PO Last administered on 04/15/20at 00:29; Start 04/15/20 at 01:00; Stop 04/15/20 at 01:01; Status DC Active Scripts Active Reported Children's Aspirin (Aspirin) 81 Mg Tab.chew 1 Tab PO DAILY 30 Days Humalog (Insulin Lispro) 100 Unit/1 Ml Insuln.pen SQ 8UNITS AC TID Centrum Silver Tablet (Multivits-Min/Fa/Lycopene/Lut) 1 Each Tablet 1 Each PO DAILY Metformin Hcl 500 Mg Tablet 500 Mg PO BID Levothyroxine Sodium 150 Mcg Tablet 150 Mcg PO DAILY Gulshan 5-20 Mg Tablet (Amlodipine Bes/Olmesartan Med) 1 Each Tablet 1 Each PO DAILY Fluvastatin Sodium 40 Mg Capsule 40 Mg PO HS Acyclovir 400 Mg Tablet 400 Mg PO DAILY Omeprazole 20 Mg Capsule.dr 20 Mg PO DAILY Lantus Solostar (Insulin Glargine,Hum.rec.anlog) 100 Unit/1 Ml Insuln.pen 18 Unit SQ HS Vitals/I & O Vital Sign - Last 24 Hours 04/14/20 04/14/20 04/14/20 04/14/20 15:00 17:17 19:00 19:00 Temp 97.7 98.7 97.7 98.7 Pulse 99 99 Resp 19 19 B/P (MAP) 149/83 (105) 148/75 (99) Pulse Ox 93 93 92 O2 Delivery Room Air Room Air Room Air Room Air O2 Flow Rate 2.0 04/14/20 04/14/20 04/14/20 04/14/20 19:35 22:52 23:00 23:52 Temp 98.4 98.4 Pulse 90 Resp 17 B/P (MAP) 159/72 (101) Pulse Ox 92 O2 Delivery Nasal Cannula Room Air Nasal Cannula Nasal Cannula O2 Flow Rate 2.0 2.0 2.0 04/15/20 04/15/20 04/15/20 04/15/20 00:31 02:17 03:00 06:11 Temp 98.6 98.6 Pulse 94 Resp 18 B/P (MAP) 152/89 (110) Pulse Ox 95 O2 Delivery Room Air Nasal Cannula Nasal Cannula Nasal Cannula O2 Flow Rate 2.0 2.0 2.0 04/15/20 04/15/20 04/15/20 04/15/20 07:00 07:11 08:00 11:00 Temp 98.5 98.4 98.5 98.4 Pulse 91 92 Resp 18 18 B/P (MAP) 152/81 (104) 157/80 (105) Pulse Ox 95 95 O2 Delivery Room Air Room Air Nasal Cannula Room Air O2 Flow Rate 2.0 Intake and Output 04/14/20 04/14/20 04/15/20 15:00 23:00 07:00 Intake Total 0 ml 300 ml Output Total 500 ml 1025 ml Balance -500 ml 0 ml -725 ml Justifications for Admission Other Justification CAROLINA GILLILAND MD Apr 15, 2020 13:33
[2020-04-15 15:00] VITALS: BP 149/79
[2020-04-15 19:00] VITALS: BP 161/84
[2020-04-15] MEDS: INSULIN GLARGINE SYRINGE. SQ SCH (21:08)
[2020-04-15 23:00] VITALS: BP 128/77
[2020-04-16 03:00] VITALS: BP 167/87
[2020-04-16] MEDS: IV DEXTROSE 5%-LACT RINGERS 1,000 ML IV SCH ×2 (05:19→18:39)
[2020-04-16 07:00] VITALS: BP 153/74
--- NOTE | 2020-04-16 07:54 | PDOC ---
SURGICAL PROGRESS NOTE DATE: 04/16/20 TIME: 07:53 Subjective Patient feeling better this morning has passing flatus and had a bowel movement overnight. He is asking about having his urinary catheter removed has been on Flomax for the last several days Vital Signs Vital Signs Date Time Temp Pulse Resp B/P (MAP) Pulse Ox O2 Delivery O2 Flow Rate FiO2 04/16/20 03:00 98.8 93 19 167/87 (113) 93 Room Air 98.8 04/15/20 08:00 2.0 I&O Intake and Output 04/16/20 07:00 Intake Total 1500 ml Output Total 2250 ml Balance -750 ml Intake Oral 1500 ml Output Urine Total 2250 ml PATIENT HAS A JOSEPH: Yes General: Alert, Oriented X3, Cooperative, mild distress Abdomen: Normal bowel sounds, Soft, Other (Mild incisional tenderness wounds clean dry and intact) Labs Laboratory Tests Test 04/14/20 08:00 04/14/20 11:40 04/14/20 16:54 04/14/20 20:36 Glucose (Fingerstick) 170 mg/dL (70-99) 202 mg/dL (70-99) 224 mg/dL (70-99) 174 mg/dL (70-99) Test 04/15/20 06:00 04/15/20 06:50 04/15/20 07:03 04/15/20 11:38 Sodium Level 135 mmol/L (136-145) Potassium Level 3.4 mmol/L (3.5-5.1) Chloride Level 100 mmol/L (98-107) Carbon Dioxide Level 27 mmol/L (21-32) Anion Gap 8 (6-14) Blood Urea Nitrogen 6 mg/dL (8-26) Creatinine 1.0 mg/dL (0.7-1.3) Estimated GFR (Cockcroft-Gault) 89.9 BUN/Creatinine Ratio 6 (6-20) Glucose Level 101 mg/dL (70-99) Calcium Level 7.6 mg/dL (8.5-10.1) Total Bilirubin 0.8 mg/dL (0.2-1.0) Aspartate Amino Transf (AST/SGOT) 16 U/L (15-37) Alanine Aminotransferase (ALT/SGPT) 12 U/L (16-63) Alkaline Phosphatase 51 U/L (46-116) Total Protein 6.0 g/dL (6.4-8.2) Albumin 2.1 g/dL (3.4-5.0) Albumin/Globulin Ratio 0.5 (1.0-1.7) White Blood Count 5.3 x10^3/uL (4.0-11.0) Red Blood Count 4.50 x10^6/uL (4.30-5.70) Hemoglobin 13.0 g/dL (13.0-17.5) Hematocrit 39.1 % (39.0-53.0) Mean Corpuscular Volume 87 fL (79-100) Mean Corpuscular Hemoglobin 29 pg (25-35) Mean Corpuscular Hemoglobin Concent 33 g/dL (31-37) Red Cell Distribution Width 15.4 % (11.5-14.5) Platelet Count 227 x10^3/uL (140-400) Neutrophils (%) (Auto) 66 % (31-73) Lymphocytes (%) (Auto) 15 % (24-48) Monocytes (%) (Auto) 12 % (0-9) Eosinophils (%) (Auto) 6 % (0-3) Basophils (%) (Auto) 1 % (0-3) Neutrophils # (Auto) 3.5 x10^3/uL (1.8-7.7) Lymphocytes # (Auto) 0.8 x10^3/uL (1.0-4.8) Monocytes # (Auto) 0.6 x10^3/uL (0.0-1.1) Eosinophils # (Auto) 0.3 x10^3/uL (0.0-0.7) Basophils # (Auto) 0.0 x10^3/uL (0.0-0.2) Glucose (Fingerstick) 125 mg/dL (70-99) 181 mg/dL (70-99) Test 04/15/20 16:13 04/15/20 21:07 04/16/20 07:07 Glucose (Fingerstick) 160 mg/dL (70-99) 196 mg/dL (70-99) 138 mg/dL (70-99) Laboratory Tests Test 04/15/20 11:38 04/15/20 16:13 04/15/20 21:07 04/16/20 07:07 Glucose (Fingerstick) 181 mg/dL (70-99) 160 mg/dL (70-99) 196 mg/dL (70-99) 138 mg/dL (70-99) Assessment/Plan Status post right colon resection laparoscopically having bowel movements will advance diet to regular We will remove Joseph catheter which was in place for urinary retention patient has been on Flomax did discuss that if he unable to void he will have to have the Joseph catheter replaced and go home with that to follow-up with urology Justicifation of Admission Dx: Justifications for Admission: Justification of Admission Dx: Yes VIVIAN VAZQUEZ MD Apr 16, 2020 07:54
[2020-04-16] MEDS: INSULIN LISPRO 300 UNITS/3 ML VIAL. SQ SCH ×3 (08:00→17:26)
[2020-04-16] MEDS: TAMSULOSIN 0.4 MG CAP.ER.24H. PO SCH (08:03)
[2020-04-16 08:09] LABS: BASO % 1 % (0-3); EOS # 0.2 x10^3/uL (0.0-0.7); EOS % 3 % (0-3); HEMATOCRIT 39.2 % (39.0-53.0); HEMOGLOBIN 13.3 g/dL (13.0-17.5); LYMPH # 0.7 x10^3/uL (1.0-4.8); LYMPH % 10 % (24-48); MEAN CORPUSCULAR HEMOGLOBIN 29 pg (25-35); MEAN CORPUSCULAR HGB CONC 34 g/dL (31-37); MEAN CORPUSCULAR VOLUME 86 fL (79-100); MONO # 0.8 x10^3/uL (0.0-1.1); MONO % 11 % (0-9); NEUT # 5.2 x10^3/uL (1.8-7.7); NEUT % 75 % (31-73); PLATELET COUNT 267 x10^3/uL (140-400); RED BLOOD COUNT 4.56 x10^6/uL (4.30-5.70); RED CELL DISTRIBUTION WIDTH 15.5 % (11.5-14.5); WHITE BLOOD COUNT 6.9 x10^3/uL (4.0-11.0)
[2020-04-16 08:36] LABS: ALBUMIN 2.2 g/dL (3.4-5.0); ALBUMIN/GLOBULIN RATIO 0.6 (1.0-1.7); CALCIUM 7.8 mg/dL (8.5-10.1); CREATININE 1.1 mg/dL (0.7-1.3); GFR 80.5; POTASSIUM 3.4 mmol/L (3.5-5.1); TOTAL BILIRUBIN 0.8 mg/dL (0.2-1.0); TOTAL PROTEIN 5.7 g/dL (6.4-8.2)
--- NOTE | 2020-04-16 09:22 | NUR ---
SW following. Discussed with RN, pt from home, room air, GI soft diet. Pt had a BM. RN advised no SW needs, anticipate discharge in the next day or two. SW will continue to follow.
[2020-04-16 11:18] VITALS: BP 142/73
[2020-04-16 14:50] VITALS: BP 144/80
--- NOTE | 2020-04-16 15:30 | NUR ---
Joe removed @ 0830. Pt unable to void. Bladder scanned and noted 450mL of urine. Paged Dr. Leong and received orders to replace the joe.
--- NOTE | 2020-04-16 16:37 | PDOC ---
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 He is having bowel movements, however he states he is having difficulty urinating. He feels the pressure of urine but states it is having a hard time passing it. Discussed the fact that we do not have an on- call urologist, and he would likely need to discharge tomorrow with a leg bag with urology follow-up. Vitals Vitals Vital Signs Date Time Temp Pulse Resp B/P (MAP) Pulse Ox O2 Delivery O2 Flow Rate FiO2 04/16/20 14:50 98.2 86 18 144/80 (101) 93 Room Air 98.2 04/15/20 08:00 2.0 Physical Exam General: Alert, Oriented X3, Cooperative, mild distress Heart: Regular rate, Normal S1 Lungs: Clear Abdomen: Normal bowel sounds, Soft, Other (Mild incisional tenderness wounds clean dry and intact) Extremities: No clubbing, No cyanosis, No edema Skin: No rashes Labs LABS Laboratory Tests Test 04/15/20 21:07 04/16/20 07:07 04/16/20 07:25 04/16/20 11:08 Glucose (Fingerstick) 196 mg/dL (70-99) 138 mg/dL (70-99) 225 mg/dL (70-99) White Blood Count 6.9 x10^3/uL (4.0-11.0) Red Blood Count 4.56 x10^6/uL (4.30-5.70) Hemoglobin 13.3 g/dL (13.0-17.5) Hematocrit 39.2 % (39.0-53.0) Mean Corpuscular Volume 86 fL (79-100) Mean Corpuscular Hemoglobin 29 pg (25-35) Mean Corpuscular Hemoglobin Concent 34 g/dL (31-37) Red Cell Distribution Width 15.5 % (11.5-14.5) Platelet Count 267 x10^3/uL (140-400) Neutrophils (%) (Auto) 75 % (31-73) Lymphocytes (%) (Auto) 10 % (24-48) Monocytes (%) (Auto) 11 % (0-9) Eosinophils (%) (Auto) 3 % (0-3) Basophils (%) (Auto) 1 % (0-3) Neutrophils # (Auto) 5.2 x10^3/uL (1.8-7.7) Lymphocytes # (Auto) 0.7 x10^3/uL (1.0-4.8) Monocytes # (Auto) 0.8 x10^3/uL (0.0-1.1) Eosinophils # (Auto) 0.2 x10^3/uL (0.0-0.7) Basophils # (Auto) 0.0 x10^3/uL (0.0-0.2) Sodium Level 137 mmol/L (136-145) Potassium Level 3.4 mmol/L (3.5-5.1) Chloride Level 101 mmol/L (98-107) Carbon Dioxide Level 28 mmol/L (21-32) Anion Gap 8 (6-14) Blood Urea Nitrogen 5 mg/dL (8-26) Creatinine 1.1 mg/dL (0.7-1.3) Estimated GFR (Cockcroft-Gault) 80.5 BUN/Creatinine Ratio 5 (6-20) Glucose Level 123 mg/dL (70-99) Calcium Level 7.8 mg/dL (8.5-10.1) Total Bilirubin 0.8 mg/dL (0.2-1.0) Aspartate Amino Transf (AST/SGOT) 30 U/L (15-37) Alanine Aminotransferase (ALT/SGPT) 23 U/L (16-63) Alkaline Phosphatase 55 U/L (46-116) Total Protein 5.7 g/dL (6.4-8.2) Albumin 2.2 g/dL (3.4-5.0) Albumin/Globulin Ratio 0.6 (1.0-1.7) Test 04/16/20 15:58 Glucose (Fingerstick) 274 mg/dL (70-99) Review of Systems Review of Systems Urinary retention. Denies nausea, denies vomiting, denies abdominal pain. Comment Review of Relevant I have reviewed the following items irwin (where applicable) has been applied. Labs Laboratory Tests Test 04/14/20 16:54 04/14/20 20:36 04/15/20 06:00 04/15/20 06:50 Glucose (Fingerstick) 224 mg/dL (70-99) 174 mg/dL (70-99) Sodium Level 135 mmol/L (136-145) Potassium Level 3.4 mmol/L (3.5-5.1) Chloride Level 100 mmol/L (98-107) Carbon Dioxide Level 27 mmol/L (21-32) Anion Gap 8 (6-14) Blood Urea Nitrogen 6 mg/dL (8-26) Creatinine 1.0 mg/dL (0.7-1.3) Estimated GFR (Cockcroft-Gault) 89.9 BUN/Creatinine Ratio 6 (6-20) Glucose Level 101 mg/dL (70-99) Calcium Level 7.6 mg/dL (8.5-10.1) Total Bilirubin 0.8 mg/dL (0.2-1.0) Aspartate Amino Transf (AST/SGOT) 16 U/L (15-37) Alanine Aminotransferase (ALT/SGPT) 12 U/L (16-63) Alkaline Phosphatase 51 U/L (46-116) Total Protein 6.0 g/dL (6.4-8.2) Albumin 2.1 g/dL (3.4-5.0) Albumin/Globulin Ratio 0.5 (1.0-1.7) White Blood Count 5.3 x10^3/uL (4.0-11.0) Red Blood Count 4.50 x10^6/uL (4.30-5.70) Hemoglobin 13.0 g/dL (13.0-17.5) Hematocrit 39.1 % (39.0-53.0) Mean Corpuscular Volume 87 fL (79-100) Mean Corpuscular Hemoglobin 29 pg (25-35) Mean Corpuscular Hemoglobin Concent 33 g/dL (31-37) Red Cell Distribution Width 15.4 % (11.5-14.5) Platelet Count 227 x10^3/uL (140-400) Neutrophils (%) (Auto) 66 % (31-73) Lymphocytes (%) (Auto) 15 % (24-48) Monocytes (%) (Auto) 12 % (0-9) Eosinophils (%) (Auto) 6 % (0-3) Basophils (%) (Auto) 1 % (0-3) Neutrophils # (Auto) 3.5 x10^3/uL (1.8-7.7) Lymphocytes # (Auto) 0.8 x10^3/uL (1.0-4.8) Monocytes # (Auto) 0.6 x10^3/uL (0.0-1.1) Eosinophils # (Auto) 0.3 x10^3/uL (0.0-0.7) Basophils # (Auto) 0.0 x10^3/uL (0.0-0.2) Test 04/15/20 07:03 04/15/20 11:38 04/15/20 16:13 04/15/20 21:07 Glucose (Fingerstick) 125 mg/dL (70-99) 181 mg/dL (70-99) 160 mg/dL (70-99) 196 mg/dL (70-99) Test 04/16/20 07:07 04/16/20 07:25 04/16/20 11:08 04/16/20 15:58 Glucose (Fingerstick) 138 mg/dL (70-99) 225 mg/dL (70-99) 274 mg/dL (70-99) White Blood Count 6.9 x10^3/uL (4.0-11.0) Red Blood Count 4.56 x10^6/uL (4.30-5.70) Hemoglobin 13.3 g/dL (13.0-17.5) Hematocrit 39.2 % (39.0-53.0) Mean Corpuscular Volume 86 fL (79-100) Mean Corpuscular Hemoglobin 29 pg (25-35) Mean Corpuscular Hemoglobin Concent 34 g/dL (31-37) Red Cell Distribution Width 15.5 % (11.5-14.5) Platelet Count 267 x10^3/uL (140-400) Neutrophils (%) (Auto) 75 % (31-73) Lymphocytes (%) (Auto) 10 % (24-48) Monocytes (%) (Auto) 11 % (0-9) Eosinophils (%) (Auto) 3 % (0-3) Basophils (%) (Auto) 1 % (0-3) Neutrophils # (Auto) 5.2 x10^3/uL (1.8-7.7) Lymphocytes # (Auto) 0.7 x10^3/uL (1.0-4.8) Monocytes # (Auto) 0.8 x10^3/uL (0.0-1.1) Eosinophils # (Auto) 0.2 x10^3/uL (0.0-0.7) Basophils # (Auto) 0.0 x10^3/uL (0.0-0.2) Sodium Level 137 mmol/L (136-145) Potassium Level 3.4 mmol/L (3.5-5.1) Chloride Level 101 mmol/L (98-107) Carbon Dioxide Level 28 mmol/L (21-32) Anion Gap 8 (6-14) Blood Urea Nitrogen 5 mg/dL (8-26) Creatinine 1.1 mg/dL (0.7-1.3) Estimated GFR (Cockcroft-Gault) 80.5 BUN/Creatinine Ratio 5 (6-20) Glucose Level 123 mg/dL (70-99) Calcium Level 7.8 mg/dL (8.5-10.1) Total Bilirubin 0.8 mg/dL (0.2-1.0) Aspartate Amino Transf (AST/SGOT) 30 U/L (15-37) Alanine Aminotransferase (ALT/SGPT) 23 U/L (16-63) Alkaline Phosphatase 55 U/L (46-116) Total Protein 5.7 g/dL (6.4-8.2) Albumin 2.2 g/dL (3.4-5.0) Albumin/Globulin Ratio 0.6 (1.0-1.7) Laboratory Tests Test 04/15/20 21:07 04/16/20 07:07 04/16/20 07:25 04/16/20 11:08 Glucose (Fingerstick) 196 mg/dL (70-99) 138 mg/dL (70-99) 225 mg/dL (70-99) White Blood Count 6.9 x10^3/uL (4.0-11.0) Red Blood Count 4.56 x10^6/uL (4.30-5.70) Hemoglobin 13.3 g/dL (13.0-17.5) Hematocrit 39.2 % (39.0-53.0) Mean Corpuscular Volume 86 fL (79-100) Mean Corpuscular Hemoglobin 29 pg (25-35) Mean Corpuscular Hemoglobin Concent 34 g/dL (31-37) Red Cell Distribution Width 15.5 % (11.5-14.5) Platelet Count 267 x10^3/uL (140-400) Neutrophils (%) (Auto) 75 % (31-73) Lymphocytes (%) (Auto) 10 % (24-48) Monocytes (%) (Auto) 11 % (0-9) Eosinophils (%) (Auto) 3 % (0-3) Basophils (%) (Auto) 1 % (0-3) Neutrophils # (Auto) 5.2 x10^3/uL (1.8-7.7) Lymphocytes # (Auto) 0.7 x10^3/uL (1.0-4.8) Monocytes # (Auto) 0.8 x10^3/uL (0.0-1.1) Eosinophils # (Auto) 0.2 x10^3/uL (0.0-0.7) Basophils # (Auto) 0.0 x10^3/uL (0.0-0.2) Sodium Level 137 mmol/L (136-145) Potassium Level 3.4 mmol/L (3.5-5.1) Chloride Level 101 mmol/L (98-107) Carbon Dioxide Level 28 mmol/L (21-32) Anion Gap 8 (6-14) Blood Urea Nitrogen 5 mg/dL (8-26) Creatinine 1.1 mg/dL (0.7-1.3) Estimated GFR (Cockcroft-Gault) 80.5 BUN/Creatinine Ratio 5 (6-20) Glucose Level 123 mg/dL (70-99) Calcium Level 7.8 mg/dL (8.5-10.1) Total Bilirubin 0.8 mg/dL (0.2-1.0) Aspartate Amino Transf (AST/SGOT) 30 U/L (15-37) Alanine Aminotransferase (ALT/SGPT) 23 U/L (16-63) Alkaline Phosphatase 55 U/L (46-116) Total Protein 5.7 g/dL (6.4-8.2) Albumin 2.2 g/dL (3.4-5.0) Albumin/Globulin Ratio 0.6 (1.0-1.7) Test 04/16/20 15:58 Glucose (Fingerstick) 274 mg/dL (70-99) Medications Current Medications Indocyanine Green (Ic Green) 7.5 mg ONCE ONCE IVP ; Start 04/10/20 at 06:00; Stop 04/10/20 at 06:01; Status DC Ondansetron HCl (Zofran) 4 mg PRN Q6HRS PRN IV NAUSEA/VOMITING; Start 04/10/20 at 07:00; Stop 04/11/20 at 06:59; Status DC Fentanyl Citrate (Fentanyl 2ml Vial) 25 mcg PRN Q5MIN PRN IV MILD PAIN 1-3; Start 04/10/20 at 07:00; Stop 04/11/20 at 06:59; Status DC Fentanyl Citrate (Fentanyl 2ml Vial) 50 mcg PRN Q5MIN PRN IV MODERATE TO SEVERE PAIN Last administered on 04/10/20at 16:43; Start 04/10/20 at 07:00; Stop at 06:59; Status DC Morphine Sulfate (Morphine Sulfate) 1 mg PRN Q10MIN PRN IV SEVERE PAIN 7-10 Last administered on 04/10/20at 17:12; Start 04/10/20 at 07:00; Stop 04/11/20 at 06:59; Status DC Ringer's Solution 1,000 ml @ 30 mls/hr Q24H IV Last administered on 04/10/20at 11:54; Start 04/10/20 at 07:00; Stop 04/10/20 at 18:59; Status DC Hydromorphone HCl (Dilaudid) 0.5 mg PRN Q10MIN PRN IV SEV PAIN, Second choice Last administered on 04/10/20at 17:49; Start 04/10/20 at 07:00; Stop 04/11/20 at 06:59; Status DC Prochlorperazine Edisylate (Compazine) 5 mg PACU PRN PRN IV NAUSEA, MRX1 Last administered on 04/10/20at 17:58; Start 04/10/20 at 07:00; Stop 04/11/20 at 06:59; Status DC Acetaminophen (Tylenol) 1,000 mg OC PROC PRN PO PRE-OP Last administered on 04/10/20at 11:55; Start 04/10/20 at 06:00; Stop 04/10/20 at 18:00; Status DC Cefazolin Sodium/ Dextrose 50 ml @ 100 mls/hr 1X PREOP PRN IV PRIOR TO PROCEDURE Last administered on 04/10/20at 12:53; Start 04/10/20 at 06:00; Stop 04/10/20 at 18:00; Status DC Propofol (Diprivan) 200 mg STK-MED ONCE IV ; Start 04/10/20 at 10:58; Stop 04/10/20 at 10:58; Status DC Lidocaine HCl (Lidocaine Pf 2% Vial) 5 ml STK-MED ONCE .ROUTE ; Start 04/10/20 at 10:58; Stop 04/10/20 at 10:58; Status DC Dexamethasone Sodium Phosphate (Decadron) 20 mg STK-MED ONCE .ROUTE ; Start 04/10/20 at 10:58; Stop 04/10/20 at 10:59; Status DC Ondansetron HCl (Zofran) 4 mg STK-MED ONCE .ROUTE ; Start 04/10/20 at 10:58; Stop 04/10/20 at 10:59; Status DC Famotidine (Pepcid Vial) 20 mg STK-MED ONCE .ROUTE ; Start 04/10/20 at 10:58; Stop 04/10/20 at 10:59; Status DC Ephedrine Sulfate (ePHEDrine PF IN SALINE SYRINGE) 50 mg STK-MED ONCE IV ; Start 04/10/20 at 10:58; Stop 04/10/20 at 10:59; Status DC Glycopyrrolate (Robinul) 1 mg STK-MED ONCE .ROUTE ; Start 04/10/20 at 10:59; Stop 04/10/20 at 10:59; Status DC Rocuronium [place] (Zemuron) 50 mg STK-MED ONCE .ROUTE ; Start 04/10/20 at 10:59; Stop 04/10/20 at 10:59; Status DC Fentanyl Citrate (Fentanyl 2ml Vial) 100 mcg STK-MED ONCE .ROUTE ; Start 04/10/20 at 11:00; Stop 04/10/20 at 11:00; Status DC Insulin Human Lispro (HumaLOG VIAL for OP,RR ONLY) 0-10 units PRN Q1HR PRN SQ PER PROTOCOL Last administered on 04/10/20at 12:02; Start 04/10/20 at 12:00; Stop 04/10/20 at 21:53; Status DC Bupivacaine HCl/ Epinephrine Bitart (Sensorcaine-Epi 0.25%-1:[id number] Mpf) 30 ml STK-MED ONCE .ROUTE Last administered on 04/10/20at 13:22; Start 04/10/20 at 12:35; Stop 04/10/20 at 12:35; Status DC Midazolam HCl (Versed) 2 mg STK-MED ONCE .ROUTE ; Start 04/10/20 at 12:37; Stop 04/10/20 at 12:37; Status DC Fentanyl Citrate (Fentanyl 2ml Vial) 100 mcg STK-MED ONCE .ROUTE ; Start 04/10/20 at 13:21; Stop 04/10/20 at 13:21; Status DC Sevoflurane (Ultane) 90 ml STK-MED ONCE IH ; Start 04/10/20 at 13:42; Stop 04/10/20 at 13:42; Status DC Neostigmine [place] (Neostigmine Methylsulfate) 5 mg STK-MED ONCE .ROUTE ; Start 04/10/20 at 13:42; Stop 04/10/20 at 13:42; Status DC Cefoxitin Sodium (Mefoxin) 1 gm Q8H IVP Last administered on 04/11/20at 14:11; Start 04/10/20 at 21:00; Stop 04/11/20 at 13:01; Status DC Sodium Chloride (Normal Saline Flush) 3 ml QSHIFT PRN IV AFTER MEDS AND BLOOD DRAWS; Start 04/10/20 at 16:00 Morphine Sulfate (Morphine Sulfate) 2 mg PRN Q3HRS PRN IV PAIN Last administered on 04/15/20at 00:31; Start 04/10/20 at 16:00 Oxycodone/ Acetaminophen (Percocet 5/325) 1 tab PRN Q4HRS PRN PO MILD PAIN, 1ST CHOICE Last administered on 04/15/20at 06:11; Start 04/10/20 at 16:00 Oxycodone/ Acetaminophen (Percocet 5/325) 2 tab PRN Q4HRS PRN PO MODERATE PAIN, SEVERE PAIN Last administered on 04/14/20at 09:43; Start 04/10/20 at 16:00 Ketorolac Tromethamine (Toradol 15mg Vial) 15 mg Q6HRS IV Last administered on 04/12/20at 12:13; Start 04/10/20 at 18:00; Stop 04/12/20 at 17:59; Status DC Ondansetron HCl (Zofran) 4 mg PRN Q6HRS PRN IV NAUSEA, 1ST CHOICE; Start 04/10/20 at 16:00 Dextrose/Lactated Ringer's 1,000 ml @ 75 mls/hr [id number] IV Last administered on 04/11/20at 05:32; Start 04/10/20 at 15:59 Fentanyl Citrate (Fentanyl 2ml Vial) 100 mcg STK-MED ONCE .ROUTE ; Start 04/10/20 at 16:28; Stop 04/10/20 at 16:28; Status DC Ketorolac Tromethamine (Toradol 30mg Vial) 30 mg STK-MED ONCE .ROUTE ; Start 04/10/20 at 16:57; Stop 04/10/20 at 16:57; Status DC Ketorolac Tromethamine (Toradol 30mg Vial) 30 mg 1X ONCE IVP Last administered on 04/10/20at 17:04; Start 04/10/20 at 17:00; Stop 04/10/20 at 17:15; Status DC Hydromorphone HCl (Dilaudid) 2 mg STK-MED ONCE .ROUTE ; Start 04/10/20 at 17:14; Stop 04/10/20 at 17:15; Status DC Prochlorperazine Edisylate (Compazine) 10 mg STK-MED ONCE .ROUTE ; Start 04/10/20 at 17:57; Stop 04/10/20 at 17:57; Status DC Insulin Human Lispro (HumaLOG) 0-7 UNITS TIDWMEALS SQ Last administered on 04/16/20at 12:18; Start 04/11/20 at 08:00 Dextrose (Dextrose 50%-Water Syringe) 12.5 gm PRN Q15MIN PRN IV SEE COMMENTS; Start 04/10/20 at 22:00 Non-Formulary Medication (Insulin Glargine,Hum.rec.anlog (Lantus Solostar)) 18 unit HS SQ ; Start 04/11/20 at 21:00; Status UNV Insulin Human Lispro (HumaLOG) 6 units 1X ONCE SQ Last administered on 04/10/20at 23:05; Start 8/25/20 at 22:00; Stop 04/10/20 at 22:01; Status DC Insulin Glargine (Lantus Syringe) 18 unit QHS SQ Last administered on 04/15/20at 21:08; Start 04/10/20 at 22:30 Tamsulosin HCl (Flomax) 0.4 mg DAILY PO Last administered on 04/16/20at 08:03; Start 04/12/20 at 09:00 Potassium Chloride/Water 100 ml @ 100 mls/hr Q1H IV Last administered on 04/14/20at 20:39; Start 04/14/20 at 19:00; Stop 04/14/20 at 20:59; Status DC Potassium Chloride (Klor-Con) 30 meq 1X ONCE PO Last administered on 04/15/20at 00:29; Start 04/15/20 at 01:00; Stop 04/15/20 at 01:01; Status DC Active Scripts Active Reported Children's Aspirin (Aspirin) 81 Mg Tab.chew 1 Tab PO DAILY 30 Days Humalog (Insulin Lispro) 100 Unit/1 Ml Insuln.pen SQ 8UNITS AC TID Centrum Silver Tablet (Multivits-Min/Fa/Lycopene/Lut) 1 Each Tablet 1 Each PO DAILY Metformin Hcl 500 Mg Tablet 500 Mg PO BID Levothyroxine Sodium 150 Mcg Tablet 150 Mcg PO DAILY Gulshan 5-20 Mg Tablet (Amlodipine Bes/Olmesartan Med) 1 Each Tablet 1 Each PO DAILY Fluvastatin Sodium 40 Mg Capsule 40 Mg PO HS Acyclovir 400 Mg Tablet 400 Mg PO DAILY Omeprazole 20 Mg Capsule.dr 20 Mg PO DAILY Lantus Solostar (Insulin Glargine,Hum.rec.anlog) 100 Unit/1 Ml Insuln.pen 18 Unit SQ HS Vitals/I & O Vital Sign - Last 24 Hours 04/15/20 04/15/20 04/15/20 04/16/20 19:00 20:05 23:00 03:00 Temp 98.1 98.9 98.8 98.1 98.9 98.8 Pulse 95 87 93 Resp 19 19 19 B/P (MAP) 161/84 (109) 128/77 (94) 167/87 (113) Pulse Ox 94 94 93 O2 Delivery Room Air Room Air Room Air Room Air 04/16/20 04/16/20 04/16/20 04/16/20 07:00 08:00 11:18 14:50 Temp 97.8 97.5 98.2 97.8 97.5 98.2 Pulse 82 89 86 Resp 18 18 18 B/P (MAP) 153/74 (100) 142/73 (96) 144/80 (101) Pulse Ox 93 93 93 O2 Delivery Room Air Room Air Room Air Room Air Intake and Output 04/15/20 04/15/20 04/16/20 15:00 23:00 07:00 Intake Total 350 ml 1150 ml 0 ml Output Total 1100 ml 1150 ml Balance 350 ml 50 ml -1150 ml Justicifation of Admission Dx: Justifications for Admission: Justification of Admission Dx: Yes LIVIA GONG MD Apr 16, 2020 16:36
[2020-04-16 19:00] VITALS: BP 137/74
[2020-04-16] MEDS: INSULIN GLARGINE SYRINGE. SQ SCH (21:42)
[2020-04-16 23:00] VITALS: BP 154/78
[2020-04-17 03:00] VITALS: BP 143/86
[2020-04-17] MEDS: oxyCODONE/APAP 5/325 1 TAB TABLET PO PRN (03:27)
[2020-04-17 06:33] LABS: BASO # 0.1 x10^3/uL (0.0-0.2); BASO % 1 % (0-3); EOS # 0.3 x10^3/uL (0.0-0.7); EOS % 5 % (0-3); HEMATOCRIT 37.5 % (39.0-53.0); HEMOGLOBIN 12.7 g/dL (13.0-17.5); LYMPH # 1.2 x10^3/uL (1.0-4.8); LYMPH % 17 % (24-48); MEAN CORPUSCULAR HEMOGLOBIN 29 pg (25-35); MEAN CORPUSCULAR HGB CONC 34 g/dL (31-37); MEAN CORPUSCULAR VOLUME 86 fL (79-100); MONO # 0.8 x10^3/uL (0.0-1.1); MONO % 12 % (0-9); NEUT # 4.5 x10^3/uL (1.8-7.7); NEUT % 66 % (31-73); PLATELET COUNT 286 x10^3/uL (140-400); RED BLOOD COUNT 4.35 x10^6/uL (4.30-5.70); RED CELL DISTRIBUTION WIDTH 15.7 % (11.5-14.5); WHITE BLOOD COUNT 6.9 x10^3/uL (4.0-11.0)
[2020-04-17 07:00] VITALS: BP 145/72
[2020-04-17 07:04] LABS: ALBUMIN 2.1 g/dL (3.4-5.0); ALBUMIN/GLOBULIN RATIO 0.6 (1.0-1.7); CALCIUM 7.9 mg/dL (8.5-10.1); CREATININE 0.9 mg/dL (0.7-1.3); GFR 101.5; POTASSIUM 3.5 mmol/L (3.5-5.1); TOTAL BILIRUBIN 0.6 mg/dL (0.2-1.0); TOTAL PROTEIN 5.5 g/dL (6.4-8.2)
[2020-04-17] MEDS: TAMSULOSIN 0.4 MG CAP.ER.24H. PO SCH (09:17)
--- NOTE | 2020-04-17 09:18 | NUR ---
SW following. Discussed with RN, pt had to have joe put back in. Plan is for pt to discharge home with joe, and follow up with outpatient urology. SW will continue to follow, should any discharge needs arise.
[2020-04-17] MEDS: INSULIN LISPRO 300 UNITS/3 ML VIAL. SQ SCH ×2 (09:22→12:20)
[2020-04-17 11:00] VITALS: BP 125/73
--- NOTE | 2020-04-17 12:16 | PDOC ---
FABI BECKMAN [employer] 04/17/20 1216: SURGICAL PROGRESS NOTE DATE: 04/17/20 TIME: 12:13 Subjective tolerating diet having stools pain manage required joe Vital Signs Vital Signs Date Time Temp Pulse Resp B/P (MAP) Pulse Ox O2 Delivery O2 Flow Rate FiO2 04/17/20 11:00 98.4 86 18 125/73 (90) 96 Room Air 98.4 I&O Intake and Output 04/17/20 07:00 Intake Total 440 ml Output Total 2000 ml Balance -1560 ml Intake Oral 440 ml Output Urine Total 2000 ml # Voids 1 General: Alert, Oriented X3, Cooperative Abdomen: Soft, Other (ND, dressing dry) Labs Laboratory Tests Test 04/15/20 16:13 04/15/20 21:07 04/16/20 07:07 04/16/20 07:25 Glucose (Fingerstick) 160 mg/dL (70-99) 196 mg/dL (70-99) 138 mg/dL (70-99) White Blood Count 6.9 x10^3/uL (4.0-11.0) Red Blood Count 4.56 x10^6/uL (4.30-5.70) Hemoglobin 13.3 g/dL (13.0-17.5) Hematocrit 39.2 % (39.0-53.0) Mean Corpuscular Volume 86 fL (79-100) Mean Corpuscular Hemoglobin 29 pg (25-35) Mean Corpuscular Hemoglobin Concent 34 g/dL (31-37) Red Cell Distribution Width 15.5 % (11.5-14.5) Platelet Count 267 x10^3/uL (140-400) Neutrophils (%) (Auto) 75 % (31-73) Lymphocytes (%) (Auto) 10 % (24-48) Monocytes (%) (Auto) 11 % (0-9) Eosinophils (%) (Auto) 3 % (0-3) Basophils (%) (Auto) 1 % (0-3) Neutrophils # (Auto) 5.2 x10^3/uL (1.8-7.7) Lymphocytes # (Auto) 0.7 x10^3/uL (1.0-4.8) Monocytes # (Auto) 0.8 x10^3/uL (0.0-1.1) Eosinophils # (Auto) 0.2 x10^3/uL (0.0-0.7) Basophils # (Auto) 0.0 x10^3/uL (0.0-0.2) Sodium Level 137 mmol/L (136-145) Potassium Level 3.4 mmol/L (3.5-5.1) Chloride Level 101 mmol/L (98-107) Carbon Dioxide Level 28 mmol/L (21-32) Anion Gap 8 (6-14) Blood Urea Nitrogen 5 mg/dL (8-26) Creatinine 1.1 mg/dL (0.7-1.3) Estimated GFR (Cockcroft-Gault) 80.5 BUN/Creatinine Ratio 5 (6-20) Glucose Level 123 mg/dL (70-99) Calcium Level 7.8 mg/dL (8.5-10.1) Total Bilirubin 0.8 mg/dL (0.2-1.0) Aspartate Amino Transf (AST/SGOT) 30 U/L (15-37) Alanine Aminotransferase (ALT/SGPT) 23 U/L (16-63) Alkaline Phosphatase 55 U/L (46-116) Total Protein 5.7 g/dL (6.4-8.2) Albumin 2.2 g/dL (3.4-5.0) Albumin/Globulin Ratio 0.6 (1.0-1.7) Test 04/16/20 11:08 04/16/20 15:58 04/16/20 21:15 04/17/20 04:55 Glucose (Fingerstick) 225 mg/dL (70-99) 274 mg/dL (70-99) 215 mg/dL (70-99) White Blood Count 6.9 x10^3/uL (4.0-11.0) Red Blood Count 4.35 x10^6/uL (4.30-5.70) Hemoglobin 12.7 g/dL (13.0-17.5) Hematocrit 37.5 % (39.0-53.0) Mean Corpuscular Volume 86 fL (79-100) Mean Corpuscular Hemoglobin 29 pg (25-35) Mean Corpuscular Hemoglobin Concent 34 g/dL (31-37) Red Cell Distribution Width 15.7 % (11.5-14.5) Platelet Count 286 x10^3/uL (140-400) Neutrophils (%) (Auto) 66 % (31-73) Lymphocytes (%) (Auto) 17 % (24-48) Monocytes (%) (Auto) 12 % (0-9) Eosinophils (%) (Auto) 5 % (0-3) Basophils (%) (Auto) 1 % (0-3) Neutrophils # (Auto) 4.5 x10^3/uL (1.8-7.7) Lymphocytes # (Auto) 1.2 x10^3/uL (1.0-4.8) Monocytes # (Auto) 0.8 x10^3/uL (0.0-1.1) Eosinophils # (Auto) 0.3 x10^3/uL (0.0-0.7) Basophils # (Auto) 0.1 x10^3/uL (0.0-0.2) Sodium Level 139 mmol/L (136-145) Potassium Level 3.5 mmol/L (3.5-5.1) Chloride Level 102 mmol/L (98-107) Carbon Dioxide Level 26 mmol/L (21-32) Anion Gap 11 (6-14) Blood Urea Nitrogen 7 mg/dL (8-26) Creatinine 0.9 mg/dL (0.7-1.3) Estimated GFR (Cockcroft-Gault) 101.5 BUN/Creatinine Ratio 8 (6-20) Glucose Level 165 mg/dL (70-99) Calcium Level 7.9 mg/dL (8.5-10.1) Total Bilirubin 0.6 mg/dL (0.2-1.0) Aspartate Amino Transf (AST/SGOT) 36 U/L (15-37) Alanine Aminotransferase (ALT/SGPT) 39 U/L (16-63) Alkaline Phosphatase 52 U/L (46-116) Total Protein 5.5 g/dL (6.4-8.2) Albumin 2.1 g/dL (3.4-5.0) Albumin/Globulin Ratio 0.6 (1.0-1.7) Test 04/17/20 07:20 04/17/20 10:49 Glucose (Fingerstick) 169 mg/dL (70-99) 350 mg/dL (70-99) Laboratory Tests Test 04/16/20 15:58 04/16/20 21:15 04/17/20 04:55 04/17/20 07:20 Glucose (Fingerstick) 274 mg/dL (70-99) 215 mg/dL (70-99) 169 mg/dL (70-99) White Blood Count 6.9 x10^3/uL (4.0-11.0) Red Blood Count 4.35 x10^6/uL (4.30-5.70) Hemoglobin 12.7 g/dL (13.0-17.5) Hematocrit 37.5 % (39.0-53.0) Mean Corpuscular Volume 86 fL (79-100) Mean Corpuscular Hemoglobin 29 pg (25-35) Mean Corpuscular Hemoglobin Concent 34 g/dL (31-37) Red Cell Distribution Width 15.7 % (11.5-14.5) Platelet Count 286 x10^3/uL (140-400) Neutrophils (%) (Auto) 66 % (31-73) Lymphocytes (%) (Auto) 17 % (24-48) Monocytes (%) (Auto) 12 % (0-9) Eosinophils (%) (Auto) 5 % (0-3) Basophils (%) (Auto) 1 % (0-3) Neutrophils # (Auto) 4.5 x10^3/uL (1.8-7.7) Lymphocytes # (Auto) 1.2 x10^3/uL (1.0-4.8) Monocytes # (Auto) 0.8 x10^3/uL (0.0-1.1) Eosinophils # (Auto) 0.3 x10^3/uL (0.0-0.7) Basophils # (Auto) 0.1 x10^3/uL (0.0-0.2) Sodium Level 139 mmol/L (136-145) Potassium Level 3.5 mmol/L (3.5-5.1) Chloride Level 102 mmol/L (98-107) Carbon Dioxide Level 26 mmol/L (21-32) Anion Gap 11 (6-14) Blood Urea Nitrogen 7 mg/dL (8-26) Creatinine 0.9 mg/dL (0.7-1.3) Estimated GFR (Cockcroft-Gault) 101.5 BUN/Creatinine Ratio 8 (6-20) Glucose Level 165 mg/dL (70-99) Calcium Level 7.9 mg/dL (8.5-10.1) Total Bilirubin 0.6 mg/dL (0.2-1.0) Aspartate Amino Transf (AST/SGOT) 36 U/L (15-37) Alanine Aminotransferase (ALT/SGPT) 39 U/L (16-63) Alkaline Phosphatase 52 U/L (46-116) Total Protein 5.5 g/dL (6.4-8.2) Albumin 2.1 g/dL (3.4-5.0) Albumin/Globulin Ratio 0.6 (1.0-1.7) Test 04/17/20 10:49 Glucose (Fingerstick) 350 mg/dL (70-99) Assessment/Plan dc home will set up outpt urology appt Justicifation of Admission Dx: Justifications for Admission: Justification of Admission Dx: Yes VIVIAN VAZQUEZ MD 04/17/20 1237: SURGICAL PROGRESS NOTE Assessment/Plan Agree with Man assessment and plan FABI BECKMAN APRN Apr 17, 2020 12:16 VIVIAN VAZQUEZ MD Apr 17, 2020 12:37
[2020-04-17] MEDS ORDERED: OXYC1TAB15 PO (12:18)
[2020-04-17] MEDS ORDERED: TAMS0.4C97 PO (12:18)
--- NOTE | 2020-04-17 12:21 | DISCH ---
DISCHARGE INSTRUCTIONS Condition on Discharge Condition on Discharge: Stable Activity After Discharge Activity Instructions for Disc: Activity as tolerated Other activity instructions: no lifting, pushing, pulling > 20 lbs Bathing Instructions: No Tub Bath until see (ok to shower, can leave incisions uncovered ) Lifting Instructions after Dis: No heavy lifting, No pulling or pushing Driving Instructions after Dis: Do not drive Diet after Discharge Diet after Discharge: Regular Wound Incision Care Wound/Incision Care: Ice to area for comfort, May get incision wet Other wound/incision instructi: joe care as instructed Contacting the DRRancho after DC Call your doctor for: If your condition worsens Follow-Up Follow up with: Dr Leong 2 weeks, call to schedule [phone] Follow Up With: Nurse to schedule appt with urology prior to discharge--[phone] FABI BECKMAN APRN Apr 17, 2020 12:21
[2020-04-17] MEDS ORDERED: INSULIN LISPRO 300 UNITS/3 ML VIAL. SQ ONE (12:30)
--- NOTE | 2020-04-17 14:45 | PDOC ---
PROGRESS NOTES Date of Service: DATE: 04/17/20 TIME: 14:40 Chief Complaint Chief Complaint Cecal polyp, s/p laparoscopic right colon resection with primary anastomosis History of Present Illness History of Present Illness Patient evaluated at bedside. Still with urinary retention. Discussed close follow-up with urologist, and discharge today with a leg bag Patterson. Vitals Vitals Vital Signs Date Time Temp Pulse Resp B/P (MAP) Pulse Ox O2 Delivery O2 Flow Rate FiO2 04/17/20 11:00 98.4 86 18 125/73 (90) 96 Room Air 98.4 Physical Exam General: Alert, Oriented X3, Cooperative Heart: Regular rate, Normal S1 Lungs: Clear Abdomen: Soft, Other (ND, dressing dry) Extremities: No clubbing, No cyanosis, No edema Skin: No rashes Labs LABS Laboratory Tests Test 04/16/20 15:58 04/16/20 21:15 04/17/20 04:55 04/17/20 07:20 Glucose (Fingerstick) 274 mg/dL (70-99) 215 mg/dL (70-99) 169 mg/dL (70-99) White Blood Count 6.9 x10^3/uL (4.0-11.0) Red Blood Count 4.35 x10^6/uL (4.30-5.70) Hemoglobin 12.7 g/dL (13.0-17.5) Hematocrit 37.5 % (39.0-53.0) Mean Corpuscular Volume 86 fL (79-100) Mean Corpuscular Hemoglobin 29 pg (25-35) Mean Corpuscular Hemoglobin Concent 34 g/dL (31-37) Red Cell Distribution Width 15.7 % (11.5-14.5) Platelet Count 286 x10^3/uL (140-400) Neutrophils (%) (Auto) 66 % (31-73) Lymphocytes (%) (Auto) 17 % (24-48) Monocytes (%) (Auto) 12 % (0-9) Eosinophils (%) (Auto) 5 % (0-3) Basophils (%) (Auto) 1 % (0-3) Neutrophils # (Auto) 4.5 x10^3/uL (1.8-7.7) Lymphocytes # (Auto) 1.2 x10^3/uL (1.0-4.8) Monocytes # (Auto) 0.8 x10^3/uL (0.0-1.1) Eosinophils # (Auto) 0.3 x10^3/uL (0.0-0.7) Basophils # (Auto) 0.1 x10^3/uL (0.0-0.2) Sodium Level 139 mmol/L (136-145) Potassium Level 3.5 mmol/L (3.5-5.1) Chloride Level 102 mmol/L (98-107) Carbon Dioxide Level 26 mmol/L (21-32) Anion Gap 11 (6-14) Blood Urea Nitrogen 7 mg/dL (8-26) Creatinine 0.9 mg/dL (0.7-1.3) Estimated GFR (Cockcroft-Gault) 101.5 BUN/Creatinine Ratio 8 (6-20) Glucose Level 165 mg/dL (70-99) Calcium Level 7.9 mg/dL (8.5-10.1) Total Bilirubin 0.6 mg/dL (0.2-1.0) Aspartate Amino Transf (AST/SGOT) 36 U/L (15-37) Alanine Aminotransferase (ALT/SGPT) 39 U/L (16-63) Alkaline Phosphatase 52 U/L (46-116) Total Protein 5.5 g/dL (6.4-8.2) Albumin 2.1 g/dL (3.4-5.0) Albumin/Globulin Ratio 0.6 (1.0-1.7) Test 04/17/20 10:49 Glucose (Fingerstick) 350 mg/dL (70-99) Review of Systems Review of Systems Urinary retention. Denies constipation, denies nausea, denies fever. Assessment and Plan Assessmemt and Plan Cecal polyp, urinary retention Plan: Status post robotic laparoscopic right colon resection. Will discharge with leg bag Patterson catheter and close urology follow-up. Comment Review of Relevant I have reviewed the following items irwin (where applicable) has been applied. Labs Laboratory Tests Test 04/15/20 16:13 04/15/20 21:07 04/16/20 07:07 04/16/20 07:25 Glucose (Fingerstick) 160 mg/dL (70-99) 196 mg/dL (70-99) 138 mg/dL (70-99) White Blood Count 6.9 x10^3/uL (4.0-11.0) Red Blood Count 4.56 x10^6/uL (4.30-5.70) Hemoglobin 13.3 g/dL (13.0-17.5) Hematocrit 39.2 % (39.0-53.0) Mean Corpuscular Volume 86 fL (79-100) Mean Corpuscular Hemoglobin 29 pg (25-35) Mean Corpuscular Hemoglobin Concent 34 g/dL (31-37) Red Cell Distribution Width 15.5 % (11.5-14.5) Platelet Count 267 x10^3/uL (140-400) Neutrophils (%) (Auto) 75 % (31-73) Lymphocytes (%) (Auto) 10 % (24-48) Monocytes (%) (Auto) 11 % (0-9) Eosinophils (%) (Auto) 3 % (0-3) Basophils (%) (Auto) 1 % (0-3) Neutrophils # (Auto) 5.2 x10^3/uL (1.8-7.7) Lymphocytes # (Auto) 0.7 x10^3/uL (1.0-4.8) Monocytes # (Auto) 0.8 x10^3/uL (0.0-1.1) Eosinophils # (Auto) 0.2 x10^3/uL (0.0-0.7) Basophils # (Auto) 0.0 x10^3/uL (0.0-0.2) Sodium Level 137 mmol/L (136-145) Potassium Level 3.4 mmol/L (3.5-5.1) Chloride Level 101 mmol/L (98-107) Carbon Dioxide Level 28 mmol/L (21-32) Anion Gap 8 (6-14) Blood Urea Nitrogen 5 mg/dL (8-26) Creatinine 1.1 mg/dL (0.7-1.3) Estimated GFR (Cockcroft-Gault) 80.5 BUN/Creatinine Ratio 5 (6-20) Glucose Level 123 mg/dL (70-99) Calcium Level 7.8 mg/dL (8.5-10.1) Total Bilirubin 0.8 mg/dL (0.2-1.0) Aspartate Amino Transf (AST/SGOT) 30 U/L (15-37) Alanine Aminotransferase (ALT/SGPT) 23 U/L (16-63) Alkaline Phosphatase 55 U/L (46-116) Total Protein 5.7 g/dL (6.4-8.2) Albumin 2.2 g/dL (3.4-5.0) Albumin/Globulin Ratio 0.6 (1.0-1.7) Test 04/16/20 11:08 04/16/20 15:58 04/16/20 21:15 04/17/20 04:55 Glucose (Fingerstick) 225 mg/dL (70-99) 274 mg/dL (70-99) 215 mg/dL (70-99) White Blood Count 6.9 x10^3/uL (4.0-11.0) Red Blood Count 4.35 x10^6/uL (4.30-5.70) Hemoglobin 12.7 g/dL (13.0-17.5) Hematocrit 37.5 % (39.0-53.0) Mean Corpuscular Volume 86 fL (79-100) Mean Corpuscular Hemoglobin 29 pg (25-35) Mean Corpuscular Hemoglobin Concent 34 g/dL (31-37) Red Cell Distribution Width 15.7 % (11.5-14.5) Platelet Count 286 x10^3/uL (140-400) Neutrophils (%) (Auto) 66 % (31-73) Lymphocytes (%) (Auto) 17 % (24-48) Monocytes (%) (Auto) 12 % (0-9) Eosinophils (%) (Auto) 5 % (0-3) Basophils (%) (Auto) 1 % (0-3) Neutrophils # (Auto) 4.5 x10^3/uL (1.8-7.7) Lymphocytes # (Auto) 1.2 x10^3/uL (1.0-4.8) Monocytes # (Auto) 0.8 x10^3/uL (0.0-1.1) Eosinophils # (Auto) 0.3 x10^3/uL (0.0-0.7) Basophils # (Auto) 0.1 x10^3/uL (0.0-0.2) Sodium Level 139 mmol/L (136-145) Potassium Level 3.5 mmol/L (3.5-5.1) Chloride Level 102 mmol/L (98-107) Carbon Dioxide Level 26 mmol/L (21-32) Anion Gap 11 (6-14) Blood Urea Nitrogen 7 mg/dL (8-26) Creatinine 0.9 mg/dL (0.7-1.3) Estimated GFR (Cockcroft-Gault) 101.5 BUN/Creatinine Ratio 8 (6-20) Glucose Level 165 mg/dL (70-99) Calcium Level 7.9 mg/dL (8.5-10.1) Total Bilirubin 0.6 mg/dL (0.2-1.0) Aspartate Amino Transf (AST/SGOT) 36 U/L (15-37) Alanine Aminotransferase (ALT/SGPT) 39 U/L (16-63) Alkaline Phosphatase 52 U/L (46-116) Total Protein 5.5 g/dL (6.4-8.2) Albumin 2.1 g/dL (3.4-5.0) Albumin/Globulin Ratio 0.6 (1.0-1.7) Test 04/17/20 07:20 04/17/20 10:49 Glucose (Fingerstick) 169 mg/dL (70-99) 350 mg/dL (70-99) Laboratory Tests Test 04/16/20 15:58 04/16/20 21:15 04/17/20 04:55 04/17/20 07:20 Glucose (Fingerstick) 274 mg/dL (70-99) 215 mg/dL (70-99) 169 mg/dL (70-99) White Blood Count 6.9 x10^3/uL (4.0-11.0) Red Blood Count 4.35 x10^6/uL (4.30-5.70) Hemoglobin 12.7 g/dL (13.0-17.5) Hematocrit 37.5 % (39.0-53.0) Mean Corpuscular Volume 86 fL (79-100) Mean Corpuscular Hemoglobin 29 pg (25-35) Mean Corpuscular Hemoglobin Concent 34 g/dL (31-37) Red Cell Distribution Width 15.7 % (11.5-14.5) Platelet Count 286 x10^3/uL (140-400) Neutrophils (%) (Auto) 66 % (31-73) Lymphocytes (%) (Auto) 17 % (24-48) Monocytes (%) (Auto) 12 % (0-9) Eosinophils (%) (Auto) 5 % (0-3) Basophils (%) (Auto) 1 % (0-3) Neutrophils # (Auto) 4.5 x10^3/uL (1.8-7.7) Lymphocytes # (Auto) 1.2 x10^3/uL (1.0-4.8) Monocytes # (Auto) 0.8 x10^3/uL (0.0-1.1) Eosinophils # (Auto) 0.3 x10^3/uL (0.0-0.7) Basophils # (Auto) 0.1 x10^3/uL (0.0-0.2) Sodium Level 139 mmol/L (136-145) Potassium Level 3.5 mmol/L (3.5-5.1) Chloride Level 102 mmol/L (98-107) Carbon Dioxide Level 26 mmol/L (21-32) Anion Gap 11 (6-14) Blood Urea Nitrogen 7 mg/dL (8-26) Creatinine 0.9 mg/dL (0.7-1.3) Estimated GFR (Cockcroft-Gault) 101.5 BUN/Creatinine Ratio 8 (6-20) Glucose Level 165 mg/dL (70-99) Calcium Level 7.9 mg/dL (8.5-10.1) Total Bilirubin 0.6 mg/dL (0.2-1.0) Aspartate Amino Transf (AST/SGOT) 36 U/L (15-37) Alanine Aminotransferase (ALT/SGPT) 39 U/L (16-63) Alkaline Phosphatase 52 U/L (46-116) Total Protein 5.5 g/dL (6.4-8.2) Albumin 2.1 g/dL (3.4-5.0) Albumin/Globulin Ratio 0.6 (1.0-1.7) Test 04/17/20 10:49 Glucose (Fingerstick) 350 mg/dL (70-99) Medications Current Medications Indocyanine Green (Ic Green) 7.5 mg ONCE ONCE IVP ; Start 04/10/20 at 06:00; Stop 04/10/20 at 06:01; Status DC Ondansetron HCl (Zofran) 4 mg PRN Q6HRS PRN IV NAUSEA/VOMITING; Start 04/10/20 at 07:00; Stop 04/11/20 at 06:59; Status DC Fentanyl Citrate (Fentanyl 2ml Vial) 25 mcg PRN Q5MIN PRN IV MILD PAIN 1-3; Start 04/10/20 at 07:00; Stop 04/11/20 at 06:59; Status DC Fentanyl Citrate (Fentanyl 2ml Vial) 50 mcg PRN Q5MIN PRN IV MODERATE TO SEVERE PAIN Last administered on 04/10/20at 16:43; Start 04/10/20 at 07:00; Stop 04/11/20 at 06:59; Status DC Morphine Sulfate (Morphine Sulfate) 1 mg PRN Q10MIN PRN IV SEVERE PAIN 7-10 Last administered on 04/10/20at 17:12; Start 04/10/20 at 07:00; Stop 04/11/20 at 06:59; Status DC Ringer's Solution 1,000 ml @ 30 mls/hr Q24H IV Last administered on 04/10/20at 11:54; Start 04/10/20 at 07:00; Stop 04/10/20 at 18:59; Status DC Hydromorphone HCl (Dilaudid) 0.5 mg PRN Q10MIN PRN IV SEV PAIN, Second choice Last administered on 04/10/20at 17:49; Start 04/10/20 at 07:00; Stop 04/11/20 at 06:59; Status DC Prochlorperazine Edisylate (Compazine) 5 mg PACU PRN PRN IV NAUSEA, MRX1 Last administered on 04/10/20at 17:58; Start 04/10/20 at 07:00; Stop 04/11/20 at 06:59; Status DC Acetaminophen (Tylenol) 1,000 mg OC PROC PRN PO PRE-OP Last administered on 04/10/20at 11:55; Start 04/10/20 at 06:00; Stop 04/10/20 at 18:00; Status DC Cefazolin Sodium/ Dextrose 50 ml @ 100 mls/hr 1X PREOP PRN IV PRIOR TO PROCEDURE Last administered on 04/10/20at 12:53; Start 04/10/20 at 06:00; Stop 04/10/20 at 18:00; Status DC Propofol (Diprivan) 200 mg STK-MED ONCE IV ; Start 04/10/20 at 10:58; Stop 04/10/20 at 10:58; Status DC Lidocaine HCl (Lidocaine Pf 2% Vial) 5 ml STK-MED ONCE .ROUTE ; Start 04/10/20 at 10:58; Stop 04/10/20 at 10:58; Status DC Dexamethasone Sodium Phosphate (Decadron) 20 mg STK-MED ONCE .ROUTE ; Start 04/10/20 at 10:58; Stop 04/10/20 at 10:59; Status DC Ondansetron HCl (Zofran) 4 mg STK-MED ONCE .ROUTE ; Start 04/10/20 at 10:58; Stop 04/10/20 at 10:59; Status DC Famotidine (Pepcid Vial) 20 mg STK-MED ONCE .ROUTE ; Start 04/10/20 at 10:58; Stop 04/10/20 at 10:59; Status DC Ephedrine Sulfate (ePHEDrine PF IN SALINE SYRINGE) 50 mg STK-MED ONCE IV ; Start 04/10/20 at 10:58; Stop 04/10/20 at 10:59; Status DC Glycopyrrolate (Robinul) 1 mg STK-MED ONCE .ROUTE ; Start 04/10/20 at 10:59; Stop 04/10/20 at 10:59; Status DC Rocuronium Datto (Zemuron) 50 mg STK-MED ONCE .ROUTE ; Start 04/10/20 at 10:59; Stop 04/10/20 at 10:59; Status DC Fentanyl Citrate (Fentanyl 2ml Vial) 100 mcg STK-MED ONCE .ROUTE ; Start 04/10/20 at 11:00; Stop 04/10/20 at 11:00; Status DC Insulin Human Lispro (HumaLOG VIAL for OP,RR ONLY) 0-10 units PRN Q1HR PRN SQ PER PROTOCOL Last administered on 04/10/20at 12:02; Start 04/10/20 at 12:00; Stop 04/10/20 at 21:53; Status DC Bupivacaine HCl/ Epinephrine Bitart (Sensorcaine-Epi 0.25%-1:626634 Mpf) 30 ml STK-MED ONCE .ROUTE Last administered on 04/10/20at 13:22; Start 04/10/20 at 12:35; Stop 04/10/20 at 12:35; Status DC Midazolam HCl (Versed) 2 mg STK-MED ONCE .ROUTE ; Start 04/10/20 at 12:37; Stop 04/10/20 at 12:37; Status DC Fentanyl Citrate (Fentanyl 2ml Vial) 100 mcg STK-MED ONCE .ROUTE ; Start 04/10/20 at 13:21; Stop 04/10/20 at 13:21; Status DC Sevoflurane (Ultane) 90 ml STK-MED ONCE IH ; Start 04/10/20 at 13:42; Stop 04/10/20 at 13:42; Status DC Neostigmine Datto (Neostigmine Methylsulfate) 5 mg STK-MED ONCE .ROUTE ; Start 04/10/20 at 13:42; Stop 04/10/20 at 13:42; Status DC Cefoxitin Sodium (Mefoxin) 1 gm Q8H IVP Last administered on 04/11/20at 14:11; Start 04/10/20 at 21:00; Stop 04/11/20 at 13:01; Status DC Sodium Chloride (Normal Saline Flush) 3 ml QSHIFT PRN IV AFTER MEDS AND BLOOD DRAWS; Start 04/10/20 at 16:00 Morphine Sulfate (Morphine Sulfate) 2 mg PRN Q3HRS PRN IV PAIN Last administered on 04/15/20at 00:31; Start 04/10/20 at 16:00 Oxycodone/ Acetaminophen (Percocet 5/325) 1 tab PRN Q4HRS PRN PO MILD PAIN, 1ST CHOICE Last administered on 04/17/20at 03:27; Start 04/10/20 at 16:00 Oxycodone/ Acetaminophen (Percocet 5/325) 2 tab PRN Q4HRS PRN PO MODERATE PAIN, SEVERE PAIN Last administered on 04/14/20at 09:43; Start 04/10/20 at 16:00 Ketorolac Tromethamine (Toradol 15mg Vial) 15 mg Q6HRS IV Last administered on 04/12/20at 12:13; Start 04/10/20 at 18:00; Stop 04/12/20 at 17:59; Status DC Ondansetron HCl (Zofran) 4 mg PRN Q6HRS PRN IV NAUSEA, 1ST CHOICE; Start 04/10/20 at 16:00 Dextrose/Lactated Ringer's 1,000 ml @ 75 mls/hr [id number] IV Last administered on 04/11/20at 05:32; Start 04/10/20 at 15:59; Stop 04/16/20 at 18:57; Status DC Fentanyl Citrate (Fentanyl 2ml Vial) 100 mcg STK-MED ONCE .ROUTE ; Start 04/10/20 at 16:28; Stop 04/10/20 at 16:28; Status DC Ketorolac Tromethamine (Toradol 30mg Vial) 30 mg STK-MED ONCE .ROUTE ; Start 04/10/20 at 16:57; Stop 04/10/20 at 16:57; Status DC Ketorolac Tromethamine (Toradol 30mg Vial) 30 mg 1X ONCE IVP Last administered on 04/10/20at 17:04; Start 04/10/20 at 17:00; Stop 04/10/20 at 17:15; Status DC Hydromorphone HCl (Dilaudid) 2 mg STK-MED ONCE .ROUTE ; Start 04/10/20 at 17:14; Stop 04/10/20 at 17:15; Status DC Prochlorperazine Edisylate (Compazine) 10 mg STK-MED ONCE .ROUTE ; Start 04/10/20 at 17:57; Stop 04/10/20 at 17:57; Status DC Insulin Human Lispro (HumaLOG) 0-7 UNITS TIDWMEALS SQ Last administered on 04/17/20at 12:20; Start 04/11/20 at 08:00 Dextrose (Dextrose 50%-Water Syringe) 12.5 gm PRN Q15MIN PRN IV SEE COMMENTS; Start 04/10/20 at 22:00 Non-Formulary Medication (Insulin Glargine,Hum.rec.anlog (Lantus Solostar)) 18 unit HS SQ ; Start 04/11/20 at 21:00; Status UNV Insulin Human Lispro (HumaLOG) 6 units 1X ONCE SQ Last administered on 04/10/20at 23:05; Start 04/10/20 at 22:00; Stop 04/10/20 at 22:01; Status DC Insulin Glargine (Lantus Syringe) 18 unit QHS SQ Last administered on 04/16/20at 21:42; Start 04/10/20 at 22:30 Tamsulosin HCl (Flomax) 0.4 mg DAILY PO Last administered on 04/17/20at 09:17; Start 04/12/20 at 09:00 Potassium Chloride/Water 100 ml @ 100 mls/hr Q1H IV Last administered on 04/14/20at 20:39; Start 04/14/20 at 19:00; Stop 04/14/20 at 20:59; Status DC Potassium Chloride (Klor-Con) 30 meq 1X ONCE PO Last administered on 04/15/20at 00:29; Start 04/15/20 at 01:00; Stop 04/15/20 at 01:01; Status DC Insulin Human Lispro (HumaLOG) 10 units 1X ONCE SQ Last administered on 04/17/20at 12:21; Start 04/17/20 at 12:30; Stop 04/17/20 at 12:31; Status DC Active Scripts Active Percocet 5-325 Mg Tablet (Oxycodone/Acetaminophen) 1 Each Tablet 1 Tab PO PRN Q4HRS PRN Flomax (Tamsulosin Hcl) 0.4 Mg Cap.er.24h 0.4 Mg PO DAILY Reported Children's Aspirin (Aspirin) 81 Mg Tab.chew 1 Tab PO DAILY 30 Days Humalog (Insulin Lispro) 100 Unit/1 Ml Insuln.pen SQ 8UNITS AC TID Centrum Silver Tablet (Multivits-Min/Fa/Lycopene/Lut) 1 Each Tablet 1 Each PO DAILY Metformin Hcl 500 Mg Tablet 500 Mg PO BID Levothyroxine Sodium 150 Mcg Tablet 150 Mcg PO DAILY Gulshan 5-20 Mg Tablet (Amlodipine Bes/Olmesartan Med) 1 Each Tablet 1 Each PO KHUSHBU Y Fluvastatin Sodium 40 Mg Capsule 40 Mg PO HS Acyclovir 400 Mg Tablet 400 Mg PO DAILY Omeprazole 20 Mg Capsule.dr 20 Mg PO DAILY Lantus Solostar (Insulin Glargine,Hum.rec.anlog) 100 Unit/1 Ml Insuln.pen 18 Unit SQ HS Vitals/I & O Vital Sign - Last 24 Hours 04/16/20 04/16/20 04/16/20 04/16/20 14:50 19:00 19:35 23:00 Temp 98.2 98.1 98.4 98.2 98.1 98.4 Pulse 86 72 85 Resp 18 20 18 B/P (MAP) 144/80 (101) 137/74 (95) 154/78 (103) Pulse Ox 93 91 92 O2 Delivery Room Air Room Air Room Air Room Air 04/17/20 04/17/20 04/17/20 04/17/20 03:00 03:27 04:27 07:00 Temp 98.2 97.8 98.2 97.8 Pulse 85 77 Resp 18 20 16 B/P (MAP) 143/86 (105) 145/72 (96) Pulse Ox 93 94 O2 Delivery Room Air Room Air Room Air Room Air 04/17/20 04/17/20 08:00 11:00 Temp 98.4 98.4 Pulse 86 Resp 18 B/P (MAP) 125/73 (90) Pulse Ox 96 O2 Delivery Room Air Room Air Intake and Output 04/16/20 04/16/20 04/17/20 15:00 23:00 07:00 Intake Total 120 ml 320 ml Output Total 900 ml 525 ml 575 ml Balance -900 ml -405 ml -255 ml Justicifation of Admission Dx: Justifications for Admission: Justification of Admission Dx: Yes LIVIA GONG MD Apr 17, 2020 14:45
[2020-04-17 15:00] VITALS: BP 136/76
--- NOTE | 2020-04-17 16:40 | NUR ---
PT DISCHARGED HOME WITH SELF CARE. DISCHARGE INSTRUCTIONS AND PRESCRIPTIONS DISCUSSED. CHANGED JOSEPH BAG TO LEG BAG. IV REMOVED. PT ASSISTED TO WHEELCHAIR AND WAS TAKEN TO MAIN ENTRANCE AND SECURED IN CAR WITH DAUGHTER.
--- NOTE | 2020-04-18 19:07 | PATHOLOGY ---
[facility] Accession Number: [id number] . 01 Material submitted: . cecum - CECUM . 01 Clinical history: . COLON POLYP . 02 Diagnosis: Small and large bowel "right colon resection": - Tubular adenoma forming a 2.4 x 1.8 cm polypoid mass adjacent to the cecum; negative for high-grade dysplasia and malignancy. . Vermiform appendix, excision: - No significant pathologic alteration. . Lymph nodes, mesenteric (6), excision: - Negative for metastatic carcinoma. . (MARCUS:adilia; 04/17/2020) [facility] 04/18/2020 1809 Local . 02 Electronically signed: . Pari Dunaway MD, Pathologist NPI- [id number] . 01 Gross description: . The specimen is received in formalin, labeled "Lauri White, cecum" and consists of a previously opened segment of cecum (7.0 cm in length and 4.8 cm in diameter) with contiguous terminal ileum stump (3.8 cm in length and 2.0 cm in diameter). The appendix is present measuring 8.8 cm in length and up to 0.6 cm in diameter and the mesocolic fat measures up to 4.0 cm. Both margins have a staple line. The serosa is pink-ball and shiny. Present 0.2 cm adjacent the ileocecal valve is a bosselated sessile brown polyp measuring 2.4 x 1.8 cm that is 4.0 cm from proximal and 4.0 cm from distal. The uninvolved mucosa is ball with no additional polyps or mass lesions. Sectioning reveals the polyp is confined to the mucosa. The appendix reveals a pinpoint lumen with possible obliteration of the tip. The mesocolic fat reveals 4 lymph node candidates. Acid Changer sections are submitted as follows: . A1: Proximal margin A2: Posterior margin A3-A6: Entire mass A7: Ileocecal valve A8: Appendix A9: 1 trisected lymph node A10: 3 intact lymph node candidates A11-A14: Lymphovascular bundles (SDY; 04/12/2020) SY[facility]/SYU 04/18/2020 1809 Local . 02 Pathologist provided ICD-10: D12.6 . 02 CPT . 838872 Specimen Comment: A courtesy copy of this report has been sent to [phone] Specimen Comment: [id number] Specimen Comment: Report sent to / DR POOLE Performed at: 01 [facility] [address] [id number] MD Geraldo Monroe MD Phone: [phone] Performed at: [address] [facility] [address] [id number] MD Rico Casiano MD Phone: [phone]
== END 2020-04-17 16:30 | disposition home or self-care (01) | DRG 329 ==
LOC: OPSVCIP 11:14 → 4 NORTH 17:50
PROVIDERS: ADMIT Surgery; ATTEND Surgery
PROC: 0DTF4ZZ Resection of Right Large Intestine, Percutaneous Endoscopic Approach (ICD-10-PCS; 2020-04-10)
PROC: 8E0W4CZ Robotic Assisted Procedure of Trunk Region, Percutaneous Endoscopic Approach (ICD-10-PCS; 2020-04-10)
PROC: 0DBH4ZZ Excision of Cecum, Percutaneous Endoscopic Approach (ICD-10-PCS; principal; 2020-04-10 13:00)
DX: K63.5 Polyp of colon (principal); E43 Unspecified severe protein-calorie malnutrition; K56.7 Ileus, unspecified; E03.9 Hypothyroidism, unspecified; E11.9 Type 2 diabetes mellitus without complications; F41.9 Anxiety disorder, unspecified; I10 Essential (primary) hypertension; Z20.828 Contact with and (suspected) exposure to other viral communicable diseases; K21.9 Gastro-esophageal reflux disease without esophagitis; N40.1 Benign prostatic hyperplasia with lower urinary tract symptoms; R33.8 Other retention of urine; Z51.5 Encounter for palliative care; Z83.3 Family history of diabetes mellitus; Z87.19 Personal history of other diseases of the digestive system; Z68.32 Body mass index [BMI] 32.0-32.9, adult
CPT/HCPCS: 36415; 80053; 82962; 83036; 85007; 85025; A7015; C1769; J0690; J0694; J0780; J1100; J1170; J1815; J1885; J2250; J2270; J2405; J2704; J2710; J3010; J3480; J3490; J7030; J7120; J7121; 97110-GP; 97116-GP; 97530-GP; G0378

== ENCOUNTER → 2021-04-05 | Day surgery (SDC) | payer MEDICARE ==
[~2021-04-05] VITALS: Ht 170.2 cm; Wt 90.9 kg
[~2021-04-05] MED LIST changes: -ACETAMINOPHEN 500 MG TABLET PO PRN; +ACYC-12 PO; -ACYC400T PO; -DEXAMETHASONE SOD PHOS 20 MG/5 ML VIAL. ONE; +DOXY50CA PO; -FAMOTIDINE 20 MG/2 ML VIAL ONE; -GLYCOPYRROLATE 1 MG/5 ML VIAL. ONE; -INDOCYANINE GREEN 25 MG VIAL. IVP ONE; -LIDOCAINE 2% PF 5 ML VIAL. ONE; -ONDANSETRON PF 4 MG/2 ML VIAL. IV PRN; -ONDANSETRON PF 4 MG/2 ML VIAL. ONE; +OXYC1TAB15 PO; -PROCHLORPERAZINE 10 MG/2 ML VIAL. IV PRN; -ROCURONIUM 50 MG/5 ML VIAL. ONE; +TAMS0.4C97 PO; -ePHEDrine PF IN SALINE 50 MG/10 ML SYRINGE. IV ONE; -fentaNYL PF VIAL 100 MCG/2 ML VIAL IV PRN; -fentaNYL PF VIAL 100 MCG/2 ML VIAL ONE
[2021-04-05 07:18] VITALS: BP 134/74
[2021-04-05 09:10] VITALS: BP 105/65
--- NOTE | 2021-04-05 21:56 | CONS ---
DATE OF CONSULTATION: 04/05/2021 REASON FOR CONSULTATION: History of colon polyps, status post right colon resection. HISTORY OF PRESENT ILLNESS: A 70-year-old -[place] male with past medical history significant for colonic polyps as well as hypertension, diabetes, hypothyroidism, seen for interval colon exam and tubulovillous polyp of the ileocecal valve that was unresectable surgically then resected. The patient is here for followup. There has been no change in bowel habits, diarrhea, constipation, bleeding or additional constitutional symptoms. PAST MEDICAL HISTORY: Diabetes, hypothyroidism, gastroesophageal reflux disease, hypertension. ALLERGIES: None. MEDICATIONS: Include acyclovir, amlodipine, aspirin, doxycycline, fluvastatin, insulin, levothyroxine, metformin, omeprazole, and tamsulosin. FAMILY AND SOCIAL HISTORY: Significant for pancreatic cancer that was in his mother, breast cancer in his mother, colon cancer in his father, hypertension in both parents, diabetes in uncle, stomach cancer in his brother. Nonsmoker, social drinker. PAST SURGICAL HISTORY: Vasectomy, surgery, right hemicolectomy. PHYSICAL EXAMINATION: GENERAL: Reveals a well-nourished, well-developed -[place] male who is alert, cooperative, in no acute distress. VITAL SIGNS: Temperature is 98, pulse 79, respirations 20. LUNGS: Clear. CARDIOVASCULAR: Reveals S1, S2, without S3, S4 or appreciable murmur. ABDOMEN: Reveals a soft abdomen, normal bowel sounds, no appreciable hepatosplenomegaly. Multiple surgical incisions. EXTREMITIES: Reveals no cyanosis, clubbing or edema. IMPRESSION: History of ileocecal valve, tubulovillous adenoma, status post colon resection. Surveillance exam is recommended at this time. Risks and benefits were discussed. The patient is willing to proceed at this time. I thank for allowing us to consult and participate in the patient's care. RATNA/LU DR: Pio TID: [id number]
--- NOTE | 2021-04-08 17:07 | PATHOLOGY ---
[facility] Accession Number: [id number] . 01 Material submitted: . colon - DESCENDING COLON POLYP. Modifiers: descending . 01 Clinical history: . HX OF COLON ADENOMA COLON POLYP 5 YR CRC SCREEN . 02 Diagnosis: Colon biopsies, descending colon polyps: - Tubular adenomas. See comment. (JPM:roller maker; 04/08/2021) [facility] 04/08/2021 1437 Local . 02 Comment: Sections of the descending colon biopsy reveal multiple segments of colonic mucosa. Approximately 7 of the biopsy segments are those of a tubular adenoma. The remaining biopsy segments consist of normal or mildly hyperplastic colonic mucosa. There is no high-grade dysplasia or evidence of malignancy. (JPM:roller maker; 04/08/2021) . 02 Electronically signed: . Cm Powers MD, Pathologist NPI- [id number] . 01 Gross description: . Received in formalin labeled "Lauri White, descending colon polyp" are multiple ball-brown soft tissue fragments measuring in aggregate 2.2 x 0.5 x 0.1 cm. The specimen is submitted entirely in A1. ([facility] [place] [place]; 04/06/2021) [facility] 04/06/2021 1114 Local . 02 Pathologist provided ICD-10: D12.4 . 02 CPT . 243981 Specimen Comment: A courtesy copy of this report has been sent to [phone] Specimen Comment: [id number] Specimen Comment: Report sent to / DR MOELLER Performed at: 01 [facility] [address] [facility], [place], [place] [id number] MD David Whitmore MD Phone: [phone] Performed at: 02 [facility] [address] [place], [place] [id number] MD Cm Powers MD Phone: [phone]
== END | disposition home or self-care (01) ==
LOC: ENDOS 06:50
PROVIDERS: ATTEND Internal Medicine Gastroenterology
DX: Z08 Encounter for follow-up examination after completed treatment for malignant neoplasm (principal); D12.4 Benign neoplasm of descending colon; K64.0 First degree hemorrhoids; K63.89 Other specified diseases of intestine; K57.30 Diverticulosis of large intestine without perforation or abscess without bleeding; K21.9 Gastro-esophageal reflux disease without esophagitis; E78.00 Pure hypercholesterolemia, unspecified; I10 Essential (primary) hypertension; E03.9 Hypothyroidism, unspecified; E11.9 Type 2 diabetes mellitus without complications; Z86.010 Personal history of colon polyps; Z79.82 Long term (current) use of aspirin; Z79.84 Long term (current) use of oral hypoglycemic drugs; Z79.899 Other long term (current) drug therapy; Z98.890 Other specified postprocedural states; Z72.89 Other problems related to lifestyle; Z80.0 Family history of malignant neoplasm of digestive organs; Z80.3 Family history of malignant neoplasm of breast; Z82.49 Family history of ischemic heart disease and other diseases of the circulatory system; Z83.3 Family history of diabetes mellitus
CPT/HCPCS: 45380; 82962; 88305; J2704